=== PATIENT | male | born 1965 | race Caucasian/White ===

== ENCOUNTER 2017-02-11 06:20 | Inpatient (IN) | payer BC ==
[~2017-02-11] VITALS: Ht 188 cm; Wt 98.4 kg
[2017-02-11] VITALS (34 sets, daily range): BP systolic 133–238; BP diastolic 46–125; PULSE 54–101; RESP 11–26; TEMP 97.6–98.3; O2SAT 93–98
[~2017-02-11 06:20] MED LIST: GLYB1TAB93 PO; HYDR-3288 PO; INDO50CA PO; LOSA100T PO; METO100T PO; TEMA15CA PO
[2017-02-11] MEDS ORDERED: ASPIRIN 81 MG CHEW TAB ONE (06:38)
[2017-02-11] MEDS ORDERED: SODIUM CHLORIDE 0.9% FLUSH 10 ML FLUSH IVF PRN (06:45)
[2017-02-11] MEDS ORDERED: ASPIRIN 81 MG CHEW TAB PO ONE (06:45)
[2017-02-11] MEDS ORDERED: SODIUM CHLOR 0.9% 1000 ML INJ 1,000 ML IV SCH (06:45)
[2017-02-11] MEDS ORDERED: ONDANSETRON HCL 4 MG/2 ML VIAL IV PUSH ONE (06:45)
--- NOTE | 2017-02-11 06:47 | PD ---
HPI Chief Complaint: chest pain Time Seen by Provider: 06:40 Travel History International Travel<30 days: No Contact w/Intl Traveler<30days: No Traveled to known affect area: No History of Present Illness HPI 52-year-old male presents to the emergency department for complaint of chest pain. Patient has associated nausea. Patient has history of hypertension and diabetes. Patient is a nonsmoker. Patient has family history of cardiac disease with brother passing away at age 63 from myocardial infarction. Patient states he is very physically active and wrote his bicycle 30 miles on Friday. Patient denies any known history of gallbladder disease but has noted some abdominal discomfort as well. Patient does take antihypertensives and diabetic medications. Patient rates his pain as moderate to severe. No report of referred neck jaw back shoulder arm pain or shortness of breath or diaphoresis. No recent long distance travel protracted bedrest her surgical procedure. Patient is not described as pleuritic. PFSH Past Medical History Narrative Medical Diabetes hypertension: No tobacco use: Nursing notes reviewed Autoimmune Disease: No Blood Disorders: No Heart Rhythm Problems: No Cancer: No Cardiovascular Problems: Yes High Cholesterol: No Chest Pain: No Congestive Heart Failure: No Diabetes: Yes Diminished Hearing: No Endocrine: No Genitourinary: No Hypertension: Yes Immune Disorder: No Implanted Vascular Access Dvce: Yes (PICC RIGHT UPPER ARM) Musculoskeletal: Yes (CELLULITIS RIGHT LOWER LEG) Neurologic: No Psychiatric: No Reproductive: No Respiratory: No Immunizations Current: Yes Thyroid Disease: No Past Surgical History Other Surgery: Yes (LEFT HIP 1991, HAMSTRING REPAIR-HEMOTOMA) Social History Alcohol Use: Yes (OCCASIONAL) Tobacco Use: No Substance Use: No Allergies-Medications (Allergen,Severity, Reaction): Coded Allergies: *MDRO Multi-Drug Resistant Organism (Unverified Adverse Reaction, Unknown , 02/11/17) MRSA Reported Meds & Prescriptions Reported Meds & Active Scripts Active Reported Temazepam 15 Mg Cap 15 Mg PO HS PRN Metoprolol Tartrate 100 Mg Tab 100 Mg PO BID Glyburide-Metformin 2.5-500 Mg Tab 1 Tab PO BID Take with a meal Review of Systems Except as stated in HPI: all other systems reviewed are Neg Eyes: No: Visual changes HENT: No: Headaches Cardiovascular: Positive: Chest Pain or Discomfort Respiratory: No: Shortness of Breath Gastrointestinal: Positive: Nausea, Abdominal Pain Musculoskeletal: No: Myalgias, Arthralgias, Pain Skin: No Rash Neurologic: No: Weakness Psychiatric: No: Anxiety Hematologic/Lymphatic: No: Lymph Node Enlargement Physical Exam Narrative GENERAL: Well-developed well-nourished male appears mildly anxious in no respiratory distress SKIN: Warm and dry. HEAD: Normocephalic. EYES: No scleral icterus. No injection or drainage. NECK: Supple, trachea midline. No JVD or lymphadenopathy. CARDIOVASCULAR: Regular rate and rhythm without murmurs, gallops, or rubs. RESPIRATORY: Breath sounds equal bilaterally. No accessory muscle use. GASTROINTESTINAL: Abdomen soft, bilateral upper quadrant tenderness to palpation without guarding or rebound and no palpable pulsatile mass, nondistended. MUSCULOSKELETAL: No cyanosis, or edema. Radial and dorsalis pedis pulses 2+ to palpation bilaterally BACK: Nontender without obvious deformity. No CVA tenderness. Data Data Last Documented VS Vital Signs Date Time Temp Pulse Resp B/P (MAP) Pulse Ox O2 Delivery O2 Flow Rate FiO2 02/11/17 07:03 92 18 209/108 (141) 97 Room Air 02/11/17 06:35 98.3 Orders Orders Aspirin Chew (Aspirin Chew) (02/11/17 06:38) Electrocardiogram (02/11/17 06:40) Ckmb (Isoenzyme) Profile (02/11/17 06:40) Complete Blood Count With Diff (02/11/17 06:40) Comprehensive Metabolic Panel (02/11/17 06:40) Magnesium (Mg) (02/11/17 06:40) Prothrombin Time / Inr (Pt) (02/11/17 06:40) Act Partial Throm Time (Ptt) (02/11/17 06:40) Troponin I (02/11/17 06:40) Lipase (02/11/17 06:40) Chest, Single Ap (02/11/17 06:40) Ecg Monitoring (02/11/17 06:40) Bilateral Bp Monitoring (02/11/17 06:40) Iv Access Insert/Monitor (02/11/17 06:40) Oximetry (02/11/17 06:40) Oxygen Administration (02/11/17 06:40) Aspirin Chew (Aspirin Chew) (02/11/17 06:45) Sodium Chloride 0.9% Flush (Ns Flush) (02/11/17 06:45) Nitroglycerin Sl (Nitrostat Sl) (02/11/17 06:45) Sodium Chlor 0.9% 1000 Ml Inj (Ns 1000 M (02/11/17 06:45) Ondansetron Inj (Zofran Inj) (02/11/17 06:45) Acetaminophen (Tylenol) (02/11/17 07:00) Ct Abd/Pel W Iv Contrast(Rout) (02/11/17 ) Hydromorphone Pf Inj (Dilaudid Pf Inj) (02/11/17 07:15) Labs Laboratory Tests Test 02/11/17 06:40 White Blood Count 3.7 TH/MM3 Red Blood Count 4.07 MIL/MM3 Hemoglobin 13.9 GM/DL Hematocrit 40.1 % Mean Corpuscular Volume 98.6 FL Mean Corpuscular Hemoglobin 34.1 PG Mean Corpuscular Hemoglobin Concent 34.6 % Red Cell Distribution Width 12.0 % Platelet Count 72 TH/MM3 Mean Platelet Volume 8.4 FL Neutrophils (%) (Auto) 60.7 % Lymphocytes (%) (Auto) 23.1 % Monocytes (%) (Auto) 12.2 % Eosinophils (%) (Auto) 2.5 % Basophils (%) (Auto) 1.5 % Neutrophils # (Auto) 2.3 TH/MM3 Lymphocytes # (Auto) 0.8 TH/MM3 Monocytes # (Auto) 0.4 TH/MM3 Eosinophils # (Auto) 0.1 TH/MM3 Basophils # (Auto) 0.1 TH/MM3 CBC Comment AUTO DIFF Prothrombin Time 12.7 SEC Prothromb Time International Ratio 1.1 RATIO Activated Partial Thromboplast Time 27.5 SEC Blood Urea Nitrogen 15 MG/DL Creatinine 1.30 MG/DL Random Glucose 261 MG/DL Total Protein 8.0 GM/DL Albumin 3.4 GM/DL Calcium Level 8.7 MG/DL Magnesium Level 1.4 MG/DL Alkaline Phosphatase 156 U/L Aspartate Amino Transf (AST/SGOT) 96 U/L Alanine Aminotransferase (ALT/SGPT) 66 U/L Total Bilirubin 1.6 MG/DL Sodium Level 137 MEQ/L Potassium Level 3.3 MEQ/L Chloride Level 97 MEQ/L Carbon Dioxide Level 30.1 MEQ/L Anion Gap 10 MEQ/L Estimat Glomerular Filtration Rate 58 ML/MIN Total Creatine Kinase 158 U/L Lipase 1470 U/L [facility] Medical Decision Making Medical Screen Exam Complete: Yes Emergency Medical Condition: Yes Medical Record Reviewed: Yes Interpretation(s) EKG: Normal sinus rhythm rate [address] elevation or injury pattern change noted Differential Diagnosis Chest pain, ACS, myocardial infarction, esophageal spasm, biliary colic, abdominal aortic aneurysm, dissection Narrative Course patient placed on janitor custodian and pulse oximetry; EKG ordered and is normal sinus rhythm rate of [address] elevation or injury pattern change noted; patient administered aspirin 162 mg by mouth along with sublingual nitroglycerin and Zofran 4 mg IV administered maintenance fluid of normal saline 100 cc an hour ordered Patient administered sublingual nitroglycerin times one with out significant improvement of chest pain; patient notes severe headache and does not want any additional nitroglycerin. Patient given acetaminophen 650 mg by mouth. CBC is automated differential noted to have mild decreased total white cell count and thrombocytopenia. Chemistries remarkable for lipase 1470; total bilirubin mildly elevated at 1.6; CT abdomen and pelvis kidney stone protocol ordered to evaluate for acute pancreatitis versus gallstone pancreatitis Patient with mild hypokalemia and hypomagnesemia; blood sugar elevated at [address] is [address] has been ordered patient administered Dilaudid 1 mg IV for pain management and will be assessed blood pressure after pain addressed. @ [phone] care signed over to oncoming MD Dr Valle Diagnosis Primary Impression: Pancreatitis Admitting Information Admitting Physician Requests: Admit Lizzette Salguero MD Feb 11, 2017 06:47
[2017-02-11] MEDS: NITROGLYCERIN 0.4 MG SL 25 TABS/BTL SL SCH ×3 (06:50→06:58)
[2017-02-11 06:51] LABS: AUTOMATED NEUTROPHIL # 2.3 TH/MM3 (1.8-7.7); BASOPHIL # 0.1 TH/MM3 (0-0.2); BASOPHIL % 1.5 % (0.0-2.0); EOSINOPHIL # 0.1 TH/MM3 (0-0.4); EOSINOPHIL % 2.5 % (0.0-4.0); HEMATOCRIT 40.1 % (39.0-51.0); LYMPH % 23.1 % (9.0-44.0); LYMPHOCYTE # 0.8 TH/MM3 (1.0-4.8); MEAN CELL VOLUME 98.6 FL (80.0-100.0); MEAN CORPUSCULAR HEMOGLOBIN 34.1 PG (27.0-34.0); MEAN CORPUSCULAR HGB CONC 34.6 % (32.0-36.0); MONO % 12.2 % (0.0-8.0); NEUT % 60.7 % (16.0-70.0); PLATELET COUNT 72 TH/MM3 (150-450); RED BLOOD COUNT 4.07 MIL/MM3 (4.50-5.90); WHITE BLOOD COUNT 3.7 TH/MM3 (4.0-11.0)
[2017-02-11 06:57] LABS: HEMO FLAGS AUTO DIFF
[2017-02-11 07:00] LABS: CHLORIDE 97 MEQ/L (98-107); POTASSIUM 3.3 MEQ/L (3.5-5.1); SODIUM (NA) 137 MEQ/L (136-145)
[2017-02-11] MEDS ORDERED: ACETAMINOPHEN 325 MG TAB PO ONE (07:00)
[2017-02-11 07:04] LABS: ANION GAP 10 MEQ/L (5-15); APTT (PATIENT) 27.5 SEC (24.3-30.1); BICARBONATE 30.1 MEQ/L (21.0-32.0); BLOOD UREA NITROGEN 15 MG/DL (7-18); INTERNATIONAL NORMALIZED RATIO 1.1 RATIO; MAGNESIUM 1.4 MG/DL (1.5-2.5); PROTHROMBIN TIME - PATIENT 12.7 SEC (9.8-11.6)
--- NOTE | 2017-02-11 07:04 | RADRPT ---
EXAM DATE/TIME: 02/11/2017 06:52 [facility] COMPARISON: CHEST SINGLE AP, June 30, 2014, 17:00. INDICATIONS : Chest pain & nausea. MEDICAL HISTORY : Hypertension. Diabetic. Cellulitis right lower leg. SURGICAL HISTORY : None. Bilateral arthroscopic knee. Left hip muscular surgery. PICC line. ENCOUNTER: Initial ACUITY: 1 day PAIN SCORE: 7/10 LOCATION: chest FINDINGS: A single view of the chest demonstrates the lungs to be symmetrically aerated without evidence of mas s, infiltrate or effusion. The cardiomediastinal contours are unremarkable. Osseous structures are intact. CONCLUSION: No evidence of acute cardiopulmonary disease. Rom Pittman MD on February 11, 2017 at 7:02 Board Certified Radiologist. This report was verified electronically.
[2017-02-11 07:07] LABS: ALT (GPT) 66 U/L (12-78); AST (GOT) 96 U/L (15-37); GLOMERULAR FILTRATION RATE 58 ML/MIN (>89)
[2017-02-11 07:08] LABS: TOTAL BILIRUBIN ADULT 1.6 MG/DL (0.2-1.0)
[2017-02-11 07:10] LABS: ALKALINE PHOSPHATASE 156 U/L (45-117); CREATINE KINASE 158 U/L (39-308)
[2017-02-11] MEDS ORDERED: HYDROmorphone HCL PF 1 MG/ML VIAL IV PUSH ONE (07:15)
[2017-02-11 07:29] LABS: SCAN/DIFF AUTO DIFF CONFIRMED
[2017-02-11 07:35] LABS: CKMB 2.4 NG/ML (0.5-3.6)
[2017-02-11] MEDS ORDERED: METFORMIN HOLD POST IV CONTRAST SCH ×2 (07:50)
[2017-02-11] MEDS ORDERED: IOHEXOL 350 MG/ML 10 ML VIAL (for RAD DIAG) IVCONTRAST ONE (08:03)
--- NOTE | 2017-02-11 08:13 | PD ---
Physical Exam Date Seen by Provider: Feb 11, 2017 Time Seen by Provider: 08:10 Narrative The patient is a 52-year-old male who was initially evaluated by the previous physician, Dr. Salguero. Please refer to the initial history, physical, diagnostic evaluation, and treatment modality plan. The patient was signed out at [address] of the abdomen and pelvis pending for elevated lipase greater than 1400 consistent with pancreatitis. Data Data Last Documented VS Vital Signs Date Time Temp Pulse Resp B/P (MAP) Pulse Ox O2 Delivery O2 Flow Rate FiO2 02/11/17 09:28 77 02/11/17 09:19 18 215/119 (151) 97 Room Air 02/11/17 06:35 98.3 Orders Orders Aspirin Chew (Aspirin Chew) (02/11/17 06:38) Electrocardiogram (02/11/17 06:40) Ckmb (Isoenzyme) Profile (02/11/17 06:40) Complete Blood Count With Diff (02/11/17 06:40) Comprehensive Metabolic Panel (02/11/17 06:40) Magnesium (Mg) (02/11/17 06:40) Prothrombin Time / Inr (Pt) (02/11/17 06:40) Act Partial Throm Time (Ptt) (02/11/17 06:40) Troponin I (02/11/17 06:40) Lipase (02/11/17 06:40) Chest, Single Ap (02/11/17 06:40) Ecg Monitoring (02/11/17 06:40) Bilateral Bp Monitoring (02/11/17 06:40) Iv Access Insert/Monitor (02/11/17 06:40) Oximetry (02/11/17 06:40) Oxygen Administration (02/11/17 06:40) Aspirin Chew (Aspirin Chew) (02/11/17 06:45) Sodium Chloride 0.9% Flush (Ns Flush) (02/11/17 06:45) Nitroglycerin Sl (Nitrostat Sl) (02/11/17 06:45) Sodium Chlor 0.9% 1000 Ml Inj (Ns 1000 M (02/11/17 06:45) Ondansetron Inj (Zofran Inj) (02/11/17 06:45) Acetaminophen (Tylenol) (02/11/17 07:00) Ct Abd/Pel W Iv Contrast(Rout) (02/11/17 ) Hydromorphone Pf Inj (Dilaudid Pf Inj) (02/11/17 07:15) CKMB (02/11/17 06:40) CKMB% (02/11/17 06:40) Iohexol 350 Inj (Omnipaque 350 Inj) (02/11/17 08:03) Labetalol Inj (Trandate Inj) (02/11/17 08:15) Morphine Inj (Morphine Inj) (02/11/17 08:15) Labetalol Inj (Trandate Inj) (02/11/17 09:30) Admit Order (Ed Use Only) (02/11/17 09:29) Labs Laboratory Tests Test 02/11/17 06:40 White Blood Count 3.7 TH/MM3 Red Blood Count 4.07 MIL/MM3 Hemoglobin 13.9 GM/DL Hematocrit 40.1 % Mean Corpuscular Volume 98.6 FL Mean Corpuscular Hemoglobin 34.1 PG Mean Corpuscular Hemoglobin Concent 34.6 % Red Cell Distribution Width 12.0 % Platelet Count 72 TH/MM3 Mean Platelet Volume 8.4 FL Neutrophils (%) (Auto) 60.7 % Lymphocytes (%) (Auto) 23.1 % Monocytes (%) (Auto) 12.2 % Eosinophils (%) (Auto) 2.5 % Basophils (%) (Auto) 1.5 % Neutrophils # (Auto) 2.3 TH/MM3 Lymphocytes # (Auto) 0.8 TH/MM3 Monocytes # (Auto) 0.4 TH/MM3 Eosinophils # (Auto) 0.1 TH/MM3 Basophils # (Auto) 0.1 TH/MM3 CBC Comment AUTO DIFF Differential Comment AUTO DIFF CONFIRMED Prothrombin Time 12.7 SEC Prothromb Time International Ratio 1.1 RATIO Activated Partial Thromboplast Time 27.5 SEC Blood Urea Nitrogen 15 MG/DL Creatinine 1.30 MG/DL Random Glucose 261 MG/DL Total Protein 8.0 GM/DL Albumin 3.4 GM/DL Calcium Level 8.7 MG/DL Magnesium Level 1.4 MG/DL Alkaline Phosphatase 156 U/L Aspartate Amino Transf (AST/SGOT) 96 U/L Alanine Aminotransferase (ALT/SGPT) 66 U/L Total Bilirubin 1.6 MG/DL Sodium Level 137 MEQ/L Potassium Level 3.3 MEQ/L Chloride Level 97 MEQ/L Carbon Dioxide Level 30.1 MEQ/L Anion Gap 10 MEQ/L Estimat Glomerular Filtration Rate 58 ML/MIN Total Creatine Kinase 158 U/L Creatine Kinase MB 2.4 NG/ML Troponin I LESS THAN 0.02 NG/ML Lipase 1470 U/L [facility] Medical Record Reviewed: Yes Supervised Visit with SARKIS: No Interpretation(s) Laboratory Tests Test 02/11/17 06:40 White Blood Count 3.7 TH/MM3 Red Blood Count 4.07 MIL/MM3 Hemoglobin 13.9 GM/DL Hematocrit 40.1 % Mean Corpuscular Volume 98.6 FL Mean Corpuscular Hemoglobin 34.1 PG Mean Corpuscular Hemoglobin Concent 34.6 % Red Cell Distribution Width 12.0 % Platelet Count 72 TH/MM3 Mean Platelet Volume 8.4 FL Neutrophils (%) (Auto) 60.7 % Lymphocytes (%) (Auto) 23.1 % Monocytes (%) (Auto) 12.2 % Eosinophils (%) (Auto) 2.5 % Basophils (%) (Auto) 1.5 % Neutrophils # (Auto) 2.3 TH/MM3 Lymphocytes # (Auto) 0.8 TH/MM3 Monocytes # (Auto) 0.4 TH/MM3 Eosinophils # (Auto) 0.1 TH/MM3 Basophils # (Auto) 0.1 TH/MM3 CBC Comment AUTO DIFF Differential Comment AUTO DIFF CONFIRMED Prothrombin Time 12.7 SEC Prothromb Time International Ratio 1.1 RATIO Activated Partial Thromboplast Time 27.5 SEC Blood Urea Nitrogen 15 MG/DL Creatinine 1.30 MG/DL Random Glucose 261 MG/DL Total Protein 8.0 GM/DL Albumin 3.4 GM/DL Calcium Level 8.7 MG/DL Magnesium Level 1.4 MG/DL Alkaline Phosphatase 156 U/L Aspartate Amino Transf (AST/SGOT) 96 U/L Alanine Aminotransferase (ALT/SGPT) 66 U/L Total Bilirubin 1.6 MG/DL Sodium Level 137 MEQ/L Potassium Level 3.3 MEQ/L Chloride Level 97 MEQ/L Carbon Dioxide Level 30.1 MEQ/L Anion Gap 10 MEQ/L Estimat Glomerular Filtration Rate 58 ML/MIN Total Creatine Kinase 158 U/L Creatine Kinase MB 2.4 NG/ML Troponin I LESS THAN 0.02 NG/ML Lipase 1470 U/L CT of the abdomen and pelvis reveals hypodense liver compatible with fatty infiltration or hepatocellular disease. Moderate splenomegaly without adenopathy. Differential Diagnosis Differential diagnosis includes pancreatitis, choledocholithiasis, cholecystitis , gastritis, peptic ulcer disease, atypical acute coronary syndrome. Narrative Course The patient was initially evaluated by the previous physician, Dr. Salguero. Please refer to the initial history, physical, diagnostic evaluation, and treatment modality plan. The patient was signed out at [address] of the abdomen and pelvis pending for acute pancreatitis. CT of the abdomen and pelvis reveals hepatocellular disease and splenomegaly, most likely related to alcohol use, lipase is elevated consistent with pancreatitis. I discussed the patient with the on-call medical service who agrees with admission. Physician Communication Physician Communication The on-call medical service was paged for admission. I discussed the patient Dr. Ríos who agrees with admission. Diagnosis Primary Impression: Pancreatitis Qualified Codes: K85.90 - Acute pancreatitis without necrosis or infection, unspecified Admitting Information Admitting Physician Requests: Admit Condition: Stable Cristian Valle MD Feb 11, 2017 08:13
[2017-02-11] MEDS ORDERED: LABETALOL HCL 100 MG/20 ML VIAL IV PUSH ONE ×2 (08:15→09:30)
[2017-02-11] MEDS: MORPHINE SULFATE 4 MG/ML INJ IV PUSH ONE (08:15)
--- NOTE | 2017-02-11 08:50 | RADRPT ---
EXAM DATE/TIME: 02/11/2017 07:51 [facility] COMPARISON: No previous studies available for comparison. INDICATIONS : Left upper abdominal pain. IV CONTRAST: 90 cc Omnipaque 350 (iohexol) IV ORAL CONTRAST: No oral contrast ingested. RADIATION DOSE: 15.98 CTDIvol (mGy) MEDICAL HISTORY : Hypertension. Diabetes. SURGICAL HISTORY : Left hip muscle repair. ENCOUNTER: Initial ACUITY: 2 days PAIN SCALE: 5/10 LOCATION: Left upper quadrant TECHNIQUE: Volumetric scanning of the abdomen and pelvis was performed. Using automated exposure control and ad justment of the mA and/or kV according to patient size, radiation dose was kept as low as reasonably achievable to obtain optimal diagnostic quality images. DICOM format image data is available electro nically for review and comparison. FINDINGS: Old left rib fractures are present. No pulmonary nodules are identified. There is decreased density of the liver with respect to the spleen compatible with fatty infiltration . The spleen is unremarkable. The spleen is enlarged measuring 20 cm. The gallbladder and pancreas ar e unremarkable. No intrahepatic or extrahepatic ductal dilatation is seen. The adrenal glands and kid neys appear normal bilaterally. No hydronephrosis or mass lesions are identified. No abnormally enlar ged lymph nodes are identified. Examination of the pelvis demonstrates no evidence of free fluid or pelvic mass. No abnormally enlarg ed inguinal or retroperitoneal lymph nodes are present. The bladder is unremarkable. Good numerous ca lcifications in the prostate bed as well as calcifications of the vas deferens. CONCLUSION: 1. Hypodense liver compatible with fatty infiltration or hepatocellular disease. 2. Moderate splenomegaly without adenopathy Ernie De Santiago MD on February 11, 2017 at 8:45 Board Certified Radiologist. This report was verified electronically.
[2017-02-11] MEDS ORDERED: NALOXONE HCL 0.4 MG/ML AMP IV PUSH PRN (09:30)
[2017-02-11] MEDS ORDERED: LORazepam 2 MG/ML VIAL IV PUSH PRN (09:30)
[2017-02-11] MEDS ORDERED: DEXTROSE 50% IN WATER 50 ML VIAL(D50) IV PUSH PRN (09:45)
[2017-02-11] MEDS ORDERED: GLUCAGON 1 MG/ML VIAL OTHER PRN (09:45)
[2017-02-11] MEDS: ACETAMINOPHEN/HYDROcodone 325 MG/10 MG TAB PO PRN ×2 (09:47→20:27)
[2017-02-11] MEDS: SODIUM CHLOR 0.9% 1000 ML INJ 1,000 ML IV SCH ×2 (09:47→18:45)
[2017-02-11] MEDS ORDERED: BISACODYL 10 MG SUPP RECTAL PRN (10:00)
[2017-02-11] MEDS ORDERED: POTASSIUM CHLORIDE 10 MEQ CONTROLLED RELEASE TAB PO ONE ×2 (10:00→17:00)
[2017-02-11] MEDS ORDERED: SENNOSIDES 8.6 MG TAB PO PRN (10:00)
[2017-02-11] MEDS ORDERED: LACTULOSE SYRUP 20 GM/30 ML CUP PO PRN (10:00)
[2017-02-11] MEDS ORDERED: ENOXAPARIN SODIUM 40 MG/0.4 ML SYRINGE SQ SCH (10:00)
[2017-02-11] MEDS ORDERED: cloNIDine HCL 0.1 MG TAB PO PRN (10:00)
[2017-02-11] MEDS ORDERED: HYDROmorphone HCL PF 1 MG/ML VIAL IV PUSH PRN (10:00)
[2017-02-11] MEDS ORDERED: METOCLOPRAMIDE HCL 10 MG/2 ML VIAL IV PUSH PRN (11:00)
[2017-02-11] MEDS: niCARdipine INJ 25 MG in SODIUM CHLOR 0.9% 250 ML INJ 240 ML IV PRN ×2 (11:06→17:39)
[2017-02-11 11:47] LABS: HDL CHOLESTEROL 60.8 MG/DL (40.0-60.0)
[2017-02-11] MEDS: INSULIN ASPART SUPPLEMENTAL SCALE SQ SCH ×3 (12:00→20:26)
[2017-02-11] MEDS: LORazepam 1 MG TAB PO PRN ×2 (13:10→17:15)
[2017-02-11] MEDS: SODIUM CHLORIDE 0.9% FLUSH 10 ML FLUSH IV FLUSH PRN (13:11)
--- NOTE | 2017-02-11 16:41 | EKG ---
Date Performed: 02/11/2017 Time Performed: 06:38:05 PTAGE: 52 years EKG: Sinus rhythm Compared to prior tracing no significant change NORMAL ECG PREVIOUS TRACING : 01/12/2016 17.00 DOCTOR: Kanchan Calloway Interpretating Date/Time 02/11/2017 16:38:32
[2017-02-11] MEDS ORDERED: KETOROLAC TROMETHAMINE 30 MG/ML (IVP) VIAL IV PUSH PRN (16:45)
--- NOTE | 2017-02-11 16:52 | HHI.HP ---
[facility] Service [facility] Primary Care Physician Pal Hinojosa M.D. Admission Diagnosis pancreatitis, hypertension Diagnoses: Travel History International Travel<30 Days: No Contact w/Intl Traveler <30 Da: No Traveled to Known Affected Are: No History of Present Illness This is a 52 year-old male with past medical history of hypertension who presents to the ER complaining of a 24-36 hour of upper abdominal pain/ chest pain radiating to his interscapular area. The pain started as a dull ache and gradually got more severe. No radiation. He did have one episode of emesis in the emergency department however has not had any other emesis. No palliative or provocative factors. The patient had negative troponin and EKG in the emergency department and pain did not respond to nitroglycerin. However lipase was elevated. Abdominal CT scan showed a hypodense liver consistent with hepatocellular disease however pancreas appeared normal. The patient endorses that he will drink up to a 12 pack of [place] light. He denies any history of withdrawal symptoms. His blood pressure was also markedly elevated in the emergency department requiring multiple doses of IV labetalol and finally a Cardene drip was started. Blood pressure is now 167/86. He states normally his systolic blood pressure ranges from 140-150. His primary care physician is Dr. Hinojosa. The patient complains of headache after the nitroglycerin. Review of Systems Constitutional: DENIES: Fever, Chills Eyes: DENIES: Blurred vision, Diplopia Ears, nose, mouth, throat: DENIES: Throat pain, Running Nose Respiratory: DENIES: Cough, Shortness of breath Cardiovascular: COMPLAINS OF: Chest pain, DENIES: Palpitations, Dyspnea on Exertion Gastrointestinal: COMPLAINS OF: Nausea, Vomiting, DENIES: Constipation, Diarrhea Genitourinary: DENIES: Urgency, Dysuria Musculoskeletal: COMPLAINS OF: Back pain (now having lower back pain) Integumentary: DENIES: Rash Hematologic/lymphatic: DENIES: Lymphadenopathy Neurologic: COMPLAINS OF: Headache, DENIES: Paresthesias Psychiatric: COMPLAINS OF: Anxiety, DENIES: Confusion Past Family Social History Past Medical History Hypertension Type 2 diabetes Reported Medications Allergies Coded Allergies Type Severity Reaction Last Updated Verified *MDRO Multi-Drug Resistant Organism Adverse Reaction Unknown 02/11/17 No Active Scripts Medications Dose Route/Sig Max Daily Dose Days Date Category Dose Instructions Temazepam 15 Mg Cap 15 Mg PO HS PRN 11/20/16 Reported Metoprolol Tartrate 100 Mg Tab 100 Mg PO BID 11/20/16 Reported Glyburide-Metformin 2.5-500 Mg Tab 1 Tab PO BID 11/20/16 Reported Take with a meal Allergies: Coded Allergies: *MDRO Multi-Drug Resistant Organism (Unverified Adverse Reaction, Unknown , 02/11/17) MRSA Family History His father had small cell carcinoma of the lung Social History No history of tobacco use Alcohol use as per history of present illness Physical Exam Vital Signs Vital Signs Date Time Temp Pulse Resp B/P (MAP) Pulse Ox O2 Delivery O2 Flow Rate FiO2 02/11/17 13:45 74 16 167/86 (113) 93 02/11/17 13:35 76 22 162/92 (115) 94 02/11/17 13:30 78 23 167/85 (112) 95 02/11/17 13:00 80 17 160/82 (108) 95 02/11/17 12:51 78 16 165/81 (109) 97 02/11/17 12:48 70 18 168/83 (111) 98 02/11/17 11:45 76 18 177/86 (116) 98 Room Air 02/11/17 11:40 75 02/11/17 11:39 75 18 185/82 (116) 97 02/11/17 11:06 74 228/117 02/11/17 10:59 18 02/11/17 10:23 220/116 (150) Automatic Cuff 02/11/17 09:28 77 02/11/17 09:19 77 18 215/119 (151) 97 Room Air 02/11/17 08:21 18 02/11/17 08:16 84 18 98 Room Air 02/11/17 08:15 84 18 231/119 (156) 97 Room Air 02/11/17 07:55 18 02/11/17 07:41 18 02/11/17 07:03 92 18 209/108 (141) 97 Room Air 02/11/17 07:03 18 02/11/17 06:53 96 18 96 Room Air 02/11/17 06:51 100 18 203/116 (145) 97 Room Air 02/11/17 06:49 96 Room Air 02/11/17 06:49 96 18 234/125 (161) 96 Room Air 223/122 (155) 02/11/17 06:35 98.3 101 18 238/120 (159) 97 02/11/17 06:28 98.3 101 18 238/120 (159) 97 Physical Exam GENERAL: This is a well-nourished, well-developed patient, appears mildly anxious but in no apparent distress. SKIN: No rashes, ecchymoses or lesions. Cool and dry. HEAD: Atraumatic. Normocephalic. EYES: Pupils equal round and reactive. Extraocular motions intact. No scleral icterus. No injection or drainage. NECK: Trachea midline. No JVD or lymphadenopathy. CARDIOVASCULAR: Regular rate and rhythm without murmurs, gallops, or rubs. RESPIRATORY: Clear to auscultation. Breath sounds equal bilaterally. No wheezes , rales, or rhonchi. GASTROINTESTINAL: Bowel sounds normal. Abdomen soft, tender in epigastrium without guarding, nondistended. MUSCULOSKELETAL: Extremities without clubbing, cyanosis, or edema. No joint tenderness, effusion, or edema noted. NEUROLOGICAL: Awake and alert. Motor and sensory grossly within normal limits. Fine tremors of upper extremity. Appears mildly anxious. Normal speech. Laboratory Laboratory Tests Test 02/11/17 06:40 White Blood Count 3.7 Red Blood Count 4.07 Hemoglobin 13.9 Hematocrit 40.1 Mean Corpuscular Volume 98.6 Mean Corpuscular Hemoglobin 34.1 Mean Corpuscular Hemoglobin Concent 34.6 Red Cell Distribution Width 12.0 Platelet Count 72 Mean Platelet Volume 8.4 Neutrophils (%) (Auto) 60.7 Lymphocytes (%) (Auto) 23.1 Monocytes (%) (Auto) 12.2 Eosinophils (%) (Auto) 2.5 Basophils (%) (Auto) 1.5 Neutrophils # (Auto) 2.3 Lymphocytes # (Auto) 0.8 Monocytes # (Auto) 0.4 Eosinophils # (Auto) 0.1 Basophils # (Auto) 0.1 CBC Comment AUTO DIFF Differential Comment AUTO DIFF CONFIRMED Prothrombin Time 12.7 Prothromb Time International Ratio 1.1 Activated Partial Thromboplast Time 27.5 Blood Urea Nitrogen 15 Creatinine 1.30 Random Glucose 261 Total Protein 8.0 Albumin 3.4 Calcium Level 8.7 Magnesium Level 1.4 Alkaline Phosphatase 156 Aspartate Amino Transf (AST/SGOT) 96 Alanine Aminotransferase (ALT/SGPT) 66 Total Bilirubin 1.6 Sodium Level 137 Potassium Level 3.3 Chloride Level 97 Carbon Dioxide Level 30.1 Anion Gap 10 Estimat Glomerular Filtration Rate 58 Total Creatine Kinase 158 Creatine Kinase MB 2.4 Troponin I LESS THAN 0.02 Triglycerides Level 119 Cholesterol Level 182 LDL Cholesterol 97 HDL Cholesterol 60.8 Cholesterol/HDL Ratio 2.99 Lipase 1470 Result Diagram: 02/11/1763902/11/17639 Imaging Last Impressions Chest X-Ray 02/11/17639 Signed Impressions: Service Date/Time: Saturday, February 11, 2017 06:52 - CONCLUSION: No evidence of acute cardiopulmonary disease. Rom Pittman MD Abdomen/Pelvis CT 02/11/17 0000 Signed Impressions: Service Date/Time: Saturday, February 11, 2017 07:51 - CONCLUSION: 1. Hypodense liver compatible with fatty infiltration or hepatocellular disease. 2. Moderate splenomegaly without adenopathy Ernie De Santiago MD Capvish VTE Risk Assessment Caprini VTE Risk Assessment: No/Low Risk (score <= 1) Caprini Risk Assessment Model Point Value = 1 Point Value = 2 Point Value = 3 Point Value = 5 Age 41-60 Minor surgery BMI > 25 kg/m2 Swollen legs Varicose veins or History of unexplained or recurrent spontaneous Oral contraceptives or hormone replacement Sepsis (< 1 month) Serious lung disease, including pneumonia (< 1 month) Abnormal pulmonary function Acute myocardial infarction Congestive heart failure (< 1 month) History of inflammatory bowel disease Medical patient at bed rest Age 61-74 Arthroscopic surgery Major open surgery (> 45 min) Laparoscopic surgery (> 45 min) Malignancy Confined to bed (> 72 hours) Immobilizing plaster cast Central venous access Age >= 75 History of VTE Family history of VTE Factor V Leiden Prothrombin [id number] Lupus anticoagulant Anticardiolipin antibodies Elevated serum homocysteine Heparin-induced thrombocytopenia Other congenital or acquired thrombophilia Stroke (< 1 month) Elective arthroplasty Hip, pelvis, or leg fracture Acute spinal cord injury (< 1 month) Prophylaxis Regimen Total Risk Factor Score Risk Level Prophylaxis Regimen 0-1 Low Early ambulation 2 Moderate Order ONE of the following: *Sequential Compression Device (SCD) *Heparin 5000 units SQ BID 3-4 Higher Order ONE of the following medications: *Heparin 5000 units SQ TID *Enoxaparin/Lovenox 40 mg SQ daily (WT < 150 kg, CrCl > 30 mL/min) *Enoxaparin/Lovenox 30 mg SQ daily (WT < 150 kg, CrCl > 10-29 mL/min) *Enoxaparin/Lovenox 30 mg SQ BID (WT < 150 kg, CrCl > 30 mL/min) AND/OR *Sequential Compression Device (SCD) 5 or more Highest Order ONE of the following medications: *Heparin 5000 units SQ TID (Preferred with Epidurals) *Enoxaparin/Lovenox 40 mg SQ daily (WT < 150 kg, CrCl > 30 mL/min) *Enoxaparin/Lovenox 30 mg SQ daily (WT < 150 kg, CrCl > 10-29 mL/min) *Enoxaparin/Lovenox 30 mg SQ BID (WT < 150 kg, CrCl > 30 mL/min) AND *Sequential Compression Device (SCD) Assessment and Plan Problem List: (1) Hypertensive urgency ICD Code: I16.0 - Hypertensive urgency (2) Thrombocytopenia ICD Code: D69.6 - Thrombocytopenia, unspecified (3) Pancreatitis ICD Code: K85.90 - Acute pancreatitis without necrosis or infection, unspecified Status: Acute (4) Diabetes mellitus ICD Code: E11.9 - Diabetes mellitus Status: Acute Assessment and Plan -Pancreatitis, likely due to alcohol. Abdominal CT scan showed a hypodense liver consistent with hepatocellular disease however pancreas appeared normal. Lipase 1470. Triglycerides not elevated. Will admit for IV fluids, pain control. Clear liquid diet for now. 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 Will follow CBC. -Alcoholism. Patient states that he has only been drinking for the past 6 years. Patient was counseled on alcohol cessation. We will treat him with Ativan as needed for withdrawal symptoms. -Hypertensive urgency. Continue on Cardene drip. Continue his home metoprolol. I will start him on hydrochlorothiazide as well. -Type [address] him on sliding scale insulin with Accu-Chek. -Hypomagnesemia and hypokalemia. Will replete. -DVT prophylaxis with SCDs. Problem Qualifiers (1) Pancreatitis: Qualified Codes: K85.90 - Acute pancreatitis without necrosis or infection, unspecified Alecia Ríos MD Feb 11, 2017 16:52
[2017-02-11] MEDS: METOPROLOL TARTRATE 100 MG TAB PO SCH (19:58)
[2017-02-11] MEDS: MAGNESIUM OXIDE 400 MG TAB PO SCH (19:59)
[2017-02-11] MEDS: SODIUM CHLORIDE 0.9% FLUSH 10 ML FLUSH IV FLUSH SCH (19:59)
[2017-02-11] MEDS: DOCUSATE SODIUM 50 MG/SENNA 8.6 MG TAB PO SCH (19:59)
[2017-02-11] MEDS: MORPHINE SULFATE 4 MG/ML INJ IV PUSH PRN (20:01)
[2017-02-11] MEDS: TEMAZEPAM 15 MG CAP PO PRN (22:45)
[2017-02-12] VITALS (25 sets, daily range): BP systolic 120–180; BP diastolic 55–96; PULSE 54–72; RESP 8–30; TEMP 96.1–98.4; O2SAT 97–99
[2017-02-12] MEDS: niCARdipine INJ 25 MG in SODIUM CHLOR 0.9% 250 ML INJ 240 ML IV PRN (00:08)
[2017-02-12] MEDS: SODIUM CHLOR 0.9% 1000 ML INJ 1,000 ML IV SCH ×3 (02:50→14:22)
[2017-02-12] MEDS: ACETAMINOPHEN/HYDROcodone 325 MG/10 MG TAB PO PRN ×4 (02:58→20:11)
[2017-02-12 05:43] LABS: AUTOMATED NEUTROPHIL # 2.2 TH/MM3 (1.8-7.7); BASOPHIL # 0.1 TH/MM3 (0-0.2); BASOPHIL % 1.3 % (0.0-2.0); EOSINOPHIL # 0.2 TH/MM3 (0-0.4); EOSINOPHIL % 4.4 % (0.0-4.0); HEMATOCRIT 37.5 % (39.0-51.0); LYMPH % 26.5 % (9.0-44.0); LYMPHOCYTE # 1.1 TH/MM3 (1.0-4.8); MEAN CELL VOLUME 99.4 FL (80.0-100.0); MEAN CORPUSCULAR HEMOGLOBIN 34.8 PG (27.0-34.0); NEUT % 58.8 % (16.0-70.0); PLATELET COUNT 64 TH/MM3 (150-450); RED BLOOD COUNT 3.77 MIL/MM3 (4.50-5.90); RED CELL DISTRIBUTION WIDTH 11.4 % (11.6-17.2); WHITE BLOOD COUNT 4.1 TH/MM3 (4.0-11.0)
[2017-02-12 05:55] LABS: HEMO FLAGS AUTO DIFF
[2017-02-12 07:00] LABS: BICARBONATE 31.1 MEQ/L (21.0-32.0); MAGNESIUM 1.2 MG/DL (1.5-2.5)
[2017-02-12 07:25] LABS: POTASSIUM 2.7 MEQ/L (3.5-5.1)
[2017-02-12 07:43] LABS: PLATELET ESTIMATE SMEAR LOW (NORMAL); PLATELET MORPHOLOGY NORMAL (NORMAL); SCAN/DIFF AUTO DIFF CONFIRMED
[2017-02-12] MEDS: THIAMINE HCL 100 MG TAB PO SCH (08:15)
[2017-02-12] MEDS: MULTIVITAMINS/MINERALS THERAPEUTIC TAB PO SCH (08:15)
[2017-02-12] MEDS ORDERED: POTASSIUM CHLORIDE 20 MEQ CONTROLLED RELEASE TAB PO ONE (08:15)
[2017-02-12] MEDS: MAGNESIUM OXIDE 400 MG TAB PO SCH ×2 (08:16→20:09)
[2017-02-12] MEDS: METOPROLOL TARTRATE 100 MG TAB PO SCH ×2 (08:16→20:09)
[2017-02-12] MEDS: FOLIC ACID 1 MG TAB PO SCH (08:16)
[2017-02-12] MEDS: DOCUSATE SODIUM 50 MG/SENNA 8.6 MG TAB PO SCH ×2 (08:16→20:08)
[2017-02-12] MEDS: SODIUM CHLORIDE 0.9% FLUSH 10 ML FLUSH IV FLUSH SCH ×2 (08:17→20:09)
[2017-02-12] MEDS: MAGNESIUM SULFATE 1 GM PREMIX 100 ML IV SCH ×2 (08:34→10:24)
[2017-02-12] MEDS: INSULIN ASPART SUPPLEMENTAL SCALE SQ SCH ×4 (08:35→20:10)
[2017-02-12] MEDS: POTASSIUM CHLOR 20 MEQ PREMIX 100 ML IV SCH ×2 (10:13→12:42)
[2017-02-12] MEDS: LISINOPRIL 20 MG TAB PO SCH (10:24)
--- NOTE | 2017-02-12 10:58 | HHI.PR ---
Subjective Remarks Headache resolved. Still with epigastric pain radiating b/t scapula with nausea but no vomiting. BP improved, off cardene drip. pt denies tremors/anxiety. Objective Vitals Vital Signs Date Time Temp Pulse Resp B/P (MAP) Pulse Ox O2 Delivery O2 Flow Rate FiO2 02/12/17 10:00 56 02/12/17 09:00 54 02/12/17 09:00 54 13 148/87 (107) 02/12/17 08:00 62 02/12/17 07:00 97.9 64 20 155/89 (111) 02/12/17 06:01 62 23 148/83 (104) 02/12/17 06:01 62 02/12/17 05:00 56 11 140/78 (98) 02/12/17 04:00 56 9 143/78 (99) 02/12/17 04:00 56 02/12/17 03:15 58 02/12/17 03:00 97.4 58 15 141/75 (97) 98 02/12/17 03:00 58 141/75 02/12/17 02:47 56 10 138/72 (94) 02/12/17 02:00 58 02/12/17 02:00 58 126/55 02/12/17 02:00 58 12 126/55 (78) 02/12/17 01:00 56 10 120/71 (87) 02/12/17 01:00 56 120/71 02/12/17 00:12 56 14 142/75 (97) 02/12/17 00:12 57 142/75 02/12/17 00:08 59 136/76 02/12/17 00:00 56 02/12/17 00:00 97.7 56 15 138/76 (96) 97 02/11/17 23:00 54 133/81 02/11/17 23:00 54 13 133/81 (98) 02/11/17 22:00 56 02/11/17 22:00 56 16 145/84 (104) 02/11/17 22:00 56 145/84 02/11/17 21:00 62 23 148/90 (109) 02/11/17 21:00 62 148/90 02/11/17 20:30 72 26 159/83 (108) 02/11/17 20:00 97.6 70 14 136/86 (103) 97 02/11/17 20:00 70 02/11/17 20:00 70 136/86 02/11/17 19:45 72 12 153/90 (111) 02/11/17 19:29 72 18 156/86 (109) 02/11/17 19:15 74 163/88 02/11/17 19:00 74 21 163/88 (113) 02/11/17 18:30 74 24 160/86 (110) 02/11/17 18:00 70 16 159/85 (109) 02/11/17 17:39 71 163/83 02/11/17 17:30 70 16 163/83 (109) 02/11/17 17:00 70 23 156/84 (108) 02/11/17 16:30 72 16 155/46 (82) 02/11/17 16:18 72 18 158/81 (106) 02/11/17 16:00 97.6 68 14 02/11/17 14:30 72 11 150/80 (103) 02/11/17 14:05 72 19 143/72 (95) 95 02/11/17 14:00 74 18 94 02/11/17 13:45 74 16 167/86 (113) 93 02/11/17 13:35 76 22 162/92 (115) 94 02/11/17 13:30 78 23 167/85 (112) 95 02/11/17 13:00 80 17 160/82 (108) 95 02/11/17 12:51 78 16 165/81 (109) 97 02/11/17 12:48 70 18 168/83 (111) 98 02/11/17 11:45 76 18 177/86 (116) 98 Room Air 02/11/17 11:40 75 02/11/17 11:39 75 18 185/82 (116) 97 02/11/17 11:06 74 228/117 02/11/17 10:59 18 I/O 02/11/17 02/11/17 02/11/17 02/12/17 02/12/17 02/12/17 07:00 15:00 23:00 07:00 15:00 23:00 Intake Total 500 ml 2036 ml 2130 ml 100 ml Output Total 1500 ml Balance 500 ml 2036 ml 630 ml 100 ml Intake Oral 240 ml 960 ml IV Total 500 ml 1796 ml 1170 ml 100 ml Output Urine Total 1500 ml # Voids 1 1 # Bowel Movements 1 Result Diagram: 02/12/1742402/12/17424 Objective Remarks GENERAL: Well-nourished, well-developed patient. SKIN: Warm and dry. HEAD: Normocephalic. EYES: No scleral icterus. No injection or drainage. NECK: Supple, trachea midline. No JVD or lymphadenopathy. CARDIOVASCULAR: Regular rate and rhythm without murmurs, gallops, or rubs. RESPIRATORY: Breath sounds equal bilaterally. No accessory muscle use. GASTROINTESTINAL: Abdomen soft, +ttp epigastrium without guarding, nondistended. EXTREMITIES: No cyanosis, or edema. NEUROLOGICAL: Awake, alert, and oriented x 3. Non-focal. no tremors. A/P Problem List: (1) Hypertensive urgency ICD Code: I16.0 - Hypertensive urgency (2) Thrombocytopenia ICD Code: D69.6 - Thrombocytopenia, unspecified (3) Pancreatitis ICD Code: K85.90 - Acute pancreatitis without necrosis or infection, unspecified Status: Acute (4) Diabetes mellitus ICD Code: E11.9 - Diabetes mellitus Status: Chronic Assessment and Plan -Pancreatitis, likely due to alcohol. Abdominal CT scan showed a hypodense liver consistent with hepatocellular disease however pancreas appeared normal. Lipase 1470, now wnl today. Triglycerides not elevated. Cont IV fluids, clears - trial of advancing to low fat diet. cont pain control. pt advised on ETOH cessation. 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 Will follow CBC, platelets stable today. -Alcoholism. Patient states that he has only been drinking for the past 6 years. Patient was counseled on alcohol cessation. We will treat him with Ativan as needed for withdrawal symptoms. no signs of withdrawal this morning. -Hypertensive urgency. s/p Cardene drip. Continue his home metoprolol. pt reports SBP normally 140-150 in outpatient setting, will start lisinopril 20 mg daily this morning. -Hypomagnesemia and hypokalemia - repleting per IV, recheck lytes at 2 p.m[address] -Type [address] him on sliding scale insulin with Accu-Chek. -DVT prophylaxis with SCDs. Transfer to med surg floor. Problem Qualifiers (1) Pancreatitis: Qualified Codes: K85.90 - Acute pancreatitis without necrosis or infection, unspecified (2) Diabetes mellitus: Alecia Ríos MD Feb 12, 2017 10:58
[2017-02-12] MEDS: ONDANSETRON HCL 4 MG/2 ML VIAL IVP PRN (12:02)
[2017-02-12 14:57] LABS: BICARBONATE 29.8 MEQ/L (21.0-32.0); POTASSIUM 3.7 MEQ/L (3.5-5.1)
[2017-02-12] MEDS: hydrALAZINE HCL 20 MG/ML VIAL IV PRN (17:10)
[2017-02-12] MEDS: TEMAZEPAM 15 MG CAP PO PRN (20:18)
[2017-02-13] VITALS: BP 150/86; PULSE 64; RESP 20; TEMP 96.3; O2SAT 99
[2017-02-13] MEDS: ACETAMINOPHEN/HYDROcodone 325 MG/10 MG TAB PO PRN ×6 (01:11→22:09)
[2017-02-13] MEDS: SODIUM CHLOR 0.9% 1000 ML INJ 1,000 ML IV SCH ×3 (02:00→22:14)
[2017-02-13] MEDS: hydrALAZINE HCL 20 MG/ML VIAL IV PRN ×2 (03:53→18:46)
[2017-02-13 04:00] VITALS: BP 185/103; PULSE 65; RESP 20; TEMP 96.3; O2SAT 98
[2017-02-13 05:29] LABS: AUTOMATED NEUTROPHIL # 2.1 TH/MM3 (1.8-7.7); BASOPHIL # 0.1 TH/MM3 (0-0.2); BASOPHIL % 2.5 % (0.0-2.0); EOSINOPHIL # 0.2 TH/MM3 (0-0.4); EOSINOPHIL % 4.7 % (0.0-4.0); HEMATOCRIT 37.6 % (39.0-51.0); LYMPHOCYTE # 1.1 TH/MM3 (1.0-4.8); MEAN CELL VOLUME 99.8 FL (80.0-100.0); MEAN CORPUSCULAR HEMOGLOBIN 35.3 PG (27.0-34.0); MEAN CORPUSCULAR HGB CONC 35.4 % (32.0-36.0); MONO % 10.6 % (0.0-8.0); NEUT % 53.2 % (16.0-70.0); PLATELET COUNT 67 TH/MM3 (150-450); RED BLOOD COUNT 3.77 MIL/MM3 (4.50-5.90); RED CELL DISTRIBUTION WIDTH 11.6 % (11.6-17.2); WHITE BLOOD COUNT 3.9 TH/MM3 (4.0-11.0)
[2017-02-13 05:31] LABS: HEMO FLAGS AUTO DIFF
[2017-02-13 05:35] LABS: POTASSIUM 3.6 MEQ/L (3.5-5.1)
[2017-02-13 05:39] LABS: BICARBONATE 27.9 MEQ/L (21.0-32.0); MAGNESIUM 1.6 MG/DL (1.5-2.5)
[2017-02-13 05:48] LABS: PLATELET ESTIMATE SMEAR LOW (NORMAL); PLATELET MORPHOLOGY NORMAL (NORMAL); SCAN/DIFF AUTO DIFF CONFIRMED
[2017-02-13 08:00] VITALS: BP 172/100; PULSE 68; RESP 20; TEMP 96.6; O2SAT 99
[2017-02-13] MEDS: INSULIN ASPART SUPPLEMENTAL SCALE SQ SCH ×4 (08:00→22:07)
[2017-02-13] MEDS: HYDROCHLOROTHIAZIDE 25 MG TAB PO SCH (08:24)
[2017-02-13] MEDS: METOPROLOL TARTRATE 100 MG TAB PO SCH ×2 (08:24→21:57)
[2017-02-13] MEDS: THIAMINE HCL 100 MG TAB PO SCH (08:25)
[2017-02-13] MEDS: MAGNESIUM OXIDE 400 MG TAB PO SCH ×2 (08:25→22:08)
[2017-02-13] MEDS: LISINOPRIL 20 MG TAB PO SCH ×2 (08:25→21:56)
[2017-02-13] MEDS: DOCUSATE SODIUM 50 MG/SENNA 8.6 MG TAB PO SCH ×2 (08:26→21:56)
[2017-02-13] MEDS: FOLIC ACID 1 MG TAB PO SCH (08:26)
[2017-02-13] MEDS: MULTIVITAMINS/MINERALS THERAPEUTIC TAB PO SCH (08:27)
[2017-02-13] MEDS: SODIUM CHLORIDE 0.9% FLUSH 10 ML FLUSH IV FLUSH SCH ×2 (08:27→21:00)
[2017-02-13] MEDS: ONDANSETRON HCL 4 MG/2 ML VIAL IVP PRN (08:31)
[2017-02-13] MEDS ORDERED: LISI-515 PO (09:46)
[2017-02-13] MEDS ORDERED: HYDR-3516 PO (09:46)
[2017-02-13] MEDS ORDERED: HYDR25TA5 PO (09:46)
--- NOTE | 2017-02-13 10:07 | HHI.PR ---
Subjective Remarks patient anxious about his blood pressure. also states he has been getting intermittent c/p over the past 6 months, had difficulty with BP con trol. c/p in the ED did NOT improve with nitroglycerin. denies tremors. has not required any prn ativan. he is eating well, tolerated yogurt, eggs exacerbated the epigastric pain - patient counseled again on low fat diet. Objective Vitals Vital Signs Date Time Temp Pulse Resp B/P (MAP) Pulse Ox O2 Delivery O2 Flow Rate FiO2 02/13/17 08:00 96.6 68 20 172/100 (124) 99 02/13/17 04:00 96.3 65 20 185/103 (130) 98 02/13/17 00:00 96.3 64 20 150/86 (107) 99 02/12/17 20:00 96.1 71 20 126/79 (95) 99 Automatic Cuff 02/12/17 17:48 72 30 157/81 (106) 02/12/17 17:46 72 23 158/78 (104) 02/12/17 17:45 72 16 161/89 (113) 02/12/17 17:00 64 27 168/96 (120) 02/12/17 16:21 54 8 159/86 (110) 02/12/17 16:00 98.4 56 22 172/87 (115) 02/12/17 14:00 58 21 159/88 (111) 02/12/17 13:00 58 15 137/66 (89) 02/12/17 12:00 98.1 62 30 165/95 (118) 02/12/17 11:01 54 19 170/89 (116) 02/12/17 11:00 54 18 180/94 (122) I/O 02/12/17 02/12/17 02/12/17 02/13/17 02/13/17 02/13/17 07:00 15:00 23:00 07:00 15:00 23:00 Intake Total 2130 ml 300 ml 2433 ml 500 ml Output Total 1500 ml 625 ml Balance 630 ml 300 ml 1808 ml 500 ml Intake Oral 960 ml 960 ml IV Total 1170 ml 300 ml 1473 ml 500 ml Output Urine Total 1500 ml 625 ml # Bowel Movements 0 Result Diagram: 02/13/17 0500 02/13/17 0500 Objective Remarks GENERAL: Well-nourished, well-developed patient. SKIN: Warm and dry. HEAD: Normocephalic. EYES: No scleral icterus. No injection or drainage. NECK: Supple, trachea midline. No JVD or lymphadenopathy. CARDIOVASCULAR: Regular rate and rhythm without murmurs, gallops, or rubs. RESPIRATORY: Breath sounds equal bilaterally. No accessory muscle use. GASTROINTESTINAL: Abdomen soft, +ttp epigastrium without guarding, nondistended. EXTREMITIES: No cyanosis, or edema. NEUROLOGICAL: Awake, alert, and oriented x 3. Non-focal. no tremors. A/P Problem List: (1) Hypertensive urgency ICD Code: I16.0 - Hypertensive urgency (2) Thrombocytopenia ICD Code: D69.6 - Thrombocytopenia, unspecified (3) Pancreatitis ICD Code: K85.90 - Acute pancreatitis without necrosis or infection, unspecified Status: Acute (4) Diabetes mellitus ICD Code: E11.9 - Diabetes mellitus Status: Chronic Assessment and Plan -Pancreatitis, likely due to alcohol. Abdominal CT scan showed a hypodense liver consistent with hepatocellular disease however pancreas appeared normal. Lipase 1470, now wnl today. Triglycerides not elevated. Tolerating heart healthy diet, with PO lortab for pain. pt advised on ETOH cessation. -Chest pain - most likely related to the pancreatitis, however patient does have risk factors and states he has had intermittent c/p over past 6 months, last neg stress test 6 months ago. will proceed with nuclear stress test. 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 platelets stable. -Alcoholism. Patient states that he has only been drinking for the past 6 years. Patient was counseled on alcohol cessation. no signs of withdrawal. cont Ativan as needed for withdrawal symptoms. -Hypertensive urgency. s/p Cardene drip. started on HCTZ 25 mg and lisionpril 20 mg daily, and continued on his home metoprolol. pt reports SBP normally 140- 150 in outpatient setting. -Hypomagnesemia and hypokalemia - resolved after repletion. -Type 2 diabetes. continue sliding scale insulin with Accu-Chek. -DVT prophylaxis with SCDs. Discharge Planning DC home if stress test negative. Problem Qualifiers (1) Pancreatitis: Qualified Codes: K85.90 - Acute pancreatitis without necrosis or infection, unspecified (2) Diabetes mellitus: Alecia Ríos MD Feb 13, 2017 10:07
[2017-02-13 12:00] VITALS: BP 190/110; PULSE 58; RESP 20; TEMP 96.6; O2SAT 100
[2017-02-13] MEDS ORDERED: NYSTATIN 100,000 UNIT/GM CREAM 15 GM TOPICAL ONE (12:00)
[2017-02-13] MEDS ORDERED: REGADENOSON INJ 0.4 MG/5 ML SYR IV ONE (13:21)
--- NOTE | 2017-02-13 15:07 | RADRPT ---
EXAM DATE/TIME: 02/13/2017 13:24 [place] COMPARISON: No previous studies available for comparison. INDICATIONS : Chest pain radiating to the interscapular area with vomiting. Angina. DOSE: 26.6 mCi Tc99m Myoview at stress. 8.7 mCi Tc99m Myoview at rest. 0.4 mg Lexiscan STRESS SYMPTOMS: Lightheadedness and headache. EJECTION FRACTION: 58% MEDICAL HISTORY : Hypertension. Diabetes mellitus type 2. SURGICAL HISTORY : Left hip. ENCOUNTER: Initial ACUITY: 4 - 6 months PAIN SCALE: 5/10 LOCATION: chest TECHNIQUE: The patient underwent pharmacologic stress with infusion of prescribed dose. Continuous ECG tracing was monitored during stress. Gated SPECT imaging was performed after stress and conventional SPECT i maging was performed at rest. The examination was performed on a SPECT/CT scanner, both attenuation and non-corrected datasets were reviewed. FINDINGS: DISTRIBUTION: The maximum perfused segment at stress is in the anterior wall. There is a summed stress score of zer o. PERFUSION STUDY: The pattern of perfusion at stress is within normal limits. GATED STUDY: There is intact wall motion and thickening without hypokinetic or dyskinetic segments. CONCLUSION: 1. Normal wall motion and calculated ejection fraction. 2. No fixed or reversible wall defects to suggest ischemia or infarction. RISK CATEGORY: Low (<1% Annual Mortality Rate) Basil Ross MD on February 13, 2017 at 15:04 Board Certified Radiologist. This report was verified electronically.
[2017-02-13 16:00] VITALS: BP 180/100; PULSE 73; RESP 21; TEMP 98.8; O2SAT 98; O2SAT 99
[2017-02-13 20:00] VITALS: BP 160/86; PULSE 80; RESP 18; TEMP 97; O2SAT 98
[2017-02-13] MEDS: ACETAMINOPHEN 325 MG TAB PO PRN (20:14)
[2017-02-13] MEDS: TEMAZEPAM 15 MG CAP PO PRN ×2 (21:56→22:10)
[2017-02-13] MEDS: NYSTATIN 100,000 UNIT/GM CREAM 15 GM TOPICAL SCH (22:14)
[2017-02-14] VITALS (10 sets, daily range): BP systolic 160–212; BP diastolic 92–113; PULSE 64–85; RESP 18–20; TEMP 96.8–98.9; O2SAT 96–99
[2017-02-14] MEDS: hydrALAZINE HCL 20 MG/ML VIAL IV PRN (00:03)
[2017-02-14] MEDS: ACETAMINOPHEN/HYDROcodone 325 MG/10 MG TAB PO PRN ×4 (05:24→22:56)
[2017-02-14] MEDS: MORPHINE SULFATE 4 MG/ML INJ IV PUSH PRN ×2 (05:28→08:21)
[2017-02-14] MEDS: INSULIN ASPART SUPPLEMENTAL SCALE SQ SCH ×4 (08:00→21:00)
[2017-02-14] MEDS: FOLIC ACID 1 MG TAB PO SCH (08:11)
[2017-02-14] MEDS: MULTIVITAMINS/MINERALS THERAPEUTIC TAB PO SCH (08:11)
[2017-02-14] MEDS: METOPROLOL TARTRATE 100 MG TAB PO SCH ×2 (08:11→19:45)
[2017-02-14] MEDS: THIAMINE HCL 100 MG TAB PO SCH (08:11)
[2017-02-14] MEDS: MAGNESIUM OXIDE 400 MG TAB PO SCH ×2 (08:11→21:36)
[2017-02-14] MEDS: DOCUSATE SODIUM 50 MG/SENNA 8.6 MG TAB PO SCH ×2 (08:11→21:36)
[2017-02-14] MEDS: HYDROCHLOROTHIAZIDE 25 MG TAB PO SCH (08:11)
[2017-02-14] MEDS: SODIUM CHLORIDE 0.9% FLUSH 10 ML FLUSH IV FLUSH SCH ×2 (08:12→21:37)
[2017-02-14] MEDS: NYSTATIN 100,000 UNIT/GM CREAM 15 GM TOPICAL SCH ×2 (08:12→21:00)
[2017-02-14] MEDS: LISINOPRIL 20 MG TAB PO SCH ×2 (08:14→21:36)
[2017-02-14] MEDS: SODIUM CHLOR 0.9% 1000 ML INJ 1,000 ML IV SCH (08:14)
[2017-02-14] MEDS ORDERED: HYDR-3799 PO (08:52)
[2017-02-14] MEDS ORDERED: LISI-515 PO (08:52)
[2017-02-14] MEDS ORDERED: DILTIAZEM HCL 60 MG TAB PO ONE ×3 (09:15→17:00)
[2017-02-14] MEDS ORDERED: DILTIAZEM HCL 60 MG TAB PO PRN (09:15)
--- NOTE | 2017-02-14 09:21 | HHI.PR ---
Subjective Remarks Patient continues to have epigastric and chest pain which is more on the left side of the abdomen. He does not understand why. Patient was educated again that it is due to the pancreatitis and may take several weeks to resolve and that he needs to eat low-fat diet and avoid alcohol. Patient was reassured that his stress test was negative. Patient is also complaining of a severe headache from the hydralazine and states "I can't live like this." Nurses noticed that his fingers appear somewhat puffy. Blood pressure still elevated. Objective Vitals Vital Signs Date Time Temp Pulse Resp B/P (MAP) Pulse Ox O2 Delivery O2 Flow Rate FiO2 02/14/17 09:10 190/100 (130) 02/14/17 05:18 98.9 84 20 166/95 (118) 98 02/14/17 00:00 96.8 72 20 176/92 (120) 98 02/13/17 20:00 97.0 80 18 160/86 (110) 98 02/13/17 16:00 98.8 73 21 180/100 (126) 98 02/13/17 12:00 96.6 58 20 190/110 (136) 100 I/O 02/13/17 02/13/17 02/13/17 02/14/17 02/14/17 02/14/17 07:00 15:00 23:00 07:00 15:00 23:00 Intake Total 500 ml 686 ml 1050 ml Balance 500 ml 686 ml 1050 ml Intake Oral 400 ml IV Total 500 ml 286 ml 1050 ml # Voids 4 # Bowel Movements 0 Result Diagram: 02/13/17 0500 02/13/17 0500 Objective Remarks GENERAL: Well-nourished, well-developed patient. SKIN: Warm and dry. HEAD: Normocephalic. EYES: No scleral icterus. No injection or drainage. NECK: Supple, trachea midline. No JVD or lymphadenopathy. CARDIOVASCULAR: Regular rate and rhythm without murmurs, gallops, or rubs. RESPIRATORY: Breath sounds equal bilaterally. No accessory muscle use. GASTROINTESTINAL: Abdomen soft, nontender, nondistended. EXTREMITIES: Trace edema of the hands and legs. NEUROLOGICAL: Awake, alert, and oriented x 3. Non-focal. no tremors. A/P Problem List: (1) Hypertensive urgency ICD Code: I16.0 - Hypertensive urgency (2) Thrombocytopenia ICD Code: D69.6 - Thrombocytopenia, unspecified (3) Pancreatitis ICD Code: K85.90 - Acute pancreatitis without necrosis or infection, unspecified Status: Acute (4) Diabetes mellitus ICD Code: E11.9 - Diabetes mellitus Status: Chronic Assessment and Plan -Pancreatitis, likely due to alcohol. Abdominal CT scan showed a hypodense liver consistent with hepatocellular disease however pancreas appeared normal. Lipase 1470 on admission but trended down to normal the next day. Triglycerides not elevated. Tolerating heart healthy diet, with PO lortab for pain. pt advised on ETOH cessation and a low-fat diet. -Chest pain -secondary to the pancreatitis, nuclear stress test on 02/13 was negative for ischemia. 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 platelets stable. -Alcoholism. Patient states that he has only been drinking for the past 6 years. Patient was counseled on alcohol cessation. no signs of withdrawal. cont Ativan as needed for withdrawal symptoms. -Hypertensive urgency. s/p Cardene drip. Blood pressure is still elevated despite being on HCTZ 25 mg daily and lisinopril 20 mg by mouth twice a day. Patient has side effects to clonidine and now hydralazine. We'll give him by mouth Cardizem 60 mg now and 4 times a day when necessary systolic blood pressure greater than 160. Systolic blood pressure currently 190 heart rate 80. Lasix 40 mg IV 1 for the blood pressure and mild pedal edema, and DC IV fluids. -Hypomagnesemia and hypokalemia - resolved after repletion. -Type 2 diabetes. continue sliding scale insulin with Accu-Chek. -DVT prophylaxis with SCDs. Discharge Planning Possible discharge home this afternoon if blood pressure improved. Patient instructed to check his blood pressure twice a day at home and to follow -up with his primary care physician early next week. Problem Qualifiers (1) Pancreatitis: Qualified Codes: K85.90 - Acute pancreatitis without necrosis or infection, unspecified (2) Diabetes mellitus: Alecia Ríos MD Feb 14, 2017 09:21
[2017-02-14] MEDS ORDERED: FUROSEMIDE 40 MG/4 ML VIAL IV PUSH ONE (09:30)
[2017-02-14] MEDS ORDERED: ACETAMIN 325 MG/BUTALBITAL 50 MG/CAFFEINE 40 MG TAB PO ONE (09:30)
[2017-02-14] MEDS ORDERED: DILT60TA33 PO (11:21)
--- NOTE | 2017-02-14 11:41 | HHI.DS ---
Discharge Summary Admission Date Feb 11, 2017 at 09:30 Admitting Diagnosis pancreatitis, hypertension (1) Hypertensive urgency ICD Code: I16.0 - Hypertensive urgency (2) Thrombocytopenia ICD Code: D69.6 - Thrombocytopenia, unspecified (3) Pancreatitis ICD Code: K85.90 - Acute pancreatitis without necrosis or infection, unspecified Status: Acute (4) Diabetes mellitus ICD Code: E11.9 - Diabetes mellitus Status: Chronic Brief History - From Admission This is a 52 year-old male with past medical history of hypertension who presents to the ER complaining of a 24-36 hour of upper abdominal pain/ chest pain radiating to his interscapular area. The pain started as a dull ache and gradually got more severe. No radiation. He did have one episode of emesis in the emergency department however has not had any other emesis. No palliative or provocative factors. The patient had negative troponin and EKG in the emergency department and pain did not respond to nitroglycerin. However lipase was elevated. Abdominal CT scan showed a hypodense liver consistent with hepatocellular disease however pancreas appeared normal. The patient endorses that he will drink up to a 12 pack of [place] light. He denies any history of withdrawal symptoms. His blood pressure was also markedly elevated in the emergency department requiring multiple doses of IV labetalol and finally a Cardene drip was started. Blood pressure is now 167/86. He states normally his systolic blood pressure ranges from 140-150. His primary care physician is Dr. Hinojosa. The patient complains of headache after the nitroglycerin. CBC/BMP: 02/13/17 0500 02/13/17 0500 Significant Findings Laboratory Tests Test 02/11/17 14:00 02/12/17 04:25 02/12/17 14:08 02/13/17 05:00 Red Blood Count 3.77 MIL/MM3 (4.50-5.90) 3.77 MIL/MM3 (4.50-5.90) Hematocrit 37.5 % (39.0-51.0) 37.6 % (39.0-51.0) Mean Corpuscular Hemoglobin 34.8 PG (27.0-34.0) 35.3 PG (27.0-34.0) Red Cell Distribution Width 11.4 % (11.6-17.2) Platelet Count 64 TH/MM3 (150-450) 67 TH/MM3 (150-450) Monocytes (%) (Auto) 9.0 % (0.0-8.0) 10.6 % (0.0-8.0) Eosinophils (%) (Auto) 4.4 % (0.0-4.0) 4.7 % (0.0-4.0) Platelet Estimate LOW (NORMAL) LOW (NORMAL) Random Glucose 156 MG/DL (74-106) 234 MG/DL (74-106) 140 MG/DL (74-106) Calcium Level 7.7 MG/DL (8.5-10.1) 8.0 MG/DL (8.5-10.1) 8.2 MG/DL (8.5-10.1) Magnesium Level 1.2 MG/DL (1.5-2.5) Potassium Level 2.7 MEQ/L (3.5-5.1) Sodium Level 135 MEQ/L (136-145) Estimat Glomerular Filtration Rate 78 ML/MIN (>89) White Blood Count 3.9 TH/MM3 (4.0-11.0) Basophils (%) (Auto) 2.5 % (0.0-2.0) PE at Discharge GENERAL: Well-nourished, well-developed patient. SKIN: Warm and dry. HEAD: Normocephalic. EYES: No scleral icterus. No injection or drainage. NECK: Supple, trachea midline. No JVD or lymphadenopathy. CARDIOVASCULAR: Regular rate and rhythm without murmurs, gallops, or rubs. RESPIRATORY: Breath sounds equal bilaterally. No accessory muscle use. GASTROINTESTINAL: Abdomen soft, nontender, nondistended. EXTREMITIES: Trace edema of the hands and legs. NEUROLOGICAL: Awake, alert, and oriented x 3. Non-focal. no tremors. Pt Condition on Discharge: Stable Discharge Disposition: Discharge Home Discharge Instructions DIET: Follow Instructions for: Heart Healthy Diet Additional Diet Instructions: low fat, no alcoholic beverages Activities you can perform: Regular-No Restrictions Alecia Ríos MD Feb 14, 2017 11:41
[2017-02-14] MEDS ORDERED: ENALAPRILAT 1.25 MG/ML VIAL IV PUSH PRN (17:00)
[2017-02-14] MEDS: DILTIAZEM HCL 60 MG TAB PO SCH (19:46)
[2017-02-14] MEDS: ACETAMIN 325 MG/BUTALBITAL 50 MG/CAFFEINE 40 MG TAB PO PRN (19:46)
[2017-02-14] MEDS ORDERED: hydrALAZINE HCL 10 MG TAB PO ONE (22:45)
[2017-02-15] VITALS (8 sets, daily range): BP systolic 172–209; BP diastolic 98–126; PULSE 67–80; RESP 16–20; TEMP 97.4–98.1; O2SAT 97–100
[2017-02-15] MEDS: TEMAZEPAM 15 MG CAP PO PRN ×2 (00:02→21:00)
[2017-02-15] MEDS: DILTIAZEM HCL 60 MG TAB PO SCH ×2 (03:10→08:07)
[2017-02-15] MEDS: ACETAMIN 325 MG/BUTALBITAL 50 MG/CAFFEINE 40 MG TAB PO PRN ×2 (03:15→12:51)
[2017-02-15] MEDS ORDERED: hydrALAZINE HCL 10 MG TAB PO ONE (04:00)
[2017-02-15] MEDS: ACETAMINOPHEN/HYDROcodone 325 MG/10 MG TAB PO PRN ×2 (07:46→16:21)
[2017-02-15] MEDS: DOCUSATE SODIUM 50 MG/SENNA 8.6 MG TAB PO SCH ×2 (08:06→20:51)
[2017-02-15] MEDS: LISINOPRIL 20 MG TAB PO SCH ×2 (08:06→20:51)
[2017-02-15] MEDS: METOPROLOL TARTRATE 100 MG TAB PO SCH (08:06)
[2017-02-15] MEDS: MAGNESIUM OXIDE 400 MG TAB PO SCH ×2 (08:07→20:51)
[2017-02-15] MEDS: FOLIC ACID 1 MG TAB PO SCH (08:08)
[2017-02-15] MEDS: THIAMINE HCL 100 MG TAB PO SCH (08:08)
[2017-02-15] MEDS: HYDROCHLOROTHIAZIDE 25 MG TAB PO SCH (08:08)
[2017-02-15] MEDS: MULTIVITAMINS/MINERALS THERAPEUTIC TAB PO SCH (08:08)
[2017-02-15] MEDS: INSULIN ASPART SUPPLEMENTAL SCALE SQ SCH ×4 (08:09→21:00)
[2017-02-15] MEDS: NYSTATIN 100,000 UNIT/GM CREAM 15 GM TOPICAL SCH ×2 (08:10→21:00)
[2017-02-15] MEDS: SODIUM CHLORIDE 0.9% FLUSH 10 ML FLUSH IV FLUSH SCH ×2 (08:11→20:50)
[2017-02-15] MEDS: NIFEdipine 60 MG SUSTAINED RELEASE TAB PO SCH ×2 (10:37→20:50)
--- NOTE | 2017-02-15 12:04 | HHI.PR ---
Subjective Remarks Blood pressure remained elevated throughout the night. Headache resolved with the Fioricet however return after he received hydralazine by mouth. Blood pressure improved this morning. A review of his medical record shows that he has had systolic blood pressures in the 200s going back as far as 2012. Objective Vitals Vital Signs Date Time Temp Pulse Resp B/P (MAP) Pulse Ox O2 Delivery O2 Flow Rate FiO2 02/15/17 09:25 174/102 (126) 02/15/17 08:57 98.1 67 18 194/115 (141) 99 02/15/17 05:40 73 20 172/102 (125) 97 02/15/17 03:08 97.6 72 18 180/112 (134) 98 02/14/17 22:31 71 20 196/106 (136) 97 02/14/17 21:36 20 02/14/17 21:34 64 20 212/110 (144) 99 02/14/17 19:34 20 02/14/17 19:14 97.6 75 20 192/104 (133) 98 209/111 (143) 02/14/17 16:00 98.4 77 18 206/110 (142) 97 02/14/17 14:27 210/110 (143) I/O 02/14/17 02/14/17 02/14/17 02/15/17 02/15/17 02/15/17 06:59 14:59 22:59 06:59 14:59 22:59 Intake Total 1050 ml 1675 ml 500 ml Balance 1050 ml 1675 ml 500 ml Intake Oral 675 ml 500 ml IV Total 1050 ml 1000 ml # Voids 4 5 Result Diagram: 02/13/17 0500 02/13/17 0500 Objective Remarks GENERAL: Well-nourished, well-developed patient. SKIN: Warm and dry. HEAD: Normocephalic. EYES: No scleral icterus. No injection or drainage. NECK: Supple, trachea midline. No JVD or lymphadenopathy. CARDIOVASCULAR: Regular rate and rhythm without murmurs, gallops, or rubs. RESPIRATORY: Breath sounds equal bilaterally. No accessory muscle use. GASTROINTESTINAL: Abdomen soft, nontender, nondistended. EXTREMITIES: Trace edema of the hands and legs. NEUROLOGICAL: Awake, alert, and oriented x 3. Non-focal. no tremors. A/P Problem List: (1) Hypertensive urgency ICD Code: I16.0 - Hypertensive urgency (2) Thrombocytopenia ICD Code: D69.6 - Thrombocytopenia, unspecified (3) Pancreatitis ICD Code: K85.90 - Acute pancreatitis without necrosis or infection, unspecified Status: Acute (4) Diabetes mellitus ICD Code: E11.9 - Diabetes mellitus Status: Chronic Assessment and Plan -Pancreatitis, likely due to alcohol. Abdominal CT scan showed a hypodense liver consistent with hepatocellular disease however pancreas appeared normal. Lipase 1470 on admission but trended down to normal the next day. Triglycerides not elevated. Tolerating heart healthy diet, with PO lortab for pain. pt advised on ETOH cessation and a low-fat diet. -Chest pain -secondary to the pancreatitis, nuclear stress test on 02/13 was negative for ischemia. 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 platelets stable. -Alcoholism. Patient states that he has only been drinking for the past 6 years. Patient was counseled on alcohol cessation. no signs of withdrawal. cont Ativan as needed for withdrawal symptoms. -Hypertensive urgency with hypertension stage II. s/p Cardene drip. Blood pressure is still elevated despite being on HCTZ 25 mg daily and lisinopril 20 mg by mouth twice a day. Will DC metoprolol. Start Procardia 60 mg by mouth twice a day. Increase lisinopril to 20 mg by mouth twice a day. Patient has side effects to clonidine (sensation of throat closing) and hydralazine ( headache). Use Vasotec IV when necessary for systolic blood pressure greater than 160. -Hypomagnesemia and hypokalemia - resolved after repletion. -Type 2 diabetes. continue sliding scale insulin with Accu-Chek. -DVT prophylaxis with SCDs. Discharge Planning Discharge home tomorrow if blood pressure improved. Problem Qualifiers (1) Pancreatitis: Qualified Codes: K85.90 - Acute pancreatitis without necrosis or infection, unspecified (2) Diabetes mellitus: Alecia Ríos MD Feb 15, 2017 12:04
[2017-02-15 12:22] LABS: BICARBONATE 36.1 MEQ/L (21.0-32.0); POTASSIUM 4.1 MEQ/L (3.5-5.1)
[2017-02-15] MEDS: ENALAPRILAT 1.25 MG/ML VIAL IV PUSH PRN (17:49)
[2017-02-15] MEDS ORDERED: guanFACINE HCL 1 MG TAB PO ONE (18:00)
[2017-02-15] MEDS: SPIRONOLACTONE 25 MG TAB PO SCH (20:51)
[2017-02-15] MEDS: guanFACINE HCL 1 MG TAB PO SCH (20:57)
[2017-02-16] VITALS (7 sets, daily range): BP systolic 146–190; BP diastolic 86–110; PULSE 72–80; RESP 16–18; TEMP 96.7–97.1; O2SAT 96–99
[2017-02-16] MEDS: NIFEdipine 60 MG SUSTAINED RELEASE TAB PO SCH ×2 (08:10→21:47)
[2017-02-16] MEDS: MULTIVITAMINS/MINERALS THERAPEUTIC TAB PO SCH (08:10)
[2017-02-16] MEDS: HYDROCHLOROTHIAZIDE 25 MG TAB PO SCH (08:10)
[2017-02-16] MEDS: ACETAMINOPHEN/HYDROcodone 325 MG/10 MG TAB PO PRN ×3 (08:10→18:29)
[2017-02-16] MEDS: MAGNESIUM OXIDE 400 MG TAB PO SCH ×2 (08:11→21:47)
[2017-02-16] MEDS: THIAMINE HCL 100 MG TAB PO SCH (08:11)
[2017-02-16] MEDS: DOCUSATE SODIUM 50 MG/SENNA 8.6 MG TAB PO SCH ×2 (08:11→21:00)
[2017-02-16] MEDS: LISINOPRIL 20 MG TAB PO SCH ×2 (08:13→21:47)
[2017-02-16] MEDS: INSULIN ASPART SUPPLEMENTAL SCALE SQ SCH ×4 (08:13→21:00)
[2017-02-16] MEDS: FOLIC ACID 1 MG TAB PO SCH (08:13)
[2017-02-16] MEDS: SODIUM CHLORIDE 0.9% FLUSH 10 ML FLUSH IV FLUSH SCH ×2 (08:15→21:00)
[2017-02-16] MEDS: NYSTATIN 100,000 UNIT/GM CREAM 15 GM TOPICAL SCH ×2 (08:16→21:00)
[2017-02-16] MEDS ORDERED: LISI-515 PO (12:08)
[2017-02-16] MEDS ORDERED: GUAN1TAB PO ×2 (12:08→12:14)
[2017-02-16] MEDS ORDERED: NIFE60TA8 PO (12:08)
[2017-02-16] MEDS ORDERED: SPIR25 PO (12:08)
[2017-02-16] MEDS ORDERED: guanFACINE HCL 1 MG TAB PO ONE (12:35)
--- NOTE | 2017-02-16 13:12 | HHI.PR ---
Subjective Remarks Blood pressure improved this morning, however at noon was 180/100. Patient still c/o severe frontal headache. Mild c/p/epigastric pain. Objective Vitals Vital Signs Date Time Temp Pulse Resp B/P (MAP) Pulse Ox O2 Delivery O2 Flow Rate FiO2 02/16/17 12:00 97.0 80 18 180/100 (126) 99 02/16/17 08:00 97.1 75 18 158/98 (118) 96 Manual Cuff/Auscultation 02/16/17 04:00 152/88 (109) 02/16/17 00:00 146/86 (106) 02/15/17 20:00 97.4 72 18 182/98 (126) 99 02/15/17 17:39 97.6 80 20 209/126 (153) 100 02/15/17 13:34 97.4 76 16 204/117 (146) 100 I/O 02/15/17 02/15/17 02/15/17 02/16/17 02/16/17 02/16/17 07:00 15:00 23:00 07:00 15:00 23:00 Intake Total 500 ml Balance 500 ml Intake Oral 500 ml # Voids 5 Result Diagram: 02/13/17 0500 02/15/17 1045 Objective Remarks GENERAL: Well-nourished, well-developed patient. SKIN: Warm and dry. HEAD: Normocephalic. EYES: No scleral icterus. No injection or drainage. NECK: Supple, trachea midline. No JVD or lymphadenopathy. CARDIOVASCULAR: Regular rate and rhythm without murmurs, gallops, or rubs. RESPIRATORY: Breath sounds equal bilaterally. No accessory muscle use. GASTROINTESTINAL: Abdomen soft, nontender, nondistended. EXTREMITIES: Trace edema of the hands and legs. NEUROLOGICAL: Awake, alert, and oriented x 3. Non-focal. no tremors. A/P Problem List: (1) Hypertensive urgency ICD Code: I16.0 - Hypertensive urgency (2) Thrombocytopenia ICD Code: D69.6 - Thrombocytopenia, unspecified (3) Pancreatitis ICD Code: K85.90 - Acute pancreatitis without necrosis or infection, unspecified Status: Acute (4) Diabetes mellitus ICD Code: E11.9 - Diabetes mellitus Status: Chronic (5) Resistant hypertension ICD Code: I10 - Essential (primary) hypertension Assessment and Plan -Pancreatitis, likely due to alcohol. Abdominal CT scan showed a hypodense liver consistent with hepatocellular disease however pancreas appeared normal. Lipase 1470 on admission but trended down to normal the next day. Triglycerides not elevated. Tolerating heart healthy diet, with PO lortab for pain. pt advised on ETOH cessation and a low-fat diet. -Chest pain -secondary to the pancreatitis, nuclear stress test on 02/13 was negative for ischemia. 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 platelets stable. -Alcoholism. Patient states that he has only been drinking for the past 6 years. Patient was counseled on alcohol cessation. no signs of withdrawal. cont Ativan as needed for withdrawal symptoms. -Hypertensive urgency with resistant hypertension. s/p Cardene drip. Patient previously on metoprolol, hctz and lisionpril as outpatient. Blood pressure is still elevated despite being on HCTZ 25 mg daily and lisinopril 40 mg by mouth twice a day, procardia xl 60 mg BID, spironolactone 25 mg HS, and guanfacine 1mg PO HS. Will increase guanfacine to BID dosing. Blood pressure was improved this morning. Patient has side effects to clonidine (sensation of throat closing) and hydralazine (headache). Use Vasotec IV when necessary for systolic blood pressure greater than 160. Will check for secondary causes of HTN , renin aldosterone, TSH, plasma catecholamines and metanephrines ordered. -Headache - has been persistent for [address] -Hypomagnesemia and hypokalemia - resolved after repletion. -Type 2 diabetes. resume metformin and glyburide. continue sliding scale insulin with Accu-Chek. -DVT prophylaxis with SCDs. Discharge Planning Discharge home when blood pressure improved. Problem Qualifiers (1) Pancreatitis: Qualified Codes: K85.90 - Acute pancreatitis without necrosis or infection, unspecified (2) Diabetes mellitus: Alecia Ríos MD Feb 16, 2017 13:12
--- NOTE | 2017-02-16 19:00 | RADRPT ---
EXAM DATE/TIME: 02/16/2017 18:52 [facility] COMPARISON: CT BRAIN W/O CONTRAST, December 16, 2010, 9:42. INDICATIONS : Cephalgia. RADIATION DOSE: 60.51 CTDIvol (mGy) MEDICAL HISTORY : Hypertension. Diabetes. SURGICAL HISTORY : Orthopedic surgery. ENCOUNTER: Initial ACUITY: 1 day PAIN SCALE: 3/10 LOCATION: cranial TECHNIQUE: Multiple contiguous axial images were obtained of the head. Using automated exposure control and adj ustment of the mA and/or kV according to patient size, radiation dose was kept as low as reasonably a chievable to obtain optimal diagnostic quality images. DICOM format image data is available electro nically for review and comparison. FINDINGS: CEREBRUM: The ventricles are normal for age. No evidence of midline shift, mass lesion, hemorrhage or acute in farction. No extra-axial fluid collections are seen. POSTERIOR FOSSA: The cerebellum and brainstem are intact. The 4th ventricle is midline. The cerebellopontine angle i s unremarkable. EXTRACRANIAL: The visualized portion of the orbits is intact. SKULL: The calvaria is intact. No evidence of skull fracture. CONCLUSION: Normal examination. Alonso Sawant MD on February 16, 2017 at 18:58 Board Certified Radiologist. This report was verified electronically.
[2017-02-16] MEDS: guanFACINE HCL 1 MG TAB PO SCH (21:00)
[2017-02-16] MEDS ORDERED: GLYBURIDE METFORMIN PO SCH (21:00)
[2017-02-16] MEDS: SPIRONOLACTONE 25 MG TAB PO SCH (21:47)
[2017-02-16] MEDS: metFORMIN HCL 500 MG TAB PO SCH (21:48)
[2017-02-16] MEDS: glyBURIDE 2.5 MG TAB PO SCH (21:48)
[2017-02-16] MEDS: TEMAZEPAM 15 MG CAP PO PRN (21:54)
[2017-02-17 00:25] VITALS: BP 160/98; PULSE 74; RESP 16; TEMP 97.7; O2SAT 97
[2017-02-17 06:40] VITALS: BP 170/96
[2017-02-17 08:00] VITALS: BP 170/98; PULSE 79; RESP 18; TEMP 97.7; O2SAT 95
[2017-02-17] MEDS: INSULIN ASPART SUPPLEMENTAL SCALE SQ SCH ×4 (08:00→21:00)
[2017-02-17] MEDS: NYSTATIN 100,000 UNIT/GM CREAM 15 GM TOPICAL SCH ×2 (09:00→21:20)
[2017-02-17] MEDS ORDERED: METOPROLOL TARTRATE 25 MG TAB PO ONE (09:45)
[2017-02-17] MEDS ORDERED: ALUMINUM/MAGNESIUM/SIMETH 30 ML CUP PO ONE (09:45)
[2017-02-17] MEDS ORDERED: ONDANSETRON HCL 4 MG/2 ML VIAL IV PUSH ONE (09:45)
[2017-02-17] MEDS ORDERED: PANTOPRAZOLE SOD 40 MG DELAYED RELEASE TAB PO ONE (09:45)
[2017-02-17] MEDS: THIAMINE HCL 100 MG TAB PO SCH (09:57)
[2017-02-17] MEDS: DOCUSATE SODIUM 50 MG/SENNA 8.6 MG TAB PO SCH ×2 (09:57→21:17)
[2017-02-17] MEDS: NIFEdipine 60 MG SUSTAINED RELEASE TAB PO SCH ×2 (09:57→21:14)
[2017-02-17] MEDS: metFORMIN HCL 500 MG TAB PO SCH ×2 (09:57→21:14)
[2017-02-17] MEDS: glyBURIDE 2.5 MG TAB PO SCH ×2 (09:57→21:15)
[2017-02-17] MEDS: SODIUM CHLORIDE 0.9% FLUSH 10 ML FLUSH IV FLUSH SCH ×2 (09:57→21:14)
[2017-02-17] MEDS: MAGNESIUM OXIDE 400 MG TAB PO SCH (09:58)
[2017-02-17] MEDS: ACETAMINOPHEN/HYDROcodone 325 MG/10 MG TAB PO PRN ×3 (09:58→23:10)
[2017-02-17] MEDS: LISINOPRIL 20 MG TAB PO SCH ×2 (09:58→21:16)
[2017-02-17] MEDS: LORazepam 1 MG TAB PO PRN (09:58)
[2017-02-17] MEDS: HYDROCHLOROTHIAZIDE 25 MG TAB PO SCH (09:59)
[2017-02-17] MEDS ORDERED: METOPROLOL TARTRATE 100 MG TAB PO ONE (10:00)
[2017-02-17] MEDS: ONDANSETRON HCL 4 MG/2 ML VIAL IVP PRN (10:04)
[2017-02-17] MEDS: ENALAPRILAT 1.25 MG/ML VIAL IV PUSH PRN ×2 (10:04→17:07)
[2017-02-17] MEDS: MORPHINE SULFATE 4 MG/ML INJ IV PUSH PRN (11:27)
[2017-02-17 12:00] VITALS: BP 168/98; PULSE 81; RESP 17; TEMP 97.5; O2SAT 96
[2017-02-17] MEDS: ACETAMINOPHEN/HYDROcodone 325 MG/5 MG TAB PO PRN (12:55)
--- NOTE | 2017-02-17 14:56 | HHI.PR ---
Subjective Remarks Hypertensive urgency is improving. Nausea and vomiting present this morning. Patient is not feeling well when seen. Objective Vital Signs Date Time Temp Pulse Resp B/P (MAP) Pulse Ox O2 Delivery O2 Flow Rate FiO2 02/17/17 14:24 18 02/17/17 12:00 97.5 81 17 168/98 (121) 96 02/17/17 11:36 18 02/17/17 08:00 97.7 79 18 170/98 (122) 95 02/17/17 06:40 170/96 (120) 02/17/17 04:27 02/17/17 00:25 97.7 74 16 160/98 (118) 97 02/16/17 21:36 78 16 190/110 (136) 98 02/16/17 16:00 96.7 72 18 190/110 (136) 99 I/O 02/16/17 02/16/17 02/16/17 02/17/17 02/17/17 02/17/17 07:00 15:00 23:00 07:00 15:00 23:00 Intake Total 1100 ml Balance 1100 ml Intake Oral 1100 ml # Voids 5 # Bowel Movements 0 Result Diagram: 02/13/17 0500 02/15/17 1045 Objective Remarks GENERAL: NAD, A&Ox3 HEAD: Normocephalic. NECK: Supple, trachea midline. No lymphadenopathy. EYES: No scleral icterus. No injection or drainage. CARDIOVASCULAR: Regular rate and rhythm without murmurs, gallops, or rubs. RESPIRATORY: Breath sounds equal bilaterally. No accessory muscle use. GASTROINTESTINAL: Abdomen soft, non-tender, nondistended. MUSCULOSKELETAL: No cyanosis, or edema. SKIN: Warm and dry. NEURO: No focal neurological deficitis. A/P Problem List: (1) Resistant hypertension ICD Code: I10 - Essential (primary) hypertension (2) Diabetes mellitus ICD Code: E11.9 - Diabetes mellitus Status: Chronic (3) Hypertensive urgency ICD Code: I16.0 - Hypertensive urgency (4) Pancreatitis ICD Code: K85.90 - Acute pancreatitis without necrosis or infection, unspecified Status: Acute (5) Hypertension ICD Code: I10 - Hypertension Status: Acute Assessment and Plan Assessment and Plan 52-year-old male admitted secondary to pancreatitis and hypertensive urgency Hypertensive urgency Improvement through time Suspected GI related viral etiology may exacerbate blood pressures Continue Procardia Continue lisinopril Continue metoprolol Continue as needed IV enalapril Continue as needed clonidine Thyroid studies are within normal limits Catecholamine and Metanephrine studies are pending Acute pancreatitis Etiology may be viral Patient denies heavy alcohol use Lipase has normalized Clinically some of his symptoms (nausea, vomiting, atypical chest pain) may still be related to healing pancreatitis Negative stress test from 02/13/17 Leukopenia Pancytopenia Follow CBC Headache Persistent CT of brain within normal limits Etiology may be related to meningeal irritation from hypertensive urgency Etiology may also be related to virus Continue as needed pain treatments Hypomagnesemia Hypokalemia Follow and replace as needed Diabetes mellitus type 2 Follow blood sugars Insulin sliding scale Diabetic diet Continue metformin Continue glyburide DVT prophylaxis SCDs Problem Qualifiers (1) Diabetes mellitus: (2) Pancreatitis: Qualified Codes: K85.90 - Acute pancreatitis without necrosis or infection, unspecified Christofer Chandler MD Feb 17, 2017 14:55
[2017-02-17 16:00] VITALS: BP 163/85; PULSE 78; RESP 18; TEMP 97.8; O2SAT 96
[2017-02-17 20:00] VITALS: BP 150/90; PULSE 71; RESP 16; TEMP 98.8; O2SAT 97
[2017-02-17] MEDS: guanFACINE HCL 1 MG TAB PO SCH (21:00)
[2017-02-17] MEDS ORDERED: METOPROLOL TARTRATE 25 MG TAB PO SCH (21:00)
[2017-02-17] MEDS: SPIRONOLACTONE 25 MG TAB PO SCH (21:16)
[2017-02-17] MEDS: METOPROLOL TARTRATE 100 MG TAB PO SCH (21:16)
[2017-02-18] VITALS: BP 140/90; PULSE 70; RESP 16; TEMP 98.6; O2SAT 97
[2017-02-18 04:00] VITALS: BP 140/90; PULSE 70; RESP 16; TEMP 98.6; O2SAT 97
[2017-02-18] MEDS: ACETAMINOPHEN 325 MG TAB PO PRN (05:13)
[2017-02-18 06:30] LABS: AUTOMATED NEUTROPHIL # 1.9 TH/MM3 (1.8-7.7); BASOPHIL % 0.8 % (0.0-2.0); EOSINOPHIL # 0.1 TH/MM3 (0-0.4); EOSINOPHIL % 2.9 % (0.0-4.0); LYMPH % 33.3 % (9.0-44.0); LYMPHOCYTE # 1.4 TH/MM3 (1.0-4.8); MEAN CELL VOLUME 101.1 FL (80.0-100.0); MEAN CORPUSCULAR HEMOGLOBIN 33.8 PG (27.0-34.0); MEAN CORPUSCULAR HGB CONC 33.5 % (32.0-36.0); MONO % 16.1 % (0.0-8.0); NEUT % 46.9 % (16.0-70.0); PLATELET COUNT 70 TH/MM3 (150-450); RED BLOOD COUNT 3.86 MIL/MM3 (4.50-5.90); WHITE BLOOD COUNT 4.1 TH/MM3 (4.0-11.0)
[2017-02-18 06:41] LABS: CHLORIDE 95 MEQ/L (98-107); POTASSIUM 3.9 MEQ/L (3.5-5.1); SODIUM (NA) 135 MEQ/L (136-145)
[2017-02-18 06:47] LABS: ANION GAP 5 MEQ/L (5-15); BICARBONATE 34.9 MEQ/L (21.0-32.0); MAGNESIUM 1.9 MG/DL (1.5-2.5)
[2017-02-18 06:48] LABS: BLOOD UREA NITROGEN 20 MG/DL (7-18)
[2017-02-18 06:50] LABS: ALT (GPT) 55 U/L (12-78); AST (GOT) 56 U/L (15-37); GLOMERULAR FILTRATION RATE 70 ML/MIN (>89)
[2017-02-18 06:51] LABS: TOTAL BILIRUBIN ADULT 1.5 MG/DL (0.2-1.0)
[2017-02-18 06:52] LABS: HEMO FLAGS AUTO DIFF
[2017-02-18 06:53] LABS: ALKALINE PHOSPHATASE 118 U/L (45-117)
[2017-02-18 07:27] LABS: PLATELET ESTIMATE SMEAR LOW (NORMAL); PLATELET MORPHOLOGY NORMAL (NORMAL); SCAN/DIFF AUTO DIFF CONFIRMED
[2017-02-18] MEDS: metFORMIN HCL 500 MG TAB PO SCH ×2 (08:51→20:16)
[2017-02-18] MEDS: glyBURIDE 2.5 MG TAB PO SCH ×2 (08:52→20:13)
[2017-02-18] MEDS: DOCUSATE SODIUM 50 MG/SENNA 8.6 MG TAB PO SCH ×2 (08:52→20:14)
[2017-02-18] MEDS: THIAMINE HCL 100 MG TAB PO SCH (08:52)
[2017-02-18] MEDS: SODIUM CHLORIDE 0.9% FLUSH 10 ML FLUSH IV FLUSH SCH ×2 (08:53→20:13)
[2017-02-18] MEDS: HYDROCHLOROTHIAZIDE 25 MG TAB PO SCH (09:05)
[2017-02-18] MEDS: METOPROLOL TARTRATE 100 MG TAB PO SCH ×2 (09:05→20:13)
[2017-02-18] MEDS: NYSTATIN 100,000 UNIT/GM CREAM 15 GM TOPICAL SCH ×2 (09:07→20:24)
[2017-02-18] MEDS: LISINOPRIL 20 MG TAB PO SCH ×2 (09:07→20:14)
[2017-02-18] MEDS: NIFEdipine 60 MG SUSTAINED RELEASE TAB PO SCH ×2 (09:07→20:15)
[2017-02-18] MEDS: INSULIN ASPART SUPPLEMENTAL SCALE SQ SCH ×3 (09:08→20:12)
[2017-02-18 09:13] VITALS: BP 155/93; PULSE 82; RESP 18
[2017-02-18] MEDS: ACETAMINOPHEN/HYDROcodone 325 MG/5 MG TAB PO PRN ×2 (10:23→20:30)
[2017-02-18 12:38] VITALS: BP 165/110; PULSE 75; RESP 18; TEMP 98.3; O2SAT 97
[2017-02-18] MEDS: ENALAPRILAT 1.25 MG/ML VIAL IV PUSH PRN (12:43)
[2017-02-18] MEDS ORDERED: cloNIDine HCL 0.1 MG TAB PO PRN (15:15)
[2017-02-18] MEDS: ACETAMINOPHEN/HYDROcodone 325 MG/10 MG TAB PO PRN (15:47)
--- NOTE | 2017-02-18 17:23 | HHI.PR ---
Subjective Remarks This morning blood pressures were improved but blood pressures remain labile. Lowest blood pressures were 140 systolic. Highest blood pressures been over 200 systolic. Patient gets symptoms with high blood pressures, including headache, visual changes, and tingling. Objective Vital Signs Date Time Temp Pulse Resp B/P (MAP) Pulse Ox O2 Delivery O2 Flow Rate FiO2 02/18/17 16:47 18 02/18/17 12:38 98.3 75 18 165/110 (128) 97 02/18/17 11:23 18 02/18/17 09:13 82 18 155/93 (113) 02/18/17 04:00 98.6 70 16 140/90 (107) 97 Automatic Cuff 02/18/17 00:00 98.6 70 16 140/90 (107) 97 02/17/17 20:00 98.8 71 16 150/90 (110) 97 I/O 02/17/17 02/17/17 02/17/17 02/18/17 02/18/17 02/18/17 07:00 15:00 23:00 07:00 15:00 23:00 Intake Total 520 ml 200 ml Balance 520 ml 200 ml Intake Oral 520 ml 200 ml # Voids 1 Result Diagram: 02/18/17 0437 02/18/17 0437 Objective Remarks GENERAL: NAD, A&Ox3 HEAD: Normocephalic. NECK: Supple, trachea midline. No lymphadenopathy. EYES: No scleral icterus. No injection or drainage. CARDIOVASCULAR: Regular rate and rhythm without murmurs, gallops, or rubs. RESPIRATORY: Breath sounds equal bilaterally. No accessory muscle use. GASTROINTESTINAL: Abdomen soft, non-tender, nondistended. MUSCULOSKELETAL: No cyanosis, or edema. SKIN: Warm and dry. NEURO: No focal neurological deficitis. A/P Problem List: (1) Resistant hypertension ICD Code: I10 - Essential (primary) hypertension (2) Diabetes mellitus ICD Code: E11.9 - Diabetes mellitus Status: Chronic (3) Hypertensive urgency ICD Code: I16.0 - Hypertensive urgency (4) Pancreatitis ICD Code: K85.90 - Acute pancreatitis without necrosis or infection, unspecified Status: Acute (5) Hypertension ICD Code: I10 - Hypertension Status: Acute Assessment and Plan Assessment and Plan 52-year-old male admitted secondary to pancreatitis and hypertensive urgency. Additional hypotensive treatments started (hydralazine) due to resistance to current treatments. Blood pressures will have to be better optimize prior to discharge. Hypertensive urgency Improvement through time Suspected GI related viral etiology may exacerbate blood pressures Continue Procardia Continue lisinopril Continue metoprolol Continue as needed IV enalapril Continue as needed clonidine Hydralazine Thyroid studies are within normal limits Catecholamine and Metanephrine studies are pending Acute pancreatitis Etiology may be viral Patient denies heavy alcohol use Lipase has normalized Clinically some of his symptoms (nausea, vomiting, atypical chest pain) may still be related to healing pancreatitis Negative stress test from 02/13/17 Leukopenia Pancytopenia Follow CBC Headache Persistent CT of brain within normal limits Etiology may be related to meningeal irritation from hypertensive urgency Etiology may also be related to virus Continue as needed pain treatments Hypomagnesemia Hypokalemia Follow and replace as needed Diabetes mellitus type 2 Follow blood sugars Insulin sliding scale Diabetic diet Continue metformin Continue glyburide DVT prophylaxis SCDs Problem Qualifiers (1) Diabetes mellitus: (2) Pancreatitis: Qualified Codes: K85.90 - Acute pancreatitis without necrosis or infection, unspecified Christofer Chandler MD Feb 18, 2017 17:23
[2017-02-18 17:29] VITALS: BP 188/106; RESP 18; O2SAT 99
[2017-02-18] MEDS ORDERED: hydrALAZINE HCL 50 MG TAB PO ONE (17:30)
[2017-02-18] MEDS ORDERED: INSULIN ASPART 1,000 UNITS/10 ML VIAL SQ ONE (18:30)
[2017-02-18 20:00] VITALS: BP 150/104; PULSE 68; RESP 18; TEMP 98.4
[2017-02-18] MEDS: ENALAPRILAT 2.5 MG/2 ML VIAL IV PUSH PRN (20:13)
[2017-02-18] MEDS: SPIRONOLACTONE 25 MG TAB PO SCH (20:14)
[2017-02-18] MEDS: MAGNESIUM HYDROXIDE SUSP 30 ML CUP PO PRN (20:26)
[2017-02-18] MEDS: hydrALAZINE HCL 50 MG TAB PO SCH (23:04)
[2017-02-18] MEDS: TEMAZEPAM 15 MG CAP PO PRN (23:04)
[2017-02-19] VITALS (9 sets, daily range): BP systolic 115–192; BP diastolic 76–120; PULSE 63–112; RESP 18–21; TEMP 96.5–99.2; O2SAT 90–100
[2017-02-19] MEDS: ACETAMINOPHEN/HYDROcodone 325 MG/10 MG TAB PO PRN ×5 (00:58→20:58)
[2017-02-19] MEDS: SODIUM CHLORIDE 0.9% FLUSH 10 ML FLUSH IV FLUSH PRN ×2 (03:35→06:57)
[2017-02-19] MEDS: ENALAPRILAT 2.5 MG/2 ML VIAL IV PUSH PRN ×2 (03:35→16:15)
[2017-02-19] MEDS: ONDANSETRON HCL 4 MG/2 ML VIAL IVP PRN (06:55)
[2017-02-19] MEDS: hydrALAZINE HCL 50 MG TAB PO SCH ×3 (06:55→22:07)
[2017-02-19] MEDS: THIAMINE HCL 100 MG TAB PO SCH (08:20)
[2017-02-19] MEDS: DOCUSATE SODIUM 50 MG/SENNA 8.6 MG TAB PO SCH ×2 (08:20→20:56)
[2017-02-19] MEDS: metFORMIN HCL 500 MG TAB PO SCH ×2 (08:21→20:56)
[2017-02-19] MEDS: NIFEdipine 60 MG SUSTAINED RELEASE TAB PO SCH ×2 (08:21→20:57)
[2017-02-19] MEDS: LISINOPRIL 20 MG TAB PO SCH ×2 (08:21→20:57)
[2017-02-19] MEDS: METOPROLOL TARTRATE 100 MG TAB PO SCH ×2 (08:22→20:57)
[2017-02-19] MEDS: glyBURIDE 2.5 MG TAB PO SCH ×2 (08:22→20:56)
[2017-02-19] MEDS: INSULIN ASPART SUPPLEMENTAL SCALE SQ SCH ×4 (08:32→20:56)
[2017-02-19] MEDS: HYDROCHLOROTHIAZIDE 25 MG TAB PO SCH (08:32)
[2017-02-19] MEDS: SODIUM CHLORIDE 0.9% FLUSH 10 ML FLUSH IV FLUSH SCH ×2 (08:33→20:56)
[2017-02-19] MEDS: NYSTATIN 100,000 UNIT/GM CREAM 15 GM TOPICAL SCH ×2 (08:33→20:57)
[2017-02-19] MEDS ORDERED: HYDR-3800 PO (11:16)
[2017-02-19] MEDS ORDERED: CARD360C PO (11:21)
[2017-02-19] MEDS: SPIRONOLACTONE 25 MG TAB PO SCH (20:58)
[2017-02-19] MEDS: MAGNESIUM HYDROXIDE SUSP 30 ML CUP PO PRN (20:59)
[2017-02-19] MEDS: TEMAZEPAM 15 MG CAP PO PRN (22:07)
[2017-02-20] VITALS (10 sets, daily range): BP systolic 142–210; BP diastolic 82–110; PULSE 59–84; RESP 18–20; TEMP 96.8–98.6; O2SAT 89–100
[2017-02-20] MEDS: hydrALAZINE HCL 50 MG TAB PO SCH ×3 (06:21→20:16)
[2017-02-20] MEDS: ACETAMINOPHEN/HYDROcodone 325 MG/10 MG TAB PO PRN ×2 (07:27→12:18)
[2017-02-20] MEDS: INSULIN ASPART SUPPLEMENTAL SCALE SQ SCH ×4 (07:32→20:25)
--- NOTE | 2017-02-20 08:37 | HHI.PR ---
Subjective Remarks This note is documentation for the visit on 02/20/17: Blood pressures are trending over 190 systolic today. Further adjustments in blood pressure medications are needed. Better control be needed prior to discharge. Objective Vital Signs Date Time Temp Pulse Resp B/P (MAP) Pulse Ox O2 Delivery O2 Flow Rate FiO2 02/20/17 08:27 18 02/20/17 08:20 70 18 178/110 (132) 99 02/20/17 07:49 96.9 59 20 190/102 (131) 100 02/20/17 04:00 98.6 64 170/82 (111) 02/20/17 00:00 97.7 68 20 162/86 (111) 96 02/19/17 20:00 97.9 67 20 184/102 (129) 98 02/19/17 20:00 () 02/19/17 16:03 182/120 (140) 02/19/17 16:00 75 18 182/120 (140) 100 02/19/17 14:33 170/92 (118) 02/19/17 12:00 97.0 64 20 186/110 (135) 97 02/19/17 12:00 192/110 (137) I/O 02/19/17 02/19/17 02/19/17 02/20/17 02/20/17 02/20/17 07:00 15:00 23:00 07:00 15:00 23:00 Intake Total 960 ml 1040 ml Balance 960 ml 1040 ml Intake Oral 960 ml 1040 ml # Voids 6 6 # Bowel Movements 0 0 Result Diagram: 02/18/17 0437 02/18/17 1745 Objective Remarks GENERAL: NAD, A&Ox3 HEAD: Normocephalic. NECK: Supple, trachea midline. No lymphadenopathy. EYES: No scleral icterus. No injection or drainage. CARDIOVASCULAR: Regular rate and rhythm without murmurs, gallops, or rubs. RESPIRATORY: Breath sounds equal bilaterally. No accessory muscle use. GASTROINTESTINAL: Abdomen soft, non-tender, nondistended. MUSCULOSKELETAL: No cyanosis, or edema. SKIN: Warm and dry. NEURO: No focal neurological deficitis. A/P Problem List: (1) Resistant hypertension ICD Code: I10 - Essential (primary) hypertension (2) Diabetes mellitus ICD Code: E11.9 - Diabetes mellitus Status: Chronic (3) Hypertensive urgency ICD Code: I16.0 - Hypertensive urgency (4) Pancreatitis ICD Code: K85.90 - Acute pancreatitis without necrosis or infection, unspecified Status: Acute (5) Hypertension ICD Code: I10 - Hypertension Status: Acute Assessment and Plan This note is documentation for the visit on 02/20/17: Assessment and Plan 52-year-old male admitted secondary to pancreatitis and hypertensive urgency. Blood pressures not yet controlled, maximum blood pressure today is greater than 1 90 mmHg systolic. Nifedipine changed to higher dosing of diltiazem. Blood pressures will have to be better optimize prior to discharge. Hypertensive urgency Improvement through time Suspected GI related viral etiology may exacerbate blood pressures Continue Procardia Continue lisinopril Continue metoprolol Continue as needed IV enalapril Continue as needed clonidine Hydralazine Thyroid studies are within normal limits Catecholamine and Metanephrine studies are pending Acute pancreatitis Etiology may be viral Patient denies heavy alcohol use Lipase has normalized Clinically some of his symptoms (nausea, vomiting, atypical chest pain) may still be related to healing pancreatitis Negative stress test from 02/13/17 Leukopenia Pancytopenia Follow CBC Headache Persistent CT of brain within normal limits Etiology may be related to meningeal irritation from hypertensive urgency Etiology may also be related to virus Continue as needed pain treatments Hypomagnesemia Hypokalemia Follow and replace as needed Diabetes mellitus type 2 Follow blood sugars Insulin sliding scale Diabetic diet Continue metformin Continue glyburide DVT prophylaxis SCDs Problem Qualifiers (1) Diabetes mellitus: (2) Pancreatitis: Qualified Codes: K85.90 - Acute pancreatitis without necrosis or infection, unspecified Christofer Chandler MD Feb 20, 2017 08:37
[2017-02-20] MEDS: LISINOPRIL 20 MG TAB PO SCH ×2 (08:41→20:16)
[2017-02-20] MEDS: SODIUM CHLORIDE 0.9% FLUSH 10 ML FLUSH IV FLUSH SCH ×2 (08:41→20:15)
[2017-02-20] MEDS: DILTIAZEM-CD 180 MG CAP ER PO SCH (08:41)
[2017-02-20] MEDS: glyBURIDE 2.5 MG TAB PO SCH ×2 (08:42→20:15)
[2017-02-20] MEDS: HYDROCHLOROTHIAZIDE 25 MG TAB PO SCH (08:42)
[2017-02-20] MEDS: METOPROLOL TARTRATE 100 MG TAB PO SCH ×2 (08:42→20:16)
[2017-02-20] MEDS: THIAMINE HCL 100 MG TAB PO SCH (08:42)
[2017-02-20] MEDS: metFORMIN HCL 500 MG TAB PO SCH ×2 (08:42→20:15)
[2017-02-20] MEDS: DOCUSATE SODIUM 50 MG/SENNA 8.6 MG TAB PO SCH ×2 (08:43→20:16)
[2017-02-20] MEDS: NYSTATIN 100,000 UNIT/GM CREAM 15 GM TOPICAL SCH ×2 (08:49→20:18)
[2017-02-20] MEDS ORDERED: IOHEXOL 350 MG/ML 10 ML VIAL (for RAD DIAG) IVCONTRAST ONE (10:46)
--- NOTE | 2017-02-20 11:42 | RADRPT ---
EXAM DATE/TIME: 02/20/2017 10:31 [facility] COMPARISON: No previous studies available for comparison. INDICATIONS : Renal disease, evaluate for renal artery stenosis. IV CONTRAST: 75 cc Omnipaque 350 (iohexol) IV RADIATION DOSE: 18.36 CTDIvol (mGy) MEDICAL HISTORY : Pancreatitis. Diabetes mellitus type 2. Hypertension. SURGICAL HISTORY : None. ENCOUNTER: Initial ACUITY: 4 - 6 days PAIN SCALE: 0/10 LOCATION: Abdomen. TECHNIQUE: Volumetric scanning was performed using a multi-row detector CT scanner. The data was post processed with a variety of visualization algorithms including full volume maximum intensity projection, multi -planar sliding thin slab reformation, curved planar reformation, and surface rendering techniques. Using automated exposure control and adjustment of the mA and/or kV according to patient size, radiat ion dose was kept as low as reasonably achievable to obtain optimal diagnostic quality images. DICOM format image data is available electronically for review and comparison. FINDINGS: AORTA/INFLOW: The abdominal aorta is normal in caliber and course. No significant atherosclerotic plaque observed. The aorta and visualized portions of the inflow vessels are patent. 2 renal arteries are seen supplyi ng each kidney. Each has a main renal artery and small lower pole accessory renal artery. These are p atent. The celiac, SMA, and SKYLAR are patent. OTHER STRUCTURES: Old left posterior 10th and 11th through fractures with lack of union. CONCLUSION: 1. Patent main renal arteries and lower pole accessory renal arteries bilaterally. 2. Old left posterior 10th and 11th rib fractures with lack of union. Rod Jones Jr., MD on February 20, 2017 at 11:37 Board Certified Radiologist. This report was verified electronically.
--- NOTE | 2017-02-20 14:13 | HHI.PR ---
Subjective Remarks Blood pressures in the 190s systolic this morning. Changes and calcium amos have been made. CTA obtained to study for renal artery stenosis. No evidence of renal artery stenosis. Objective Vital Signs Date Time Temp Pulse Resp B/P (MAP) Pulse Ox O2 Delivery O2 Flow Rate FiO2 02/20/17 12:00 97.8 68 18 142/98 (113) 99 02/20/17 08:27 18 02/20/17 08:20 70 18 178/110 (132) 99 02/20/17 07:49 96.9 59 20 190/102 (131) 100 02/20/17 04:00 98.6 64 170/82 (111) 02/20/17 00:00 97.7 68 20 162/86 (111) 96 02/19/17 20:00 97.9 67 20 184/102 (129) 98 02/19/17 20:00 () 02/19/17 16:03 182/120 (140) 02/19/17 16:00 75 18 182/120 (140) 100 02/19/17 14:33 170/92 (118) I/O 02/19/17 02/19/17 02/19/17 02/20/17 02/20/17 02/20/17 06:59 14:59 22:59 06:59 14:59 22:59 Intake Total 960 ml 1040 ml 1080 ml Balance 960 ml 1040 ml 1080 ml Intake Oral 960 ml 1040 ml 1080 ml # Voids 6 6 5 # Bowel Movements 0 0 Result Diagram: 02/18/17 0437 02/18/17 7834 Objective Remarks GENERAL: NAD, A&Ox3 HEAD: Normocephalic. NECK: Supple, trachea midline. No lymphadenopathy. EYES: No scleral icterus. No injection or drainage. CARDIOVASCULAR: Regular rate and rhythm without murmurs, gallops, or rubs. RESPIRATORY: Breath sounds equal bilaterally. No accessory muscle use. GASTROINTESTINAL: Abdomen soft, non-tender, nondistended. MUSCULOSKELETAL: No cyanosis, or edema. SKIN: Warm and dry. NEURO: No focal neurological deficitis. A/P Problem List: (1) Resistant hypertension ICD Code: I10 - Essential (primary) hypertension (2) Diabetes mellitus ICD Code: E11.9 - Diabetes mellitus Status: Chronic (3) Hypertensive urgency ICD Code: I16.0 - Hypertensive urgency (4) Pancreatitis ICD Code: K85.90 - Acute pancreatitis without necrosis or infection, unspecified Status: Acute (5) Hypertension ICD Code: I10 - Hypertension Status: Acute Assessment and Plan Assessment and Plan 52-year-old male admitted secondary to pancreatitis and hypertensive urgency. Continue to work on blood pressure control. Blood pressure adjustments made. Once blood pressures remain consistently 1 70 mmHg systolic or less, we'll consider discharge. Hypertensive urgency Improvement through time Suspected GI related viral etiology may exacerbate blood pressures Continue Procardia Continue lisinopril Continue metoprolol Continue as needed IV enalapril Continue as needed clonidine Hydralazine Thyroid studies are within normal limits Catecholamine and Metanephrine studies are pending Acute pancreatitis Etiology may be viral Patient denies heavy alcohol use Lipase has normalized Clinically some of his symptoms (nausea, vomiting, atypical chest pain) may still be related to healing pancreatitis Negative stress test from 02/13/17 Leukopenia Pancytopenia Follow CBC Headache Persistent CT of brain within normal limits Etiology may be related to meningeal irritation from hypertensive urgency Etiology may also be related to virus Continue as needed pain treatments Hypomagnesemia Hypokalemia Follow and replace as needed Diabetes mellitus type 2 Follow blood sugars Insulin sliding scale Diabetic diet Continue metformin Continue glyburide DVT prophylaxis SCDs Problem Qualifiers (1) Diabetes mellitus: (2) Pancreatitis: Qualified Codes: K85.90 - Acute pancreatitis without necrosis or infection, unspecified Christofer Chandler MD Feb 20, 2017 14:13
[2017-02-20] MEDS ORDERED: DOXAZOSIN MESYLATE 4 MG TAB PO ONE (15:00)
[2017-02-20] MEDS ORDERED: oxyCODONE/ACETAMINOPHEN 5 MG/325 MG TAB PO PRN (15:00)
[2017-02-20] MEDS: oxyCODONE/ACETAMINOPHEN 10 MG/325 MG TAB PO PRN ×2 (15:26→20:15)
[2017-02-20] MEDS: MUPIROCIN 2% OINT 22 GM TUBE TOPICAL SCH ×2 (15:28→20:17)
[2017-02-20] MEDS ORDERED: MAGNESIUM CITRATE SOLN 300 ML BTL PO ONE ×2 (16:00→19:00)
[2017-02-20] MEDS: ALPRAZolam 0.5 MG TAB PO PRN (16:17)
[2017-02-20] MEDS: SPIRONOLACTONE 25 MG TAB PO SCH (20:16)
[2017-02-20] MEDS: ENALAPRILAT 2.5 MG/2 ML VIAL IV PUSH PRN (22:01)
[2017-02-20] MEDS ORDERED: INSULIN HUMAN REGULAR 1,000 UNITS/10 ML VIAL IV PUSH ONE (22:45)
[2017-02-20] MEDS: TEMAZEPAM 15 MG CAP PO PRN (22:58)
[2017-02-21] MEDS: oxyCODONE/ACETAMINOPHEN 10 MG/325 MG TAB PO PRN ×5 (00:53→22:15)
[2017-02-21 04:00] VITALS: BP 178/84; PULSE 62; RESP 18; TEMP 96.3; O2SAT 96
[2017-02-21] MEDS: SODIUM CHLORIDE 0.9% FLUSH 10 ML FLUSH IV FLUSH PRN (05:14)
[2017-02-21] MEDS: ENALAPRILAT 2.5 MG/2 ML VIAL IV PUSH PRN (05:14)
[2017-02-21] MEDS: hydrALAZINE HCL 50 MG TAB PO SCH ×3 (05:14→23:55)
[2017-02-21 08:00] VITALS: BP 140/76; PULSE 56; RESP 16; TEMP 98; O2SAT 99
[2017-02-21] MEDS: INSULIN ASPART SUPPLEMENTAL SCALE SQ SCH ×4 (08:40→21:03)
[2017-02-21] MEDS: glyBURIDE 2.5 MG TAB PO SCH (08:41)
[2017-02-21] MEDS: HYDROCHLOROTHIAZIDE 25 MG TAB PO SCH (08:41)
[2017-02-21] MEDS: metFORMIN HCL 500 MG TAB PO SCH (08:41)
[2017-02-21] MEDS: THIAMINE HCL 100 MG TAB PO SCH (08:42)
[2017-02-21] MEDS: LISINOPRIL 20 MG TAB PO SCH (08:42)
[2017-02-21] MEDS: METOPROLOL TARTRATE 100 MG TAB PO SCH ×2 (08:42→21:03)
[2017-02-21] MEDS: DILTIAZEM-CD 180 MG CAP ER PO SCH (08:42)
[2017-02-21] MEDS: SODIUM CHLORIDE 0.9% FLUSH 10 ML FLUSH IV FLUSH SCH ×2 (08:43→21:02)
[2017-02-21] MEDS: MUPIROCIN 2% OINT 22 GM TUBE TOPICAL SCH ×2 (08:49→21:00)
[2017-02-21] MEDS: DOCUSATE SODIUM 50 MG/SENNA 8.6 MG TAB PO SCH ×2 (08:55→21:02)
[2017-02-21] MEDS ORDERED: DOXAZOSIN MESYLATE 4 MG TAB PO SCH (09:00)
[2017-02-21] MEDS: NYSTATIN 100,000 UNIT/GM CREAM 15 GM TOPICAL SCH ×2 (09:00→21:00)
[2017-02-21 12:00] VITALS: BP 200/110; PULSE 72; RESP 18; TEMP 98.2; O2SAT 98
--- NOTE | 2017-02-21 12:26 | HHI.PR ---
Subjective Remarks Reported some headache, no blurry vision Complaint of skin itching in his inguinal area, and skin break in his right foot Objective Vitals Vital Signs Date Time Temp Pulse Resp B/P (MAP) Pulse Ox O2 Delivery O2 Flow Rate FiO2 02/21/17 08:00 98.0 56 16 140/76 (97) 99 02/21/17 04:00 96.3 62 18 178/84 (115) 96 02/20/17 23:55 96.8 61 20 180/100 (126) 100 02/20/17 21:15 18 02/20/17 20:00 97.3 84 18 182/98 (126) 97 02/20/17 17:04 78 20 170/104 (126) 99 02/20/17 16:00 98.6 64 20 210/110 (143) 89 02/20/17 14:50 64 20 192/110 (137) 99 02/20/17 13:18 16 I/O 02/20/17 02/20/17 02/20/17 02/21/17 02/21/17 02/21/17 07:00 15:00 23:00 07:00 15:00 23:00 Intake Total 1080 ml 250 ml 120 ml 400 ml Balance 1080 ml 250 ml 120 ml 400 ml Intake Oral 1080 ml 250 ml 120 ml 400 ml # Voids 5 4 2 3 # Bowel Movements 0 4 Result Diagram: 02/18/17 0437 02/18/17 1745 Objective Remarks GENERAL: This is a well-nourished, well-developed patient, in no apparent distress. SKIN: No rashes, warm and dry , erythematous itchy skin in the inguinal fold, and skin break with an estimated skin in the right foot between the big toe on the first digit HEAD: Atraumatic. Normocephalic. EYES: Pupils equal round and reactive. Extraocular motions intact. No scleral icterus. ENT: Nose without bleeding, or drainage, Airway patent. NECK: Trachea midline. Supple CARDIOVASCULAR: Regular rate and rhythm without murmurs, gallops, or rubs. RESPIRATORY: Fair air entry bilaterally. No wheezes, rales, or rhonchi. GASTROINTESTINAL: Abdomen soft, non-tender, nondistended. Positive bowel sounds MUSCULOSKELETAL: Extremities without clubbing, cyanosis, or edema. Pedal pulses appreciated NEUROLOGICAL: Awake and alert. Moves all extremity. Normal speech.no focal neurological deficit A/P Problem List: (1) Hypertensive urgency ICD Code: I16.0 - Hypertensive urgency (2) Thrombocytopenia ICD Code: D69.6 - Thrombocytopenia, unspecified (3) Pancreatitis ICD Code: K85.90 - Acute pancreatitis without necrosis or infection, unspecified Status: Acute (4) Diabetes mellitus ICD Code: E11.9 - Diabetes mellitus Status: Chronic (5) Resistant hypertension ICD Code: I10 - Essential (primary) hypertension Assessment and Plan Hypertensive urgency with uncontrolled pressure refractory to multiple agents Uncontrolled diabetes mellitus Acute pancreatitis Thrombocytopenia Alcohol abuse possibly due to alcoholism Tinea crura was an pedis DVT prophylaxis Plan: Blood pressure still not controlled on multiple agents, consulted nephrology, on Cardizem, hydralazine, clonidine, Lopressor, spironolactone, hydrochlorothiazide. Stop metformin, check hemoglobin A1c, start on Levemir and upgrade insulin sliding scale Clotrimazole for tinea cruris and pedis Prophylaxis with SCD and mobilization Problem Qualifiers (1) Pancreatitis: Qualified Codes: K85.90 - Acute pancreatitis without necrosis or infection, unspecified (2) Diabetes mellitus: Angelika Denson MD Feb 21, 2017 12:26
[2017-02-21] MEDS: INSULIN DETEMIR 100 UNITS/ML VIAL SQ SCH ×2 (13:29→21:04)
[2017-02-21 13:30] VITALS: BP 182/110; PULSE 84; RESP 20; O2SAT 96
[2017-02-21] MEDS: CLOTRIMAZOLE 1% CREAM 15 GM TOPICAL SCH ×2 (13:30→21:00)
--- NOTE | 2017-02-21 13:50 | PD.CONS ---
HPI Service Nephrology Consult Requested By Dr. Denson Reason for Consult Refractory hypertension Primary Care Physician Pal Hinojosa M.D. History of Present Illness This is a 52 y/o male. He was admitted on 02/11 for chest pain and abdominal pain. Nuclear stress test was negative for ischemia. It was thought to be due to pancreatitis as he drinks occasionally but had elevated lipase levels. PMH of HTN and DM II, he is on metoprolol 100 mg BID, Norvasc, and HCTZ at home, with resulting BP running around 140/90 at home. The medical team has had difficulty controlling his blood pressure. He was on cardene gtt in ICU initially, later converted to oral meds with PRN IV vasotec used to treat breakthrough hypertension. CTA was negative for JANN. He was given Xanax to treat for possible anxiety but it did not help and the patient asks for it not to be given to him again. Today his blood pressure is 182/110, and he is reporting occasional headaches. His regimen has been changed to include hydralazine, doxazosin, Cardizem, metoprolol, lisinopril, HCTZ, and Aldactone. He was given a lot of IVF while in the ICU, reports edema to hands/legs, and had to be diuresed after. Labs to look for abnormal catecholamine levels have been drawn. He is a full code this admission. (Keerthi Pacheco) Review of Systems Constitutional: DENIES: Fatigue Eyes: DENIES: Blurred vision, Photosensitivity, Double Vision Cardiovascular: COMPLAINS OF: Chest pain Neurologic: DENIES: Abnormal gait, Localized weakness Psychiatric: DENIES: Confusion (Keerthi Pacheco) Past Family Social History Allergies: Coded Allergies: clonidine (Verified Allergy, Severe, Swelling, 02/18/17) PT STATES HE HAD SHORTNESS OF BREATH AND FLUSHED FACE WHEN, and feeling of swelling in the throat. Past Medical History HTN DM II Past Surgical History L hip Hamstring repair Reported Medications Temazepam 15 Mg Cap 15 Mg PO HS PRN Metoprolol Tartrate 100 Mg Tab 100 Mg PO BID Glyburide-Metformin 2.5-500 Mg Tab 1 Tab PO BID Take with a meal Active Ordered Medications Current Medications Medications (Trade) Dose Ordered Sig/Zhao Route Start Time Stop Time Status Last Admin (NS Flush) 2 ml UNSCH PRN IV FLUSH 02/11/17 09:30 02/21/17 05:14 (NS Flush) 2 ml BID IV FLUSH 02/11/17 21:00 02/21/17 08:43 (Zofran Inj) 4 mg Q6H PRN IVP 02/11/17 11:00 02/19/17 06:55 (Reglan Inj) 5 mg Q6H PRN IV PUSH 02/11/17 11:00 (Tylenol) 650 mg Q6H PRN PO 02/11/17 10:00 02/18/17 05:13 (Narcan Inj) 0.4 mg UNSCH PRN IV PUSH 02/11/17 09:30 (Sherrill-Colace) 1 tab BID PO 02/11/17 21:00 02/20/17 20:16 (Milk Of Magnesia Liq) 30 ml Q12H PRN PO 02/11/17 10:00 02/19/17 20:59 (Senokot) 17.2 mg Q12H PRN PO 02/11/17 10:00 02/13/17 08:26 (Dulcolax Supp) 10 mg DAILY PRN RECTAL 02/11/17 10:00 (Lactulose Liq) 30 ml DAILY PRN PO 02/11/17 10:00 (Vitamin B1) 100 mg DAILY PO 02/12/17 09:00 02/21/17 08:42 (Restoril) 15 mg HS PRN PO 02/11/17 10:00 02/20/17 22:58 (D50w (Vial) Inj) 50 ml UNSCH PRN IV PUSH 02/11/17 09:45 (Glucagon Inj) 1 mg UNSCH PRN OTHER 02/11/17 09:45 (Hydrodiuril) 25 mg DAILY PO 02/13/17 09:00 02/21/17 08:41 (Mycostatin Cream) 1 applic Q12HR TOPICAL 02/13/17 21:00 02/20/17 20:18 (Prinivil) 40 mg BID PO 02/15/17 21:00 02/21/17 08:42 (Aldactone) 25 mg HS PO 02/15/17 21:00 02/20/17 20:16 (Lopressor) 100 mg Q12HR PO 02/17/17 21:00 02/21/17 08:42 (Vasotec Inj) 2.5 mg Q6H PRN IV PUSH 02/18/17 17:30 02/21/17 05:14 (NovoLOG SUPPLEMENTAL SCALE) 1 ACHS SLIDING SCALE SQ 02/18/17 21:00 02/21/17 08:40 (Cardizem Cd) 360 mg DAILY PO 02/20/17 09:00 02/21/17 08:42 (Bactroban 2% Oint) 1 applic Q12HR TOPICAL 02/20/17 12:30 02/21/17 08:49 (Xanax) 0.5 mg Q6HR PRN PO 02/20/17 15:00 02/20/17 16:17 (Percocet 5-325 Mg) 1 tab Q4H PRN PO 02/20/17 15:00 (Percocet 10-325 Mg) 1 tab Q4H PRN PO 02/20/17 15:00 02/21/17 11:54 (Cardura) 4 mg DAILY PO 02/21/17 09:00 02/21/17 08:43 (Levemir Inj) 5 units HS SQ 02/21/17 11:15 02/21/17 13:29 (Lotrimin 1% Cream) 1 applic Q12HR TOPICAL 02/21/17 12:30 02/21/17 13:30 (Apresoline) 50 mg Q6HR PO 02/21/17 18:00 Family History No hx of renal disorders Dad had SCLC Mother was obese,still living Social History Drinks occasionally No hx of smoking 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, 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 , 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 Full code (Keerthi Pacheco) Physical Exam Vital Signs Vital Signs Date Time Temp Pulse Resp B/P (MAP) Pulse Ox O2 Delivery O2 Flow Rate FiO2 02/21/17 13:30 84 20 182/110 (134) 96 02/21/17 12:54 18 02/21/17 12:00 98.2 72 18 200/110 (140) 98 02/21/17 08:00 98.0 56 16 140/76 (97) 99 02/21/17 04:00 96.3 62 18 178/84 (115) 96 02/20/17 23:55 96.8 61 20 180/100 (126) 100 02/20/17 20:00 97.3 84 18 182/98 (126) 97 02/20/17 17:04 78 20 170/104 (126) 99 02/20/17 16:00 98.6 64 20 210/110 (143) 89 02/20/17 14:50 64 20 192/110 (137) 99 Physical Exam Middle aged male, average build Awake, oriented, follows commands S1/S2, RRR, left chest tender around axillary region Lungs clear in all tristan Abdomen soft, non tender Ext: no edema He is ambulatory Laboratory Laboratory Tests Test 02/21/17 12:15 (Keerthi Pacheco) Result Diagram: 02/18/17 0437 02/18/17 1745 Imaging Last Impressions Abdomen CTA 02/20/17 0000 Signed Impressions: Service Date/Time: February 10:31 - CONCLUSION: 1. Patent main renal arteries and lower pole accessory renal arteries bilaterally. 2. Old left posterior 10th and 11th rib fractures with lack of union. Rod Jones Jr., MD Head CT 02/16/17 0000 Signed Impressions: Service Date/Time: Thursday, February 16, 2017 18:52 - CONCLUSION: Normal examination. Alonso Sawant MD Myocardial Perfusion Scan Nuc Med 02/13/17 0000 Signed Impressions: Service Date/Time: February 13:24 - CONCLUSION: 1. Normal wall motion and calculated ejection fraction. 2. No fixed or reversible wall defects to suggest ischemia or infarction. RISK CATEGORY: Low (<1%% Annual Mortality Rate) Basil Ross MD Chest X-Ray 02/11/17 0640 Signed Impressions: Service Date/Time: Saturday, February 11, 2017 06:52 - CONCLUSION: No evidence of acute cardiopulmonary disease. Rom Pittman MD Abdomen/Pelvis CT 02/11/17 0000 Signed Impressions: Service Date/Time: Saturday, February 11, 2017 07:51 - CONCLUSION: 1. Hypodense liver compatible with fatty infiltration or hepatocellular disease. 2. Moderate splenomegaly without adenopathy Ernie De Santiago MD (Keerthi Pacheco) Assessment and Plan Problem List: (1) Resistant hypertension ICD Codes: I10 - Essential (primary) hypertension Plan: He is currently on: Hydralazine 50mg Q6 Doxazosin 4 mg daily Metoprolol 100 mg BID Cardizem CD 360 mg daily Lisinopril 40mg BID Aldactone 25mg daily HCTZ 25mg daily Occasional bradycardia noted, avoid increasing BB dosage Avoid IVF; excessive IVF given earlier in his stay may be contributing Low Na diet advised Avoid rapid overcorrection as not to induce renal injury (2) Diabetes mellitus ICD Codes: E11.9 - Diabetes mellitus Status: Chronic Plan: Labile glucose He is on insulin, oral medications have been held Medical team to manage (Keerthi Pacheco) Assessment and Plan Patient was seen and examined. Above note reviewed, agree with assessment. Workup for pheochromocytoma and hyperaldosteronism is negative so far. He is on Aldactone, and so cannot order 24 hour urine studies for catecholamines. I will change Diltiazem to Procardia XL. Change Lisinopril to Valsartan. Carefully start Minoxidil. Stop Doxazosin. Salt restriction was suggested. Can be discharged if SBP is in 170s with outpatient management. (Bishnu Torres MD) Problem Qualifiers (1) Diabetes mellitus: Keerthi Pacheco Feb 21, 2017 13:50 Bishnu Torres MD Feb 21, 2017 18:00
[2017-02-21 16:00] VITALS: BP 192/106; PULSE 70; RESP 20; TEMP 98; O2SAT 98
[2017-02-21 16:05] LABS: HEMOGLOBIN A1b 1.8 %; HEMOGLOBIN Ao 82.4 %; HEMOGLOBIN LA1C 2.3 %; HEMOGLOBIN P3 4.6 %
[2017-02-21] MEDS: ALPRAZolam 0.5 MG TAB PO PRN (18:08)
[2017-02-21 20:00] VITALS: BP 180/98
[2017-02-21] MEDS ORDERED: MINOXIDIL 2.5 MG TAB PO SCH (21:00)
[2017-02-21] MEDS ORDERED: cloNIDine HCL 0.1 MG TAB PO SCH (21:00)
[2017-02-21] MEDS: SPIRONOLACTONE 25 MG TAB PO SCH (21:02)
[2017-02-21] MEDS: TEMAZEPAM 15 MG CAP PO PRN (22:15)
[2017-02-21 23:53] LABS: DOPAMINE 11 pg/mL; NOREPINEPHRINE 371 pg/mL
[2017-02-22] VITALS (7 sets, daily range): BP systolic 150–202; BP diastolic 84–110; PULSE 74–80; RESP 14–16; TEMP 96.3–97.8; O2SAT 97–100
[2017-02-22] MEDS: hydrALAZINE HCL 50 MG TAB PO SCH ×4 (04:23→23:00)
[2017-02-22] MEDS: oxyCODONE/ACETAMINOPHEN 10 MG/325 MG TAB PO PRN ×4 (04:24→20:29)
[2017-02-22] MEDS: VALSARTAN 160 MG TAB PO SCH (08:30)
[2017-02-22] MEDS: THIAMINE HCL 100 MG TAB PO SCH (08:30)
[2017-02-22] MEDS: INSULIN ASPART SUPPLEMENTAL SCALE SQ SCH ×4 (08:30→20:33)
[2017-02-22] MEDS: METOPROLOL TARTRATE 100 MG TAB PO SCH ×2 (08:31→20:29)
[2017-02-22] MEDS: HYDROCHLOROTHIAZIDE 25 MG TAB PO SCH (08:31)
[2017-02-22] MEDS: DOCUSATE SODIUM 50 MG/SENNA 8.6 MG TAB PO SCH ×3 (08:31→20:32)
[2017-02-22] MEDS: MUPIROCIN 2% OINT 22 GM TUBE TOPICAL SCH ×2 (08:32→11:33)
[2017-02-22] MEDS: CLOTRIMAZOLE 1% CREAM 15 GM TOPICAL SCH ×2 (08:32→20:40)
[2017-02-22] MEDS: SODIUM CHLORIDE 0.9% FLUSH 10 ML FLUSH IV FLUSH SCH ×2 (08:32→20:26)
[2017-02-22] MEDS: NYSTATIN 100,000 UNIT/GM CREAM 15 GM TOPICAL SCH (09:00)
[2017-02-22] MEDS ORDERED: NIFEdipine 60 MG SUSTAINED RELEASE TAB PO SCH (09:00)
[2017-02-22] MEDS ORDERED: PILL SPLITTER OTHER PRN (09:15)
[2017-02-22] MEDS: MINOXIDIL 10 MG TAB PO SCH ×2 (09:36→20:44)
[2017-02-22] MEDS ORDERED: INSULIN DETEMIR 100 UNITS/ML VIAL SQ SCH ×2 (09:45→21:00)
--- NOTE | 2017-02-22 09:55 | HHI.PR ---
Subjective Remarks no cp , sob BG and HTN still not controlled BG reach 600 , [id number] despite maxing on multiple agents d/w , w/up for secondary reason still negative Objective Vitals Vital Signs Date Time Temp Pulse Resp B/P (MAP) Pulse Ox O2 Delivery O2 Flow Rate FiO2 02/22/17 08:19 97.3 74 15 192/98 (129) 97 02/22/17 04:00 170/86 (114) 02/22/17 00:00 168/84 (112) 02/21/17 20:00 180/98 (125) 02/21/17 18:26 18 02/21/17 16:00 98.0 70 20 192/106 (134) 98 02/21/17 13:30 84 20 182/110 (134) 96 02/21/17 12:00 98.2 72 18 200/110 (140) 98 I/O 02/21/17 02/21/17 02/21/17 02/22/17 02/22/17 02/22/17 07:00 15:00 23:00 07:00 15:00 23:00 Intake Total 120 ml 880 ml 590 ml 720 ml Balance 120 ml 880 ml 590 ml 720 ml Intake Oral 120 ml 880 ml 590 ml 720 ml # Voids 2 3 4 4 1 # Bowel Movements 4 5 Result Diagram: 02/18/17 0437 02/22/17 0815 Objective Remarks GENERAL: This is a well-nourished, well-developed patient, in no apparent distress. SKIN: No rashes, warm and dry , erythematous itchy skin in the inguinal fold, and skin break with an estimated skin in the right foot between the big toe on the first digit HEAD: Atraumatic. Normocephalic. EYES: Pupils equal round and reactive. Extraocular motions intact. No scleral icterus. ENT: Nose without bleeding, or drainage, Airway patent. NECK: Trachea midline. Supple CARDIOVASCULAR: Regular rate and rhythm without murmurs, gallops, or rubs. RESPIRATORY: Fair air entry bilaterally. No wheezes, rales, or rhonchi. GASTROINTESTINAL: Abdomen soft, non-tender, nondistended. Positive bowel sounds MUSCULOSKELETAL: Extremities without clubbing, cyanosis, or edema. Pedal pulses appreciated NEUROLOGICAL: Awake and alert. Moves all extremity. Normal speech.no focal neurological deficit A/P Problem List: (1) Hypertensive urgency ICD Code: I16.0 - Hypertensive urgency (2) Thrombocytopenia ICD Code: D69.6 - Thrombocytopenia, unspecified (3) Pancreatitis ICD Code: K85.90 - Acute pancreatitis without necrosis or infection, unspecified Status: Acute (4) Diabetes mellitus ICD Code: E11.9 - Diabetes mellitus Status: Chronic (5) Resistant hypertension ICD Code: I10 - Essential (primary) hypertension Assessment and Plan Hypertensive urgency with uncontrolled pressure refractory to multiple agents Uncontrolled diabetes mellitus Acute pancreatitis Thrombocytopenia Alcohol abuse possibly due to alcoholism Tinea crura was an pedis DVT prophylaxis Plan: appreciate nephrology auscultation on multiple agents, , patient now on Procardia and Diovan, minoxidil, hydralazine, clonidine, Lopressor, spironolactone, hydrochlorothiazide. hemoglobin A1c 7.9, increase Levemir and upgrade insulin sliding scale Clotrimazole for tinea cruris and pedis Prophylaxis with SCD and mobilization 02/22: BG and HTN still not controlled BG reach 600 , [id number] despite maxing on multiple agents d/w , w/up for secondary reason still negative . further adjustement will be by i inc levemir to 15 units gave a dose this morning , cobver with ISS high level , i closely followed with the nurse with q1 -q4 accucheck untill bg<200 will continue and i instyructed the nurse to continue checking also for any hypoglycemia Problem Qualifiers (1) Pancreatitis: Qualified Codes: K85.90 - Acute pancreatitis without necrosis or infection, unspecified (2) Diabetes mellitus: Angelika Denson MD Feb 22, 2017 09:55
[2017-02-22] MEDS ORDERED: INSULIN ASPART 1,000 UNITS/10 ML VIAL SQ ONE (10:00)
[2017-02-22] MEDS: ENALAPRILAT 2.5 MG/2 ML VIAL IV PUSH PRN (13:06)
--- NOTE | 2017-02-22 16:36 | HHI.NPPN ---
Subjective Additional Remarks Ongoing headaches, anxious about HTN Objective Data Data 02/22/17 02/23/17 18:59 06:59 # Voids 1 Vital Signs Date Time Temp Pulse Resp B/P (MAP) Pulse Ox O2 Delivery O2 Flow Rate FiO2 02/22/17 15:20 75 161/87 (111) 02/22/17 13:10 96.3 77 15 202/110 (140) 100 02/22/17 08:19 97.3 74 15 192/98 (129) 97 02/22/17 04:00 170/86 (114) 02/22/17 00:00 168/84 (112) 02/21/17 20:00 180/98 (125) 02/21/17 18:26 18 -: 02/18/17 0437 02/22/17 0815 Physical Exam General Appearance: Well Developed, Well Nourished, No Acute Distress Eyes Eye Exam: Pupils Equal Throat Throat Exam: Oral Mucosa [place] & Moist Neck Neck Exam: Neck Supple Pulmonary Resp Exam: Clear Bilaterally Cardiology CV Exam: Regular, Normal Sinus Rhythm Gastrointestinal/Abdomen GI Exam: Soft, Non-Tender, Bowel Sounds Present Integumentary Skin Exam: Warm, Dry, Intact Extremeties Extremities Exam: No Edema Psychiatric Psych Exam: Appropriate Responses Assessment/Plan Problem List: (1) Resistant hypertension ICD Codes: I10 - Essential (primary) hypertension Plan: Ongoing hypertension. Metanephrines,renin/aldosterone within normal limits. He is currently on: Hydralazine 50mg Q6 Doxazosin 4 mg daily Metoprolol 100 mg BID Procardia XL 60 daily Valsartan 320mg qday Aldactone 25mg daily HCTZ 25mg daily Minoxodil 2.5mg BID Will increase procardia XL to 90mg BID (BID dosing ok). Continue to titrate up medications as tolerated. Occasional bradycardia noted, avoid increasing BB dosage Avoid IVF; excessive IVF given earlier in his stay may be contributing Low Na diet advised Avoid rapid overcorrection as not to induce renal injury (2) Diabetes mellitus ICD Codes: E11.9 - Diabetes mellitus Status: Chronic Plan: Labile glucose He is on insulin, oral medications have been held Medical team to manage - hyperglycemia today Problem Qualifiers (1) Diabetes mellitus: Christofer Gamble MD Feb 22, 2017 16:36
[2017-02-22] MEDS: ALPRAZolam 0.5 MG TAB PO PRN ×2 (17:39→23:36)
[2017-02-22] MEDS: NIFEdipine 60 MG SUSTAINED RELEASE TAB PO SCH (20:30)
[2017-02-22] MEDS: SPIRONOLACTONE 25 MG TAB PO SCH (20:39)
[2017-02-22] MEDS: TEMAZEPAM 15 MG CAP PO PRN (22:55)
[2017-02-23] VITALS (8 sets, daily range): BP systolic 140–220; BP diastolic 90–110; PULSE 68–82; RESP 15–17; TEMP 96.7–99.4; O2SAT 96–100
[2017-02-23] MEDS: hydrALAZINE HCL 50 MG TAB PO SCH ×3 (05:48→17:26)
[2017-02-23] MEDS: oxyCODONE/ACETAMINOPHEN 10 MG/325 MG TAB PO PRN ×3 (05:52→21:08)
[2017-02-23 07:23] LABS: POTASSIUM 3.7 MEQ/L (3.5-5.1)
[2017-02-23 07:26] LABS: BICARBONATE 29.9 MEQ/L (21.0-32.0)
[2017-02-23] MEDS ORDERED: INSULIN DETEMIR 100 UNITS/ML VIAL SQ SCH (08:00)
[2017-02-23] MEDS: NIFEdipine 60 MG SUSTAINED RELEASE TAB PO SCH (08:16)
[2017-02-23] MEDS: MINOXIDIL 2.5 MG TAB PO SCH ×2 (08:16→20:54)
[2017-02-23] MEDS: VALSARTAN 160 MG TAB PO SCH (08:16)
[2017-02-23] MEDS: CLOTRIMAZOLE 1% CREAM 15 GM TOPICAL SCH ×2 (08:17→21:55)
[2017-02-23] MEDS: HYDROCHLOROTHIAZIDE 25 MG TAB PO SCH (08:17)
[2017-02-23] MEDS: METOPROLOL TARTRATE 100 MG TAB PO SCH ×2 (08:17→20:54)
[2017-02-23] MEDS: THIAMINE HCL 100 MG TAB PO SCH (08:17)
[2017-02-23] MEDS: DOCUSATE SODIUM 50 MG/SENNA 8.6 MG TAB PO SCH ×2 (08:18→20:55)
[2017-02-23] MEDS: INSULIN ASPART SUPPLEMENTAL SCALE SQ SCH ×4 (08:18→20:56)
[2017-02-23] MEDS: SODIUM CHLORIDE 0.9% FLUSH 10 ML FLUSH IV FLUSH SCH ×2 (08:19→20:51)
--- NOTE | 2017-02-23 09:01 | HHI.NPPN ---
Subjective Additional Remarks Lying in bed, no acute distress Objective Data Data Vital Signs Date Time Temp Pulse Resp B/P (MAP) Pulse Ox O2 Delivery O2 Flow Rate FiO2 02/23/17 04:00 97.9 82 16 140/90 (107) 99 02/23/17 00:00 97.9 80 16 170/110 (130) 98 02/22/17 21:29 17 02/22/17 20:00 97.8 80 16 150/100 (117) 98 02/22/17 16:42 97.2 79 14 182/94 (123) 97 02/22/17 15:20 75 161/87 (111) 02/22/17 13:10 96.3 77 15 202/110 (140) 100 -: 02/23/17 0654 Physical Exam General Appearance: Well Developed, Well Nourished, No Acute Distress Eyes Eye Exam: Pupils Equal Throat Throat Exam: Oral Mucosa [place] & Moist Neck Neck Exam: Neck Supple Pulmonary Resp Exam: Clear Bilaterally Cardiology CV Exam: Regular, Normal Sinus Rhythm Gastrointestinal/Abdomen GI Exam: Soft, Non-Tender, Bowel Sounds Present Integumentary Skin Exam: Warm, Dry, Intact Extremeties Extremities Exam: No Edema Psychiatric Psych Exam: Appropriate Responses Assessment/Plan Problem List: (1) Resistant hypertension ICD Codes: I10 - Essential (primary) hypertension Plan: Secondary workup negative to this point. Metanephrines,renin/aldosterone within normal limits. He is currently on: Hydralazine 50mg Q6 Doxazosin 4 mg daily Metoprolol 100 mg BID Procardia XL 60 BID Valsartan 320mg qday Aldactone 25mg daily HCTZ 25mg daily Minoxodil 2.5mg BID BP actually improved today (140-90 at 4AM). Last PRN Vasotec was at 1PM Friday. If stable on repeat, can be d/c today and follow up outpatient with Dr. Torres. If ongoing hypertension, can increase procardia XL to 90mg BID (BID dosing ok). Continue to titrate up medications as tolerated. Occasional bradycardia noted, avoid increasing BB dosage Avoid IVF; excessive IVF given earlier in his stay may be contributing Low Na diet advised Avoid rapid overcorrection as not to induce renal injury (2) Diabetes mellitus ICD Codes: E11.9 - Diabetes mellitus Status: Chronic Plan: Labile glucose He is on insulin, oral medications have been held Glucose improved today Problem Qualifiers (1) Diabetes mellitus: Christofer Gamble MD Feb 23, 2017 09:01
[2017-02-23] MEDS: ENALAPRILAT 2.5 MG/2 ML VIAL IV PUSH PRN (12:22)
--- NOTE | 2017-02-23 14:41 | HHI.PR ---
Objective Vitals Vital Signs Date Time Temp Pulse Resp B/P (MAP) Pulse Ox O2 Delivery O2 Flow Rate FiO2 02/23/17 13:20 17 189/99 (129) 02/23/17 13:02 18 02/23/17 12:35 97.1 77 16 220/110 (146) 100 02/23/17 08:58 96.7 68 15 164/92 (116) 97 02/23/17 04:00 97.9 82 16 140/90 (107) 99 02/23/17 00:00 97.9 80 16 170/110 (130) 98 02/22/17 20:00 97.8 80 16 150/100 (117) 98 02/22/17 16:42 97.2 79 14 182/94 (123) 97 02/22/17 15:20 75 161/87 (111) I/O 02/22/17 02/22/17 02/22/17 02/23/17 02/23/17 02/23/17 07:00 15:00 23:00 07:00 15:00 23:00 Intake Total 720 ml 1240 ml 720 ml Balance 720 ml 1240 ml 720 ml Intake Oral 720 ml 1240 ml 720 ml # Voids 4 1 6 Result Diagram: 02/23/17 0654 Objective Remarks GENERAL: This is a well-nourished, well-developed patient, in no apparent distress. SKIN: No rashes, warm and dry , erythematous itchy skin in the inguinal fold, and skin break with an estimated skin in the right foot between the big toe on the first digit HEAD: Atraumatic. Normocephalic. EYES: Pupils equal round and reactive. Extraocular motions intact. No scleral icterus. ENT: Nose without bleeding, or drainage, Airway patent. NECK: Trachea midline. Supple CARDIOVASCULAR: Regular rate and rhythm without murmurs, gallops, or rubs. RESPIRATORY: Fair air entry bilaterally. No wheezes, rales, or rhonchi. GASTROINTESTINAL: Abdomen soft, non-tender, nondistended. Positive bowel sounds MUSCULOSKELETAL: Extremities without clubbing, cyanosis, or edema. Pedal pulses appreciated NEUROLOGICAL: Awake and alert. Moves all extremity. Normal speech.no focal neurological deficit A/P Problem List: (1) Hypertensive urgency ICD Code: I16.0 - Hypertensive urgency (2) Thrombocytopenia ICD Code: D69.6 - Thrombocytopenia, unspecified (3) Pancreatitis ICD Code: K85.90 - Acute pancreatitis without necrosis or infection, unspecified Status: Acute (4) Diabetes mellitus ICD Code: E11.9 - Diabetes mellitus Status: Chronic (5) Resistant hypertension ICD Code: I10 - Essential (primary) hypertension Assessment and Plan Hypertensive urgency with uncontrolled pressure refractory to multiple agents Uncontrolled diabetes mellitus Acute pancreatitis Thrombocytopenia Alcohol abuse possibly due to alcoholism Tinea crura was an pedis DVT prophylaxis Plan: appreciate nephrology auscultation on multiple agents, , patient now on Procardia and Diovan, minoxidil, hydralazine, clonidine, Lopressor, spironolactone, hydrochlorothiazide. hemoglobin A1c 7.9, increase Levemir and upgrade insulin sliding scale Clotrimazole for tinea cruris and pedis Prophylaxis with SCD and mobilization 02/22: BG and HTN still not controlled BG reach 600 , [id number] despite maxing on multiple agents d/w , w/up for secondary reason still negative . further adjustement will be by i inc levemir to 15 units gave a dose this morning , cobver with ISS high level , i closely followed with the nurse with q1 -q4 accucheck untill bg<200 will continue and i instyructed the nurse to continue checking also for any hypoglycemia 02/23: Blood pressure relatively improved however still reached 190 systolic I discussed with the fur puller, he doesn't recommend aggressive correction will continue monitoring if blood pressure go below 170 he probably will be stable to be discharged and follow up as an outpatient, also blood pressure has been under much better control now, I will make the Levemir 15 units twice a day with insulin sliding scale Problem Qualifiers (1) Pancreatitis: Qualified Codes: K85.90 - Acute pancreatitis without necrosis or infection, unspecified (2) Diabetes mellitus: Angelika Denson MD Feb 23, 2017 14:41
[2017-02-23] MEDS ORDERED: DIOV160T6 PO (14:47)
[2017-02-23] MEDS ORDERED: HYDR-3800 PO (14:47)
[2017-02-23] MEDS ORDERED: MINO2.5T PO (14:47)
[2017-02-23] MEDS ORDERED: NOVOLOGSS SQ (14:47)
[2017-02-23] MEDS ORDERED: ALPR.5 PO (14:47)
[2017-02-23] MEDS ORDERED: NIFE60TA8 PO (14:47)
[2017-02-23] MEDS ORDERED: CLOT1CRE8 TOPICAL (14:47)
[2017-02-23] MEDS ORDERED: LEVEMIR SQ (14:47)
--- NOTE | 2017-02-23 17:22 | HHI.DS ---
Discharge Summary Admission Date Feb 11, 2017 at 09:30 Admitting Diagnosis pancreatitis, hypertension (1) Hypertensive urgency ICD Code: I16.0 - Hypertensive urgency (2) Thrombocytopenia ICD Code: D69.6 - Thrombocytopenia, unspecified (3) Pancreatitis ICD Code: K85.90 - Acute pancreatitis without necrosis or infection, unspecified Status: Acute (4) Diabetes mellitus ICD Code: E11.9 - Diabetes mellitus Status: Chronic (5) Resistant hypertension ICD Code: I10 - Essential (primary) hypertension Procedures None Brief History - From Admission This is a 52 year-old male with past medical history of hypertension who presents to the ER complaining of a 24-36 hour of upper abdominal pain/ chest pain radiating to his interscapular area. The pain started as a dull ache and gradually got more severe. No radiation. He did have one episode of emesis in the emergency department however has not had any other emesis. No palliative or provocative factors. The patient had negative troponin and EKG in the emergency department and pain did not respond to nitroglycerin. However lipase was elevated. Abdominal CT scan showed a hypodense liver consistent with hepatocellular disease however pancreas appeared normal. The patient endorses that he will drink up to a 12 pack of [place] light. He denies any history of withdrawal symptoms. His blood pressure was also markedly elevated in the emergency department requiring multiple doses of IV labetalol and finally a Cardene drip was started. Blood pressure is now 167/86. He states normally his systolic blood pressure ranges from 140-150. His primary care physician is Dr. Hinojosa. The patient complains of headache after the nitroglycerin. CBC/BMP: 02/23/17 0654 Significant Findings Laboratory Tests Test 02/21/17 12:15 02/22/17 08:15 02/23/17 06:54 Hemoglobin A1c 7.9 % (4.3-6.0) Random Glucose 616 MG/DL (74-106) 283 MG/DL (74-106) Albumin 2.7 GM/DL (3.4-5.0) Calcium Level 8.3 MG/DL (8.5-10.1) Sodium Level 133 MEQ/L (136-145) Chloride Level 96 MEQ/L (98-107) Estimat Glomerular Filtration Rate 78 ML/MIN (>89) PE at Discharge GENERAL: This is a well-nourished, well-developed patient, in no apparent distress. SKIN: No rashes, warm and dry , erythematous itchy skin in the inguinal fold, and skin break with an estimated skin in the right foot between the big toe on the first digit HEAD: Atraumatic. Normocephalic. EYES: Pupils equal round and reactive. Extraocular motions intact. No scleral icterus. ENT: Nose without bleeding, or drainage, Airway patent. NECK: Trachea midline. Supple CARDIOVASCULAR: Regular rate and rhythm without murmurs, gallops, or rubs. RESPIRATORY: Fair air entry bilaterally. No wheezes, rales, or rhonchi. GASTROINTESTINAL: Abdomen soft, non-tender, nondistended. Positive bowel sounds MUSCULOSKELETAL: Extremities without clubbing, cyanosis, or edema. Pedal pulses appreciated NEUROLOGICAL: Awake and alert. Moves all extremity. Normal speech.no focal neurological deficit Hospital Course Patient admitted with hypertensive urgency severely and the refractory uncontrolled blood pressure acute pancreatitis thrombocytopenia history of alcohol abuse, tinea cruris and pedis. Nothing by mouth iv fluid, and Aggressive adjustment of his antihypertensive regimen made by nephrology, also patient had severely uncontrolled diabetes mellitus with blood glucoses reach 600, however A1c was only 7.9, also aggressive insulin regimen has been made patient was discharged on multiple hypertensive medication and on Levemir 15 units twice a day with insulin sliding scale, extensive counseling about alcohol abstinence, no salt diet, and diabetic education has been delivered to the patient Pt Condition on Discharge: Stable Discharge Disposition: Discharge Home Discharge Time: > 30 minutes Discharge Instructions DIET: Follow Instructions for: Heart Healthy Diet Additional Diet Instructions: low fat, no alcoholic beverages, no salt diet Activities you can perform: Regular-No Restrictions Follow up Referrals: PCP Follow-up - 3-5 Days New Medications: Alprazolam (Xanax) 0.5 Mg Tab 0.5 MG PO Q6HR PRN for Anxiety, #15 TAB Clotrimazole Topical (Clotrimazole AF Topical) 1% Cream 1 APPLIC TOPICAL Q12HR for skin infx for 15 Days, TUBE Hydralazine HCl (Hydralazine HCl) 50 Mg Tablet 50 MG PO Q6HR for Blood Pressure Management, #90 TAB Hydrochlorothiazide (Hydrochlorothiazide) 25 Mg Tab 25 MG PO DAILY for Blood Pressure Management, #30 TAB Hydrocodone-Acetaminophen (Hydrocodone-Acetaminophen) 5-325 mg Tab 1-2 TAB PO Q6HR PRN for pain, #30 TAB Insulin Aspart Inj (Novolog Inj) 100 Unit/Ml Inj 1 UNITS SQ ACHS SLIDING SCALE for dm for 30 Days, INJECTION Insulin Detemir Inj (Levemir Inj) 1,000 unit/ 10 ML Vial 15 UNITS SQ BID for dm for 30 Days, INJECTION Do not mix with any other Insulin. Minoxidil (Minoxidil) 2.5 Mg Tab 2.5 MG PO BID for htn, #60 TAB Nifedipine ER 24 HR (Nifedipine ER 24 HR) 60 Mg Tab 60 MG PO BID for htn, #60 TAB Spironolactone (Aldactone) 25 Mg Tab 25 MG PO HS for Blood Pressure Management, #30 TAB Valsartan (Diovan) 160 Mg Tab 320 MG PO DAILY for htn, #60 TAB Continued Medications: Glyburide-Metformin (Glyburide-Metformin) 2.5-500 Mg Tab 1 TAB PO BID for Blood Sugar Management, #60 TAB 0 Refills Take with a meal Metoprolol Tartrate (Metoprolol Tartrate) 100 Mg Tab 100 MG PO BID, #60 TAB 0 Refills Temazepam (Temazepam) 15 Mg Cap 15 MG PO HS PRN for INSOMNIA, #30 CAP 0 Refills Angelika Denson MD Feb 23, 2017 17:22
[2017-02-23] MEDS: SPIRONOLACTONE 50 MG TAB PO SCH (20:55)
[2017-02-23] MEDS: INSULIN DETEMIR 100 UNITS/ML VIAL SQ SCH (20:56)
[2017-02-23] MEDS: NIFEdipine 90 MG SUSTAINED RELEASE TAB PO SCH (21:08)
[2017-02-23] MEDS: TEMAZEPAM 15 MG CAP PO PRN (21:55)
[2017-02-24] VITALS (8 sets, daily range): BP systolic 160–227; BP diastolic 98–114; PULSE 73–88; RESP 16–20; TEMP 96.5–99.1; O2SAT 97–99
[2017-02-24] MEDS: hydrALAZINE HCL 50 MG TAB PO SCH ×4 (00:59→18:29)
[2017-02-24] MEDS: oxyCODONE/ACETAMINOPHEN 10 MG/325 MG TAB PO PRN ×5 (01:00→20:03)
[2017-02-24] MEDS ORDERED: INSULIN ASPART 1,000 UNITS/10 ML VIAL SQ ONE (01:00)
[2017-02-24 05:58] LABS: POTASSIUM 3.8 MEQ/L (3.5-5.1)
[2017-02-24 06:02] LABS: BICARBONATE 31.6 MEQ/L (21.0-32.0)
[2017-02-24] MEDS: INSULIN DETEMIR 100 UNITS/ML VIAL SQ SCH ×2 (08:24→20:58)
[2017-02-24] MEDS: MINOXIDIL 2.5 MG TAB PO SCH ×2 (08:28→20:58)
[2017-02-24] MEDS: HYDROCHLOROTHIAZIDE 25 MG TAB PO SCH (08:29)
[2017-02-24] MEDS: METOPROLOL TARTRATE 100 MG TAB PO SCH ×2 (08:29→20:58)
[2017-02-24] MEDS: NIFEdipine 90 MG SUSTAINED RELEASE TAB PO SCH ×2 (08:30→20:58)
[2017-02-24] MEDS: VALSARTAN 160 MG TAB PO SCH (08:30)
[2017-02-24] MEDS: DOCUSATE SODIUM 50 MG/SENNA 8.6 MG TAB PO SCH ×2 (08:30→20:57)
[2017-02-24] MEDS: THIAMINE HCL 100 MG TAB PO SCH (08:30)
[2017-02-24] MEDS ORDERED: cloNIDine HCL 0.1 MG TAB PO PRN (09:45)
[2017-02-24] MEDS: ENALAPRILAT 2.5 MG/2 ML VIAL IV PUSH PRN ×2 (11:32→18:30)
[2017-02-24] MEDS: CLOTRIMAZOLE 1% CREAM 15 GM TOPICAL SCH ×2 (11:32→20:59)
[2017-02-24] MEDS: INSULIN ASPART SUPPLEMENTAL SCALE SQ SCH ×4 (11:42→20:59)
[2017-02-24] MEDS: SODIUM CHLORIDE 0.9% FLUSH 10 ML FLUSH IV FLUSH SCH ×2 (11:44→20:58)
--- NOTE | 2017-02-24 13:39 | HHI.PR ---
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 Blood sugar also worsen again after got good control yesterday, I asked the patient if he is vomiting after taking the pills stated no I instructed the nurse to make sure patient swallowing the pills and not regurgitate them, also wipe his fingers well before getting Accu-Chek and administering insulin Objective Vitals Vital Signs Date Time Temp Pulse Resp B/P (MAP) Pulse Ox O2 Delivery O2 Flow Rate FiO2 02/24/17 12:00 98.3 80 20 218/102 (140) 97 227/109 (148) 02/24/17 08:00 97.2 73 18 98 200/100 (133) 02/24/17 07:23 18 02/24/17 04:00 99.1 80 16 190/110 (136) 99 204/114 (144) 02/24/17 00:00 99.1 80 16 160/100 (120) 99 02/23/17 20:00 99.4 80 16 210/110 (143) 99 02/23/17 16:21 97.9 76 15 96 02/23/17 16:08 182/90 (120) I/O 02/23/17 02/23/17 02/23/17 02/24/17 02/24/17 02/24/17 07:00 15:00 23:00 07:00 15:00 23:00 Intake Total 720 ml 800 ml 240 ml Balance 720 ml 800 ml 240 ml Intake Oral 720 ml 800 ml 240 ml # Voids 3 2 Result Diagram: 02/24/17 0533 Objective Remarks GENERAL: This is a well-nourished, well-developed patient, in no apparent distress. SKIN: No rashes, warm and dry , erythematous itchy skin in the inguinal fold, and skin break with an estimated skin in the right foot between the big toe on the first digit HEAD: Atraumatic. Normocephalic. EYES: Pupils equal round and reactive. Extraocular motions intact. No scleral icterus. ENT: Nose without bleeding, or drainage, Airway patent. NECK: Trachea midline. Supple CARDIOVASCULAR: Regular rate and rhythm without murmurs, gallops, or rubs. RESPIRATORY: Fair air entry bilaterally. No wheezes, rales, or rhonchi. GASTROINTESTINAL: Abdomen soft, non-tender, nondistended. Positive bowel sounds MUSCULOSKELETAL: Extremities without clubbing, cyanosis, or edema. Pedal pulses appreciated NEUROLOGICAL: Awake and alert. Moves all extremity. Normal speech.no focal neurological deficit Procedures None A/P Problem List: (1) Hypertensive urgency ICD Code: I16.0 - Hypertensive urgency (2) Thrombocytopenia ICD Code: D69.6 - Thrombocytopenia, unspecified (3) Pancreatitis ICD Code: K85.90 - Acute pancreatitis without necrosis or infection, unspecified Status: Acute (4) Diabetes mellitus ICD Code: E11.9 - Diabetes mellitus Status: Chronic (5) Resistant hypertension ICD Code: I10 - Essential (primary) hypertension Assessment and Plan Hypertensive urgency with uncontrolled pressure refractory to multiple agents Uncontrolled diabetes mellitus Acute pancreatitis Thrombocytopenia Alcohol abuse possibly due to alcoholism Tinea crura was an pedis DVT prophylaxis Plan: Nephrology following placed patient on multiple agents, , Procardia and Diovan, minoxidil, hydralazine, Lopressor, spironolactone, hydrochlorothiazide. hemoglobin A1c 7.9, 15 units Levemir twice a day and upgrade insulin sliding scale Clotrimazole for tinea cruris and pedis Prophylaxis with SCD and mobilization Lengthy discussion with the patient, very refractory blood pressure to treatment , as well as diabetes mellitus, I instructed the nurse to keep close eye on monitoring especially when giving blood pressure medication and checking Accu- Chek, patient denied any surreptitious sugar bar prior to Accu-Chek, also denied regurgitating blood pressure medication Discharge Planning Patient should be able to be discharged once blood pressure and sugar under acceptable control Problem Qualifiers (1) Pancreatitis: Qualified Codes: K85.90 - Acute pancreatitis without necrosis or infection, unspecified (2) Diabetes mellitus: Angelika Denson MD Feb 24, 2017 13:39
[2017-02-24] MEDS: ALPRAZolam 0.5 MG TAB PO PRN (15:51)
[2017-02-24] MEDS: SPIRONOLACTONE 50 MG TAB PO SCH (20:57)
[2017-02-25] VITALS (7 sets, daily range): BP systolic 169–198; BP diastolic 90–107; PULSE 72–81; RESP 18–20; TEMP 96.9–98.2; O2SAT 96–98
[2017-02-25] MEDS: oxyCODONE/ACETAMINOPHEN 10 MG/325 MG TAB PO PRN ×6 (00:08→22:40)
[2017-02-25] MEDS: hydrALAZINE HCL 50 MG TAB PO SCH ×4 (00:09→18:18)
[2017-02-25] MEDS: TEMAZEPAM 15 MG CAP PO PRN ×2 (00:11→20:49)
[2017-02-25] MEDS: ENALAPRILAT 2.5 MG/2 ML VIAL IV PUSH PRN (00:15)
[2017-02-25] MEDS: INSULIN ASPART SUPPLEMENTAL SCALE SQ SCH ×4 (08:00→22:39)
[2017-02-25] MEDS: HYDROCHLOROTHIAZIDE 25 MG TAB PO SCH (09:00)
[2017-02-25] MEDS: NIFEdipine 90 MG SUSTAINED RELEASE TAB PO SCH ×2 (09:12→20:49)
[2017-02-25] MEDS: ONDANSETRON HCL 4 MG/2 ML VIAL IVP PRN (09:12)
[2017-02-25] MEDS: INSULIN DETEMIR 100 UNITS/ML VIAL SQ SCH ×2 (09:12→20:49)
[2017-02-25] MEDS: THIAMINE HCL 100 MG TAB PO SCH (09:12)
[2017-02-25] MEDS: DOCUSATE SODIUM 50 MG/SENNA 8.6 MG TAB PO SCH ×2 (09:13→20:50)
[2017-02-25] MEDS: MINOXIDIL 2.5 MG TAB PO SCH ×2 (09:13→20:48)
[2017-02-25] MEDS: VALSARTAN 160 MG TAB PO SCH (09:13)
[2017-02-25] MEDS: METOPROLOL TARTRATE 100 MG TAB PO SCH (09:14)
[2017-02-25] MEDS: SODIUM CHLORIDE 0.9% FLUSH 10 ML FLUSH IV FLUSH SCH ×2 (09:34→20:50)
[2017-02-25] MEDS: CLOTRIMAZOLE 1% CREAM 15 GM TOPICAL SCH ×2 (09:41→20:50)
--- NOTE | 2017-02-25 11:48 | HHI.PR ---
Subjective Remarks Patient seen and evaluated today in follow-up for uncontrolled hypertension despite multiple medications. Patient on nifedipine 90 mg twice a day, hydrochlorothiazide 25mg daily, Diovan 320 mg daily He has also been on hydralazine 50 mg, also minoxidil and metoprolol. Patient' s blood pressure is still 198/100. Nephrology assistance appreciated Objective Vitals Vital Signs Date Time Temp Pulse Resp B/P (MAP) Pulse Ox O2 Delivery O2 Flow Rate FiO2 02/25/17 08:00 98.1 72 18 198/100 (132) 97 185/96 (125) 02/25/17 04:00 96.9 75 20 169/98 (121) 98 02/25/17 02:47 170/98 (122) 02/25/17 00:00 97.3 81 20 183/107 (132) 98 02/24/17 20:00 96.5 80 18 179/102 (127) 98 02/24/17 18:10 88 18 180/98 (125) 99 02/24/17 18:00 96.5 80 18 179/102 (127) 98 02/24/17 16:51 18 02/24/17 15:53 198/98 (131) 02/24/17 12:00 98.3 80 20 218/102 (140) 97 227/109 (148) I/O 02/24/17 02/24/17 02/24/17 02/25/17 02/25/17 02/25/17 06:59 14:59 22:59 06:59 14:59 22:59 Intake Total 240 ml 600 ml 240 ml Balance 240 ml 600 ml 240 ml Intake Oral 240 ml 600 ml 240 ml # Voids 2 3 3 # Bowel Movements 0 Result Diagram: 02/24/17 0533 Imaging Last Impressions Abdomen CTA 02/20/17 0000 Signed Impressions: Service Date/Time: February 10:31 - CONCLUSION: 1. Patent main renal arteries and lower pole accessory renal arteries bilaterally. 2. Old left posterior 10th and 11th rib fractures with lack of union. Rod Jones Jr., MD Head CT 02/16/17 0000 Signed Impressions: Service Date/Time: Thursday, February 16, 2017 18:52 - CONCLUSION: Normal examination. Alonso Sawant MD Myocardial Perfusion Scan Nuc Med 02/13/17 0000 Signed Impressions: Service Date/Time: February 13:24 - CONCLUSION: 1. Normal wall motion and calculated ejection fraction. 2. No fixed or reversible wall defects to suggest ischemia or infarction. RISK CATEGORY: Low (<1%% Annual Mortality Rate) Basil Ross MD Chest X-Ray 02/11/17 0640 Signed Impressions: Service Date/Time: Saturday, February 11, 2017 06:52 - CONCLUSION: No evidence of acute cardiopulmonary disease. Rom Pittman MD Abdomen/Pelvis CT 02/11/17 0000 Signed Impressions: Service Date/Time: Saturday, February 11, 2017 07:51 - CONCLUSION: 1. Hypodense liver compatible with fatty infiltration or hepatocellular disease. 2. Moderate splenomegaly without adenopathy Ernie De Santiago MD Objective Remarks GENERAL: This is a well-nourished, well-developed patient, in no apparent distress. CARDIOVASCULAR: Regular rate and rhythm without murmurs, gallops, or rubs. RESPIRATORY: Clear to auscultation. Breath sounds equal bilaterally. No wheezes , rales, or rhonchi. GASTROINTESTINAL: Abdomen soft, non-tender, nondistended. Normal active bowel sounds MUSCULOSKELETAL: Extremities without clubbing, cyanosis, or edema. NEURO: Alert & Oriented x4 to person, place, time, situation. Moves all ext x4 Procedures None A/P Problem List: (1) Hypertensive urgency ICD Code: I16.0 - Hypertensive urgency Plan: Renal arteries patent Stress test unremarkable Continue with nifedipine twice a day, Aldactone, hydrochlorothiazide daily, Diovan daily, will DC minoxidil and metoprolol and use Coreg 25 twice daily until patient's beta amos (heart rate in the 50s), will adjust hydralazine (2) Thrombocytopenia ICD Code: D69.6 - Thrombocytopenia, unspecified Plan: Likely due to chronic alcoholism and splenic sequestration, no evidence of bleeding Continue clinical surveillance (3) Pancreatitis ICD Code: K85.90 - Acute pancreatitis without necrosis or infection, unspecified Status: Acute Plan: Resolved, likely due to alcoholism versus uncontrolled diabetes Hemoglobin A1c 7.9, random blood sugars have been in the 600s here (4) Diabetes mellitus ICD Code: E11.9 - Diabetes mellitus Status: Chronic Plan: Uncontrolled, continue patient education and dietary adherence Sliding scale with insulin Discharge Planning Pending blood pressure improvement, goal of about 160/80 likely in am Problem Qualifiers (1) Pancreatitis: Qualified Codes: K85.90 - Acute pancreatitis without necrosis or infection, unspecified (2) Diabetes mellitus: Mirlande Diehl MD Feb 25, 2017 11:48
--- NOTE | 2017-02-25 12:32 | HHI.NPPN ---
Subjective Interval History Blood pressure is still elevated. He has occasional headaches. (Keerthi Pacheco) Objective Data Data Vital Signs Date Time Temp Pulse Resp B/P (MAP) Pulse Ox O2 Delivery O2 Flow Rate FiO2 02/25/17 08:00 98.1 72 18 198/100 (132) 97 185/96 (125) 02/25/17 04:00 96.9 75 20 169/98 (121) 98 02/25/17 02:47 170/98 (122) 02/25/17 00:00 97.3 81 20 183/107 (132) 98 02/24/17 20:00 96.5 80 18 179/102 (127) 98 02/24/17 18:10 88 18 180/98 (125) 99 02/24/17 18:00 96.5 80 18 179/102 (127) 98 02/24/17 16:51 18 02/24/17 15:53 198/98 (131) (Keerthi Pacheco) -: 02/24/17 0533 Physical Exam General Appearance: Well Developed, Well Nourished, No Acute Distress (Keerthi Pacheco) Eyes Eye Exam: Pupils Equal (Keerthi Pacheco) Throat Throat Exam: Oral Mucosa [place] & Moist (Keerthi Pacheco) Neck Neck Exam: Neck Supple (Keerthi Pacheco) Pulmonary Resp Exam: Clear Bilaterally (Keerthi Pacheco) Cardiology CV Exam: Regular, Normal Sinus Rhythm (Keerthi Pacheco) Gastrointestinal/Abdomen GI Exam: Soft, Non-Tender, Bowel Sounds Present (Keerthi Pacheco) Integumentary Skin Exam: Warm, Dry, Intact (Keerthi Pacheco) Extremeties Extremities Exam: No Edema (Keerthi Pacheco) Psychiatric Psych Exam: Appropriate Responses (Keerthi Pacheco) Assessment/Plan Assessment Summary: Hypertension Problem List: (1) Resistant hypertension ICD Codes: I10 - Essential (primary) hypertension Plan: Secondary workup negative so far. Metanephrines,renin/aldosterone within normal limits. 7 antihypertensives include: Minoxidil increased to 5 po BID Metoprolol changed to Coreg Maxed out on dosage for hydralazine, HCTZ, valsartan, and nifedipine Also on Aldactone Clonidine patch is an alternative if above changes not effective. Continue to titrate up medications as tolerated. Avoid IVF; excessive IVF given earlier in his stay may be contributing Low Na diet advised Avoid rapid overcorrection as not to induce renal injury (2) Diabetes mellitus ICD Codes: E11.9 - Diabetes mellitus Status: Chronic Plan: Medical team to manage, he has had labile glucose He is on insulin, oral medications resumed Monitor (Keerthi Pacheco) Plan Agree with above assessment and plan. If the patient agrees (he claims allergy to Clonidine, but most likely it is a side effect), recommend Clonidine patch. (Bishnu Torres MD) Problem Qualifiers (1) Diabetes mellitus: Keerthi Pacheco Feb 25, 2017 12:32 Bishnu Torres MD Feb 26, 2017 10:16
[2017-02-25] MEDS: ALPRAZolam 0.5 MG TAB PO PRN (12:47)
[2017-02-25] MEDS: CARVEDILOL 12.5 MG TAB PO SCH ×2 (12:47→20:49)
[2017-02-25] MEDS: metFORMIN HCL 500 MG TAB PO SCH (18:17)
[2017-02-25] MEDS: glyBURIDE 2.5 MG TAB PO SCH (18:18)
[2017-02-25] MEDS ORDERED: INSULIN HUMAN REGULAR 1,000 UNITS/10 ML VIAL IV PUSH ONE (20:00)
[2017-02-25] MEDS: SPIRONOLACTONE 50 MG TAB PO SCH (20:49)
[2017-02-26] VITALS (27 sets, daily range): BP systolic 82–195; BP diastolic 53–107; PULSE 66–108; RESP 14–50; TEMP 97.4–98.6; O2SAT 96–98
[2017-02-26] MEDS: hydrALAZINE HCL 50 MG TAB PO SCH ×4 (00:17→17:01)
[2017-02-26] MEDS: oxyCODONE/ACETAMINOPHEN 10 MG/325 MG TAB PO PRN (06:31)
[2017-02-26] MEDS: INSULIN ASPART SUPPLEMENTAL SCALE SQ SCH ×4 (07:14→21:11)
[2017-02-26] MEDS: ENALAPRILAT 2.5 MG/2 ML VIAL IV PUSH PRN (07:44)
[2017-02-26] MEDS: DOCUSATE SODIUM 50 MG/SENNA 8.6 MG TAB PO SCH (08:43)
[2017-02-26] MEDS: CARVEDILOL 12.5 MG TAB PO SCH ×2 (08:43→21:09)
[2017-02-26] MEDS: glyBURIDE 2.5 MG TAB PO SCH ×2 (08:43→17:01)
[2017-02-26] MEDS: metFORMIN HCL 500 MG TAB PO SCH ×2 (08:43→17:01)
[2017-02-26] MEDS: THIAMINE HCL 100 MG TAB PO SCH (08:43)
[2017-02-26] MEDS: NIFEdipine 90 MG SUSTAINED RELEASE TAB PO SCH (08:43)
[2017-02-26] MEDS: VALSARTAN 160 MG TAB PO SCH (08:43)
[2017-02-26] MEDS: INSULIN DETEMIR 100 UNITS/ML VIAL SQ SCH ×2 (08:44→21:13)
[2017-02-26] MEDS: HYDROCHLOROTHIAZIDE 25 MG TAB PO SCH (08:44)
[2017-02-26] MEDS: MINOXIDIL 2.5 MG TAB PO SCH ×2 (08:44→21:10)
[2017-02-26] MEDS: SODIUM CHLORIDE 0.9% FLUSH 10 ML FLUSH IV FLUSH SCH ×2 (09:00→21:00)
[2017-02-26] MEDS: CLOTRIMAZOLE 1% CREAM 15 GM TOPICAL SCH ×2 (09:00→21:10)
[2017-02-26] MEDS ORDERED: MINO2.5T PO (09:07)
[2017-02-26] MEDS ORDERED: CARV12.5 PO (09:07)
--- NOTE | 2017-02-26 09:57 | HHI.FF ---
Face to Face Verification Diagnosis: (1) Hypertension (2) Diabetes mellitus Home Health Nursing Order: Medical education Signs/symptoms of disease process Diabetic education Nursing assessment with vital signs I have seen patient Servando Ballesteros on 02/26/17. My clinical findings support the need for the requested home health care services because: Med compliance is questionable I certify that my clinical findings support that this patient is homebound because: Unable to use public transportation Mirlande Diehl MD Feb 26, 2017 09:57
[2017-02-26] MEDS ORDERED: DOCUSATE SODIUM 50 MG/SENNA 8.6 MG TAB PO PRN (12:15)
[2017-02-26] MEDS ORDERED: ZOLPIDEM TARTRATE 10 MG TAB PO PRN (13:00)
--- NOTE | 2017-02-26 13:04 | HHI.PR ---
Subjective Remarks Patient seen today in follow-up for uncontrolled hypertension and uncontrolled diabetes Likely slowly improving. Discussed with patient Headache is improved Objective Vitals Vital Signs Date Time Temp Pulse Resp B/P (MAP) Pulse Ox O2 Delivery O2 Flow Rate FiO2 02/26/17 12:00 98.1 76 18 97 02/26/17 11:52 185/107 (133) 02/26/17 08:50 165/85 (111) 02/26/17 08:00 97.4 80 18 Manual Cuff/Auscultation 98 02/26/17 04:00 97.7 79 20 159/75 (103) 97 02/26/17 00:00 98.0 86 20 134/73 (93) 97 02/25/17 20:00 97.0 77 18 170/90 (116) 97 176/90 (118) 02/25/17 19:38 18 02/25/17 16:00 98.2 80 18 198/98 (131) 97 178/104 (128) I/O 02/25/17 02/25/17 02/25/17 02/26/17 02/26/17 02/26/17 07:00 15:00 23:00 07:00 15:00 23:00 Intake Total 240 ml 1200 ml 500 ml Balance 240 ml 1200 ml 500 ml Intake Oral 240 ml 1200 ml 500 ml # Voids 3 6 3 # Bowel Movements 0 Result Diagram: 02/25/171904 Objective Remarks GENERAL: This is a well-nourished, well-developed patient, in no apparent distress. CARDIOVASCULAR: Regular rate and rhythm without murmurs, gallops, or rubs. RESPIRATORY: Clear to auscultation. Breath sounds equal bilaterally. No wheezes , rales, or rhonchi. GASTROINTESTINAL: Abdomen soft, non-tender, nondistended. Normal active bowel sounds MUSCULOSKELETAL: Extremities without clubbing, cyanosis, or edema. NEURO: Alert & Oriented x4 to person, place, time, situation. Moves all ext x4 Procedures None A/P Problem List: (1) Hypertensive urgency ICD Code: I16.0 - Hypertensive urgency Plan: Renal arteries patent Stress test unremarkable Continue with nifedipine twice a day, Aldactone, hydrochlorothiazide daily, Diovan daily, bid minoxidil and Coreg 25 twice daily until patient's beta amos (heart rate in the 50s), cont hydralazine d/w nephrology (2) Thrombocytopenia ICD Code: D69.6 - Thrombocytopenia, unspecified Plan: Likely due to chronic alcoholism and splenic sequestration, no evidence of bleeding Continue clinical surveillance (3) Pancreatitis ICD Code: K85.90 - Acute pancreatitis without necrosis or infection, unspecified Status: Acute Plan: Resolved, likely due to alcoholism versus uncontrolled diabetes (4) Diabetes mellitus ICD Code: E11.9 - Diabetes mellitus Status: Chronic Plan: Uncontrolled, continue patient education and dietary adherence Sliding scale with insulin Hemoglobin A1c 7.9, random blood sugars have been in the 600s here resume home meds, with insulin Discharge Planning Pending blood pressure improvement, goal of about 160/80 Problem Qualifiers (1) Pancreatitis: Qualified Codes: K85.90 - Acute pancreatitis without necrosis or infection, unspecified (2) Diabetes mellitus: Mirlande Diehl MD Feb 26, 2017 13:04
[2017-02-26] MEDS: ACETAMINOPHEN 325 MG TAB PO PRN (14:10)
--- NOTE | 2017-02-26 15:36 | HHI.NPPN ---
Subjective Interval History His blood pressure had responded to medication changes. To be discharged. (Keerthi Pacheco) Objective Data Data Vital Signs Date Time Temp Pulse Resp B/P (MAP) Pulse Ox O2 Delivery O2 Flow Rate FiO2 02/26/17 12:00 98.1 76 18 97 02/26/17 11:52 185/107 (133) 02/26/17 08:50 165/85 (111) 02/26/17 08:00 97.4 80 18 Manual Cuff/Auscultation 98 02/26/17 04:00 97.7 79 20 159/75 (103) 97 02/26/17 00:00 98.0 86 20 134/73 (93) 97 02/25/17 20:00 97.0 77 18 170/90 (116) 97 176/90 (118) 02/25/17 19:38 18 02/25/17 16:00 98.2 80 18 198/98 (131) 97 178/104 (128) (Keerthi Pacheco) -: 02/25/17 1905 Physical Exam General Appearance: Well Developed, Well Nourished, No Acute Distress (Keerthi Pacheco) Eyes Eye Exam: Pupils Equal (Keerthi Pacheco) Throat Throat Exam: Oral Mucosa [place] & Moist (Keerthi Pacheco) Neck Neck Exam: Neck Supple (Kerethi Pacheco) Pulmonary Resp Exam: Clear Bilaterally (Keerthi Pacheco) Cardiology CV Exam: Regular, Normal Sinus Rhythm (Keerthi Pacheco) Gastrointestinal/Abdomen GI Exam: Soft, Non-Tender, Bowel Sounds Present (Keerthi Pacheco) Integumentary Skin Exam: Warm, Dry, Intact (Keerthi Pacheco) Extremeties Extremities Exam: No Edema (Keerthi Pacheco) Psychiatric Psych Exam: Appropriate Responses (Keerthi Pacheco) Assessment/Plan Assessment Summary: Hypertension Problem List: (1) Resistant hypertension ICD Codes: I10 - Essential (primary) hypertension Plan: Secondary workup negative so far. Metanephrines,renin/aldosterone within normal limits. 7 antihypertensives include: Minoxidil increased to 5 po BID Metoprolol changed to Coreg Maxed out on dosage for hydralazine, HCTZ, valsartan, and nifedipine Also on Aldactone He is stable for discharge. Can follow with PCP for medication changes. Low Na diet advised (2) Diabetes mellitus ICD Codes: E11.9 - Diabetes mellitus Status: Chronic Plan: Medical team to manage, he has had labile glucose He is on insulin, oral medications resumed Monitor (Keerthi Pacheco) Plan patient was seen and examined. Agree with above assessment and plan. (Bishnu Torres MD) Problem Qualifiers (1) Diabetes mellitus: Keerthi Pacheco Feb 26, 2017 15:36 Bishnu Torres MD Feb 26, 2017 22:12
[2017-02-26] MEDS: niCARdipine INJ 25 MG in SODIUM CHLOR 0.9% 250 ML INJ 240 ML IV PRN ×2 (19:00→23:07)
[2017-02-26] MEDS ORDERED: diphenhydrAMINE HCL 50 MG/ML VIAL IV PUSH ONE (21:00)
[2017-02-26] MEDS: SPIRONOLACTONE 50 MG TAB PO SCH (21:17)
[2017-02-26] MEDS ORDERED: niCARdipine INJ 25 MG in SODIUM CHLOR 0.9% 250 ML INJ 250 ML IV PRN ×4 (23:45)
[2017-02-27] VITALS (14 sets, daily range): BP systolic 92–189; BP diastolic 46–97; PULSE 64–74; RESP 1–19; TEMP 97.3–98.7; O2SAT 95–97
[2017-02-27] MEDS: ALPRAZolam 0.5 MG TAB PO PRN ×2 (01:40→16:37)
[2017-02-27] MEDS: hydrALAZINE HCL 50 MG TAB PO SCH ×4 (06:00→17:21)
[2017-02-27] MEDS: glyBURIDE 2.5 MG TAB PO SCH ×2 (08:46→17:21)
[2017-02-27] MEDS: INSULIN ASPART SUPPLEMENTAL SCALE SQ SCH ×3 (08:46→17:21)
[2017-02-27] MEDS: MINOXIDIL 2.5 MG TAB PO SCH (09:00)
[2017-02-27] MEDS: HYDROCHLOROTHIAZIDE 25 MG TAB PO SCH (09:00)
[2017-02-27] MEDS: ONDANSETRON HCL 4 MG/2 ML VIAL IVP PRN (09:34)
[2017-02-27] MEDS: VALSARTAN 160 MG TAB PO SCH (09:36)
[2017-02-27] MEDS: CARVEDILOL 12.5 MG TAB PO SCH (09:36)
[2017-02-27] MEDS: metFORMIN HCL 500 MG TAB PO SCH ×2 (09:36→17:21)
[2017-02-27] MEDS: SODIUM CHLORIDE 0.9% FLUSH 10 ML FLUSH IV FLUSH SCH (09:37)
[2017-02-27] MEDS: INSULIN DETEMIR 100 UNITS/ML VIAL SQ SCH (09:37)
[2017-02-27] MEDS: CLOTRIMAZOLE 1% CREAM 15 GM TOPICAL SCH (09:55)
[2017-02-27] MEDS ORDERED: NIFE1TAB86 PO (13:37)
--- NOTE | 2017-02-27 13:38 | HHI.DS ---
Discharge Summary Admission Date Feb 11, 2017 at 09:30 Discharge Date: Feb 27, 2017 Admitting Diagnosis pancreatitis, hypertension (1) Hypertensive urgency ICD Code: I16.0 - Hypertensive urgency (2) Thrombocytopenia ICD Code: D69.6 - Thrombocytopenia, unspecified (3) Pancreatitis ICD Code: K85.90 - Acute pancreatitis without necrosis or infection, unspecified Status: Acute (4) Diabetes mellitus ICD Code: E11.9 - Diabetes mellitus Status: Chronic Procedures None Brief History - From Admission This is a 52 year-old male with past medical history of hypertension who presents to the ER complaining of a 24-36 hour of upper abdominal pain/ chest pain radiating to his interscapular area. The pain started as a dull ache and gradually got more severe. No radiation. He did have one episode of emesis in the emergency department however has not had any other emesis. No palliative or provocative factors. The patient had negative troponin and EKG in the emergency department and pain did not respond to nitroglycerin. However lipase was elevated. Abdominal CT scan showed a hypodense liver consistent with hepatocellular disease however pancreas appeared normal. The patient endorses that he will drink up to a 12 pack of [place] light. He denies any history of withdrawal symptoms. His blood pressure was also markedly elevated in the emergency department requiring multiple doses of IV labetalol and finally a Cardene drip was started. Blood pressure is now 167/86. He states normally his systolic blood pressure ranges from 140-150. His primary care physician is Dr. Hinojosa. The patient complains of headache after the nitroglycerin. CBC/BMP: 02/25/17 1905 Significant Findings Laboratory Tests Test 02/25/17 19:05 Random Glucose 609 MG/DL (74-106) PE at Discharge GENERAL: This is a well-nourished, well-developed patient, in no apparent distress. CARDIOVASCULAR: Regular rate and rhythm without murmurs, gallops, or rubs. RESPIRATORY: Clear to auscultation. Breath sounds equal bilaterally. No wheezes , rales, or rhonchi. GASTROINTESTINAL: Abdomen soft, non-tender, nondistended. Normal active bowel sounds MUSCULOSKELETAL: Extremities without clubbing, cyanosis, or edema. NEURO: Alert & Oriented x4 to person, place, time, situation. Moves all ext x4 Pt update on day of discharge Patient seen today in follow-up for hypertension difficult to control. Blood sugars improved and blood pressures improved also. He did require Cardene drip and then had some possible reaction to hydralazine and this was stopped. Patient was discharged home Hospital Course She was seen and treated for acute pancreatitis with diabetes hypertension. He is expected I's improved however the patient had extremely difficult to control diabetes and hypertension requiring IV medications. Patient did remain in the hospital for several days while attempts to control his blood pressure were made. He was seen in consultation by nephrology. He did not have any clinical evidence of renal artery stenosis. Other evaluations proved unfruitful. Patient did finally have improvement in his blood pressure control. Pt Condition on Discharge: Stable Discharge Disposition: Discharge Home Discharge Time: <= 30 minutes Discharge Instructions DIET: Follow Instructions for: Heart Healthy Diet, Diabetic Diet Additional Diet Instructions: low fat, no alcoholic beverages, no salt diet Activities you can perform: Regular-No Restrictions Follow up Referrals: PCP Follow-up - 3-5 Days New Medications: Alprazolam (Xanax) 0.5 Mg Tab 0.5 MG PO Q6HR PRN for Anxiety, #15 TAB Carvedilol (Coreg) 12.5 Mg Tab 25 MG PO Q12HR for Blood Pressure Management, #62 TAB Clotrimazole Topical (Clotrimazole AF Topical) 1% Cream 1 APPLIC TOPICAL Q12HR for skin infx for 15 Days, TUBE Hydrochlorothiazide (Hydrochlorothiazide) 25 Mg Tab 25 MG PO DAILY for Blood Pressure Management, #30 TAB Hydrocodone-Acetaminophen (Hydrocodone-Acetaminophen) 5-325 mg Tab 1-2 TAB PO Q6HR PRN for pain, #30 TAB Insulin Aspart Inj (Novolog Inj) 100 Unit/Ml Inj 1 UNITS SQ ACHS SLIDING SCALE for dm for 30 Days, INJECTION Insulin Detemir Inj (Levemir Inj) 1,000 unit/ 10 ML Vial 15 UNITS SQ BID for dm for 30 Days, INJECTION Do not mix with any other Insulin. Valsartan (Diovan) 160 Mg Tab 320 MG PO DAILY for htn, #60 TAB Continued Medications: Glyburide-Metformin (Glyburide-Metformin) 2.5-500 Mg Tab 1 TAB PO BID for Blood Sugar Management, #60 TAB 0 Refills Take with a meal Temazepam (Temazepam) 15 Mg Cap 15 MG PO HS PRN for INSOMNIA, #30 CAP 0 Refills Mirlande Diehl MD Feb 27, 2017 13:38
[2017-02-27] MEDS ORDERED: NIFEdipine 60 MG SUSTAINED RELEASE TAB PO SCH (14:00)
[2017-02-27] MEDS ORDERED: CAPTOPRIL 25 MG TAB PO ONE (16:00)
[2017-02-27] MEDS ORDERED: ALPR.25 PO (16:45)
== END 2017-02-27 18:10 | disposition home health service (06) | DRG 304 ==
LOC: PHED 06:20 → PHEDA 09:30 → PHICU 12:45 → PH3A 02-12 18:40 → PHICU 02-26 18:00
PROVIDERS: ADMIT Hospitalist; ATTEND Hospitalist
DX: I16.0 Hypertensive urgency (principal); K85.90 Acute pancreatitis without necrosis or infection, unspecified; D61.818 Other pancytopenia; D69.6 Thrombocytopenia, unspecified; E11.65 Type 2 diabetes mellitus with hyperglycemia; E83.42 Hypomagnesemia; R16.1 Splenomegaly, not elsewhere classified; K76.0 Fatty (change of) liver, not elsewhere classified; E87.6 Hypokalemia; N20.0 Calculus of kidney; I10 Essential (primary) hypertension; F10.20 Alcohol dependence, uncomplicated; Z79.84 Long term (current) use of oral hypoglycemic drugs; R00.1 Bradycardia, unspecified; B35.6 Tinea cruris; G44.40 Drug-induced headache, not elsewhere classified, not intractable; T46.5X5A Adverse effect of other antihypertensive drugs, initial encounter; Y92.239 Unspecified place in hospital as the place of occurrence of the external cause; B35.3 Tinea pedis; Z82.49 Family history of ischemic heart disease and other diseases of the circulatory system; Z80.1 Family history of malignant neoplasm of trachea, bronchus and lung
CPT/HCPCS: 70450; 71010; 74175; 74177; 78452; 80048; 80053; 80061; 80069; 82088; 82384; 82533; 82550; 82552; 82947; 82948; 83036; 83690; 83735; 83835; 84100; 84244; 84443; 84484; 85025; 85610; 85730; 87641; 93005; 93017; 96361; 96374; 96375; A9502; J0360; J1170; J1200; J1650; J1815; J1885; J1940; J2270; J2405; J2785; J3475; J3480; J7030; J7050; Q9967

== ENCOUNTER 2018-04-02 13:39 | Observation (INO) ==
[2018-04-02] MEDS ORDERED: Morphine Inj 4 MG/ML Vial IV.PUSH ONE (14:27)
[2018-04-02] MEDS ORDERED: Diatrizoate Meglum/Diatrizoate Sod Liq 9 ML UDC PO ONE (14:27)
[2018-04-02] MEDS ORDERED: Sod Chloride 0.9% Inj 1,000 ML IV.CONT SCH (14:30)
--- NOTE | 2018-04-02 14:34 | ED ---
HPI General Chief Complaint: Chest Pain Stated Complaint: chest pain Source: patient Mode of arrival: ambulatory Limitations: no limitations History of Present Illness HPI narrative: The patient is a 53-year-old male who presents to the emergency department via private vehicle for nausea, vomiting, constipation, and abdominal pain with distention. The patient states his symptoms started approximately 10 days ago, he has not had a bowel movement for the last 7 days, and now notes increasing abdominal pain and distention. The patient developed nausea and vomiting this morning, was unable to take his antihypertensive medications secondary to the nausea and vomiting. He also complains of abdominal distention with difficulty taking a deep breath which causes pain in the left side of the chest. The patient denies any upper chest pain or shortness of breath. The patient denies any previous abdominal surgeries and has never undergone a colonoscopy. He denies any fever, chills, or sweats. The patient tried eating an apple last night, however, also had nausea and vomiting. Patient does note decreased appetite and p.o. intake over the course of the last week secondary to his current symptoms. MD complaint: Reports abdominal pain Onset (ago): week(s) Pain Consistency: constant Location: Reports diffuse Severity: moderate Severity scale (1-10): 6 Quality: Reports fullness Radiation: Reports none Migration to: Reports no migration Relieving factors: nothing Exacerbating factors: nothing Associated symptoms: Reports nausea, vomiting and constipation Treatments prior to arrival: Reports other Related Data Patient : No Home Medications Medication Instructions Recorded Confirmed metformin 500 mg PO BID 04/02/18 04/02/18 metoprolol ta-hydrochlorothiaz 1 tab PO BID 04/02/18 04/02/18 Allergies Allergy/AdvReac Type Severity Reaction Status Date / Time clonidine Allergy Severe Swelling Verified 04/02/18 13:42 Review of Systems ROS: all other systems reviewed are negative [facility] Medical History Medical History Diabetes (Acute) Surgical History Surgical History History of hip surgery (Acute) Social History Social History Substance History: No History of Abuse Smoking Status: Never smoker How Often Do You Have a Drink Containing Alcohol: Never Recent Travel in [facility] within the Last 8 Weeks: No Recent Out of Country Travel within the Last 8 Weeks: No Immunization History Tetanus Immunization: Unsure Exam Narrative Exam Narrative: GENERAL: Awake, alert, pleasant 53-year-old male who appears his stated age and is in no acute respiratory distress. SKIN: Focused skin assessment warm/dry. HEAD: Atraumatic. Normocephalic. EYES: Pupils equal and round. No scleral icterus. No injection or drainage. ENT: No nasal bleeding or discharge. Mucous membranes pink and moist. NECK: Trachea midline. No JVD. CARDIOVASCULAR: Regular rate and rhythm. No murmur appreciated. Heart rate in the 80s. RESPIRATORY: No accessory muscle use. Clear to auscultation. Breath sounds equal bilaterally. GASTROINTESTINAL: Abdomen distended, tympanic, mild diffuse tenderness. Rectal: No gross blood. No fecal impaction noted. MUSCULOSKELETAL: No obvious deformities. No clubbing. No cyanosis. No edema. Chronic venous stasis changes to lower extremities noted. NEUROLOGICAL: Awake and alert. No obvious cranial nerve deficits. Motor grossly within normal limits. Normal speech. PSYCHIATRIC: Appropriate mood and affect; insight and judgment normal. Course Initial Documented Vital Signs Temperature 98.8 F 04/02/18 13:42 Pulse Rate 106 H 04/02/18 13:42 Respiratory Rate 18 04/02/18 13:42 Blood Pressure 190/122 H 04/02/18 13:42 Pulse Oximetry 97 04/02/18 13:42 Last Documented Vital Signs Temperature 98.8 F 04/02/18 13:42 Pulse Rate 86 04/02/18 15:19 Respiratory Rate 18 04/02/18 15:19 Blood Pressure 169/93 H 04/02/18 15:19 Pulse Oximetry 95 04/02/18 15:19 Medical Decision Making MDM Narrative Medical decision making narrative: IV was established, labs are drawn and sent, and the patient was placed on cardiac telemetry monitoring and continuous pulse oximetry monitoring. EKG was ordered and interpreted. The patient was administered morphine, Zofran, and IV fluids. Upright chest x-ray was obtained. CT of the abdomen and pelvis with IV and oral contrast was ordered to evaluate for obstruction versus ileus. The patient's lipase is mildly elevated, the AST and ALT were noted, bilirubin is elevated. CT of the abdomen and pelvis reveals cirrhosis with significant ascites. I had a discussion with the patient, he denies any history of alcohol abuse. He denies any known history of liver problems and denies any history of ascites or previous paracentesis. The patient states he had an infection approximately 5 years ago after he cut himself with an oyster and was on vancomycin for several months but denies any known history of hepatitis A, hepatitis B, or hepatitis C. The patient does have new onset significant ascites and will require therapeutic/ diagnostic paracentesis as well as workup for possible underlying cirrhotic causes. The patient's primary physician is Dr. Hinojosa, therefore, the on- call medical service was paged for admission. Medical Screen Exam Complete: Yes Emergency Medical Condition: Yes Differential Diagnosis Differential Diagnosis: Differential diagnosis includes volvulus, obstruction, partial small bowel obstruction, large bowel obstruction, ileus, constipation, fecal impaction, IV fluids. Lab Data Lab results reviewed: Yes I reviewed the patient's lab results. Result diagrams: 04/02/18 14:40 04/02/18 14:40 Lab Results 04/02/18 04/02/18 04/02/18 Range/Units 14:40 14:40 14:40 CBC w Diff Auto diff final WBC 4.8 (4.0-11.0) th/mm3 RBC 3.83 L (4.50-5.90) mil/mm3 Hgb 13.3 (13.0-17.0) gm/dL Hct 40.2 (39.0-51.0) % MCV 105.0 H (80.0-100.0) fL MCH 34.8 H (27.0-34.0) pg MCHC 33.1 (32.0-36.0) % RDW 12.4 (11.6-17.2) % Plt Count 116 L (150-450) th/mm3 MPV 7.8 (7.0-11.0) fL Neut % (Auto) 62.0 (16.0-70.0) % Lymph % (Auto) 21.3 (9.0-44.0) % Blair % (Auto) 13.9 H (0.0-8.0) % Eos % (Auto) 2.1 (0.0-4.0) % Baso % (Auto) 0.7 (0.0-2.0) % Neut # (Auto) 3.0 (1.8-7.7) th/mm3 Lymph # (Auto) 1.0 (1.0-4.8) th/mm3 Blair # (Auto) 0.7 (0.0-0.9) th/mm3 Eos # (Auto) 0.1 (0.0-0.4) th/mm3 Baso # (Auto) 0.0 (0.0-0.2) th/mm3 WBC Differential . Differential Comment . Sodium 134 L (136-145) meq/L Potassium 3.3 L (3.5-5.1) meq/L Chloride 93 L (98-107) meq/L Carbon Dioxide 34.3 H (21.0-32.0) meq/L Anion Gap 7 (5-15) meq/L BUN 17 (7-18) mg/dL Creatinine 1.40 H (0.60-1.30) mg/dL Estimated GFR 53 L (>89) mL/min Random Glucose 134 H (74-106) mg/dL Lactic Acid 1.4 (0.4-2.0) mmol/L Calcium 8.2 L (8.5-10.1) mg/dL Magnesium 1.7 (1.5-2.5) mg/dL Total Bilirubin 2.8 H (0.2-1.0) mg/dL AST 69 H (15-37) U/L ALT 31 (12-78) U/L Alkaline Phosphatase 157 H (45-117) U/L Total Creatine Kinase 123 (39-308) U/L CK-MB (CK-2) Less than 1.0 (0.5-3.6) ng/mL Troponin I Less than 0.02 L (0.02-0.05) ng/mL Total Protein 8.5 H (6.4-8.2) g/dL Albumin 2.4 L (3.4-5.0) g/dL Lipase 626 H (73-393) U/L Imaging Data Radiologist's impression: Abdomen/Pelvis CT 04/02/18 14:27 CONCLUSION: 1. Chronic liver disease with CT findings now consistent with cirrhosis. 2. Large ascites has developed. 3. Distended gallbladder, nonspecific but not uncommonly seen in the setting of chronic liver disease. No wall thickening/inflammatory changes are demonstrated. 4. Splenomegaly, not new. Portal vein appears patent. Main portal vein measures approximately 1.6 cm maximum. 5. No obstruction or focal inflammatory changes are demonstrated of the gastrointestinal tract. 6. Mild right lung base atelectasis. 7. Old rib and pelvic fractures. Chest X-Ray 11/22/18 14:27 CONCLUSION: Small lung volumes with mild bibasilar atelectasis. ECG Data EKG Prior to Arrival: No Attestation: I personally reviewed and interpreted this ECG as follows: Interpretation: EKG reveals normal sinus rhythm with a rate of 9 Q waves noted in lead V1 and V2. Inverted T wave in lead III. Discharge Plan Discharge Disposition Patient Disposition: 30 Still Patient Discharge Condition Condition: Stable Discharge Details Diagnosis: Ascites, Cirrhosis Physicians Team ED Provider: Cristian Valle Primary Care Provider: Pal Hinojosa Rxs /Orders / Referrals /Forms Prescriptions: No Action metformin 500 mg Tablet 500 mg PO BID RF: 0 metoprolol ta-hydrochlorothiaz 100-25 mg Tablet 1 tab PO BID RF: 0 Discharge Instructions Patient Printed Instructions: Chest Pain (ED) Status ED Status: Admitted Observation Patient
[2018-04-02 14:49] LABS: Baso % (Auto) 0.7 % (0.0-2.0); Eos # (Auto) 0.1 th/mm3 (0.0-0.4); Eos % (Auto) 2.1 % (0.0-4.0); Hematocrit 40.2 % (39.0-51.0); Hemoglobin 13.3 gm/dL (13.0-17.0); Lymph % (Auto) 21.3 % (9.0-44.0); Mean Corpuscular HGB Conc 33.1 % (32.0-36.0); Mean Corpuscular Hemoglobin 34.8 pg (27.0-34.0); Mean Platelet Volume 7.8 fL (7.0-11.0); Mono # (Auto) 0.7 th/mm3 (0.0-0.9); Mono % (Auto) 13.9 % (0.0-8.0); Platelet Count 116 th/mm3 (150-450); Red Blood Count 3.83 mil/mm3 (4.50-5.90); Red Cell Distribution Width 12.4 % (11.6-17.2); White Blood Count 4.8 th/mm3 (4.0-11.0)
[2018-04-02 15:06] LABS: Chloride 93 meq/L (98-107); Potassium 3.3 meq/L (3.5-5.1); Sodium 134 meq/L (136-145)
[2018-04-02 15:09] LABS: Calcium 8.2 mg/dL (8.5-10.1)
[2018-04-02 15:10] LABS: Albumin 2.4 g/dL (3.4-5.0); Anion Gap 7 meq/L (5-15); Blood Urea Nitrogen 17 mg/dL (7-18); Carbon Dioxide 34.3 meq/L (21.0-32.0); Glucose,Random 134 mg/dL (74-106); Lipase 626 U/L (73-393); Magnesium 1.7 mg/dL (1.5-2.5)
--- NOTE | 2018-04-02 15:10 | XR ---
EXAM DATE: 04/02/2018 3:04 PM EST AGE/SEX: 53 years / Male INDICATIONS: Chest pain, abdominal distention, nausea, vomiting. CLINICAL DATA: This is the patient's initial encounter. Patient reports that signs and symptoms have been present for 1 day and indicates a pain score of 6/10. MEDICAL/SURGICAL HISTORY: Diabetes. . Hip surgery. COMPARISON: [facility], CHEST SINGLE AP, 02/11/2017. . FINDINGS: Small lung volumes with trace bibasilar atelectasis. No pneumonia seen. No pleural effusion or pneumo thorax. Normal, stable heart size. CONCLUSION: Small lung volumes with mild bibasilar atelectasis. Electronically signed by: Rom Pittman MD 04/02/2018 3:09 PM EST
[2018-04-02 15:12] LABS: Alanine Aminotransferase 31 U/L (12-78)
[2018-04-02 15:13] LABS: Aspartate Aminotransferase 69 U/L (15-37); Glomerular Filtration Rate 53 mL/min (>89)
[2018-04-02 15:14] LABS: Total Protein 8.5 g/dL (6.4-8.2)
[2018-04-02 15:15] LABS: Alkaline Phosphatase 157 U/L (45-117); Creatine Kinase 123 U/L (39-308)
--- NOTE | 2018-04-02 16:46 | CT ---
EXAM DATE: 04/02/2018 4:33 PM EST AGE/SEX: 53 years / Male INDICATIONS: Diffuse abdominal pain and bloating for ten days. Constipation for one week. CLINICAL DATA: This is the patient's initial encounter. Patient reports that signs and symptoms have been present for 1 week and indicates a pain score of 4/10. MEDICAL/SURGICAL HISTORY: Diabetes. None. ORAL CONTRAST: Partial prescribed oral contrast ingested. RADIATION DOSE: 18.94 CTDI (mGy) COMPARISON: [facility], CT ABDOMEN & PELVIS W CONTRAST, 02/11/2017. . TECHNIQUE: Multiple contiguous axial images were obtained through the abdomen and pelvis following b olus infusion of 96 ml Omnipaque 350 (iohexol) nonionic water-soluble contrast as a single exam dos e. Partial prescribed oral contrast ingested. Using automated exposure control and adjustment of the mA and/or kV according to patient size, radiation dose was kept as low as reasonably achievable to o btain optimal diagnostic quality images. DICOM format image data is available electronically for rev iew and comparison. FINDINGS: Liver is much smaller than before and now has a nodular surface typical of cirrhosis. A large amount of diffuse ascites is now present as well. Spleen measures 20.6 cm craniocaudal, actually slightly im proved. No focal hepatic or splenic lesions are demonstrated. Nonspecific distention of the gallbladder. No wall thickening. No perceptible stones. No obstruction or focal inflammatory changes are seen of the gastrointestinal tract. Pancreas, adrenal glands and kidneys are within normal limits. Trace atelectasis of the visualized right lung base. No acute bony abnormalities are demonstrated. There are old, healed bilateral rib fractures. Also old , healed fractures of the right superior and inferior pubic rami. CONCLUSION: 1. Chronic liver disease with CT findings now consistent with cirrhosis. 2. Large ascites has developed. 3. Distended gallbladder, nonspecific but not uncommonly seen in the setting of chronic liver diseas e. No wall thickening/inflammatory changes are demonstrated. 4. Splenomegaly, not new. Portal vein appears patent. Main portal vein measures approximately 1.6 cm maximum. 5. No obstruction or focal inflammatory changes are demonstrated of the gastrointestinal tract. 6. Mild right lung base atelectasis. 7. Old rib and pelvic fractures. Electronically signed by: Rom Pittman MD 04/02/2018 4:44 PM EST
[2018-04-02 17:59] LABS: INR 1.3 Ratio; Prothrombin Time 13.6 sec (9.8-11.6)
[2018-04-02] MEDS: Albumin Human 25% Inj 50 ML IV.SIG SCH (18:39)
[2018-04-02] MEDS: Morphine Sulfate 15 MG IR Tablet PO PRN (19:33)
[2018-04-02 21:37] LABS: Hepatitits B Surface Antigen Nonreactive (Nonreactive)
[2018-04-02 23:33] LABS: Hepatitis A IgM Antibody Nonreactive (Nonreactive)
[2018-04-03] MEDS ORDERED: LORazepam 1 MG Tablet PO PRN (00:41)
[2018-04-03] MEDS ORDERED: Haloperidol Inj 5 MG/ML Ampul IV.PUSH PRN (00:41)
[2018-04-03] MEDS ORDERED: HYDROCHLOROTHIAZIDE PO SCH (00:45)
[2018-04-03] MEDS ORDERED: [UNRECOGNIZED DRUG - OTHER] PO SCH (00:45)
[2018-04-03] MEDS ORDERED: METOPROLOL TARTRATE PO SCH (00:45)
[2018-04-03] MEDS: hydroCHLOROthiazide 25 MG Tablet PO SCH ×2 (01:36→08:13)
[2018-04-03] MEDS: Metoprolol Tartrate 100 MG Tablet PO SCH ×3 (01:36→21:24)
[2018-04-03] MEDS: Morphine Sulfate 15 MG IR Tablet PO PRN ×2 (01:43→08:16)
[2018-04-03] MEDS: Albumin Human 25% Inj 50 ML IV.SIG SCH ×2 (05:46→17:09)
[2018-04-03 06:47] LABS: Chloride 95 meq/L (98-107); Potassium 3.5 meq/L (3.5-5.1); Sodium 134 meq/L (136-145)
[2018-04-03 06:50] LABS: Calcium 7.8 mg/dL (8.5-10.1)
[2018-04-03 06:51] LABS: Albumin 2.4 g/dL (3.4-5.0); Anion Gap 5 meq/L (5-15); Blood Urea Nitrogen 16 mg/dL (7-18); Carbon Dioxide 34.5 meq/L (21.0-32.0); Glucose,Random 96 mg/dL (74-106)
[2018-04-03 06:54] LABS: Alanine Aminotransferase 26 U/L (12-78); Aspartate Aminotransferase 56 U/L (15-37); Glomerular Filtration Rate 53 mL/min (>89)
[2018-04-03 06:55] LABS: Total Protein 7.7 g/dL (6.4-8.2)
[2018-04-03 06:57] LABS: Alkaline Phosphatase 126 U/L (45-117)
[2018-04-03] MEDS: Folic Acid 1 MG Tablet PO SCH (08:12)
[2018-04-03] MEDS: Multivitamin/Minerals Therapeutic Tablet PO SCH (08:13)
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
--- NOTE | 2018-04-03 10:19 | US ---
EXAM DATE: 04/03/2018 10:11 AM EST AGE/SEX: 53 years / Male INDICATIONS: Ascites. CLINICAL DATA: This is the patient's subsequent encounter. Patient reports that signs and symptoms h ave been present for 4 - 6 days and indicates a pain score of 5/10. MEDICAL/SURGICAL HISTORY: . Diabetic. . Hip surgery. COMPARISON: [facility], CT ABDOMEN & PELVIS W CONTRAST, 04/02/2018. . FLUID: Total volume of 4600 cc of clear, yellow fluid was removed. Fluid was sent to lab for ordered studies . . . TECHNIQUE: Ultrasound guidance for abdominal paracentesis. Paracentesis. The risks, benefits, and alternatives to ultrasound guided paracentesis were explained to the patient in detail including the risk of bleeding and infection. Written and verbal informed consent was obt ained. With the patient on the ultrasound table, ultrasound imaging was used to select the most appropriate approach for paracentesis. Overlying skin was prepped and draped in the usual sterile fashion and wi th a local anesthetic, a dermatotomy was made with an 11 blade scalpel. A 6 [place] [employer]-cwbsjnte ca theter was introduced into the peritoneal cavity and fluid was collected. Post procedure scanning reveals no hematoma or other complication. The patient tolerated the procedu re well and left the ultrasound suite in stable condition. FINDINGS: Adequate fluid for paracentesis. CONCLUSION: 1. Uncomplicated paracentesis. Electronically signed by: Antwon Sanchez MD 04/03/2018 10:18 AM EST
[2018-04-03 10:21] LABS: RBC,Peritoneal Fluid 82 /mm3 (0-0)
[2018-04-03 10:27] LABS: Eosinophils,Peritoneal Fluid 1 %; Neutrophils,Peritoneal Fluid 4 %
[2018-04-03] MEDS ORDERED: Famotidine PF Inj 20 MG/2 ML Vial IV.PUSH ONE (10:28)
[2018-04-03 13:20] LABS: % Iron Saturation 43.9 % (20-50)
[2018-04-03 13:22] LABS: Total Protein,Peritoneal Fluid 2.1 gm/dL
--- NOTE | 2018-04-03 15:52 | ECHRPT ---
Indication: Heart Failure CONCLUSIONS Normal left ventricular size. Mild concentric left ventricular hypertrophy. The left ventricular systolic function is normal with an estimated ejection fraction in the range of 55-60%. The left atrial size is mildly dilated. Trace mitral valve regurgitation. Mitral annular calcification is present. Aortic valve sclerosis is present. There is trace tricuspid valve regurgitation. The estimated pulmonary arterial pressure is 50 mmHg. There is a small pericardial effusion present. BP: / HR: Rhythm: MEASUREMENTS (Male / Female) Normal Values Technical Quality:Fair 2D ECHO LV Diastolic Diameter PLAX 4.6 cm 4.2 - 5.9 / 3.9 - 5.3 cm LV Systolic Diameter PLAX 2.9 cm IVS Diastolic Thickness 1.2 cm 0.6 - 1.0 / 0.6 - 0.9 cm LVPW Diastolic Thickness 1.2 cm 0.6 - 1.0 / 0.6 - 0.9 cm LV Relative Wall Thickness 0.5 RV Internal Dim ED PLAX 3.1 cm LVOT Diameter 2.4 cm Aortic Root Diameter 3.0 cm LA Systolic Diameter LX 4.6 cm 3.0 - 4.0 / 2.7 - 3.8 cm M-MODE AV Cusp Separation MM 2.1 cm DOPPLER AV Peak Velocity 176.0 cm/s AV Peak Gradient 12.4 mmHg LVOT Peak Velocity 130.0 cm/s LVOT Peak Gradient 6.8 mmHg AV Area Cont Eq pk 3.3 cm Mitral E Point Velocity 67.1 cm/s Mitral A Point Velocity 102.0 cm/s Mitral E to A Ratio 0.7 LV E' Lateral Velocity 10.2 cm/s Mitral E to LV E' Lateral Ratio 6.6 LV E' Septal Velocity 6.7 cm/s Mitral E to LV E' Septal Ratio 10.0 TR Peak Velocity 319.0 cm/s TR Peak Gradient 40.7 mmHg Right Atrial Pressure 10.0 mmHg Pulmonary Artery Systolic Pressu 50.7 mmHg Right Ventricular Systolic Press 50.7 mmHg PV Peak Velocity 124.0 cm/s PV Peak Gradient 6.2 mmHg FINDINGS LEFT VENTRICLE Normal left ventricular size. Mild concentric left ventricular hypertrophy. The left ventricular systolic function is normal with an estimated ejection fraction in the range of 55-60%. RIGHT VENTRICLE Normal right ventricular size and systolic function. LEFT ATRIUM The left atrial size is mildly dilated. RIGHT ATRIUM The right atrial size is normal. ATRIAL SEPTUM Normal atrial septal thickness without atrial level shunting by limited color doppler interrogation. AORTA The aortic root and proximal ascending aorta are normal in size on limited imaging. MITRAL VALVE Trace mitral valve regurgitation. Mitral annular calcification is present. AORTIC VALVE Trileaflet aortic valve. Aortic valve sclerosis is present. TRICUSPID VALVE There is trace tricuspid valve regurgitation. The estimated pulmonary arterial pressure is 50 mmHg. PULMONARY VALVE No pulmonary valve regurgitation or stenosis. VESSELS The inferior vena cava was not well visualized. PERICARDIUM There is a small pericardial effusion present. Mike Sheffield MD, FACC, [facility] [place] (Electronically Signed) Final Date:03 April 2018 15:51
[2018-04-03] MEDS ORDERED: Methylnaltrexone Inj 12 MG/0.6 ML Vial SQ ONE (17:00)
--- NOTE | 2018-04-03 18:32 | ECG ---
Date Performed: 04/02/2018 Time Performed: 13:54:47 PTAGE: 53 years EKG: Sinus rhythm SEPTAL MYOCARDIAL INFARCTION Compared to previous tracing, anteroseptal infarct is new Clinical jovana elation is recommended ABNORMAL ECG PREVIOUS TRACING : 02/11/2017 06.38 DOCTOR: Manuel Valera Interpretating Date/Time 04/03/2018 18:29:59
[2018-04-03 21:47] LABS: Bilirubin,Urine Negative (Negative); Clarity,Urine Clear (Clear); Glucose,Urine (UA) 250 mg/dL (Negative); Leukocyte Esterase,Urine Negative (Negative); Nitrite,Urine Negative (Negative); PH,Urine 5.5 (5.0-8.5); Urobilinogen,Urine 0.2 mg/dL (Less than 2)
[2018-04-03 21:48] LABS: Color,Urine Dark-Yellow (Yellw/Straw)
[2018-04-03 21:52] LABS: Amorphous Sediment,Urine Few /hpf; Bacteria,Urine Rare /hpf
[2018-04-03 21:53] LABS: Mucus,Urine Few /lpf (Occasional)
[2018-04-04] MEDS: Albumin Human 25% Inj 50 ML IV.SIG SCH (05:52)
[2018-04-04] MEDS: Metoprolol Tartrate 100 MG Tablet PO SCH (08:27)
[2018-04-04] MEDS: Multivitamin/Minerals Therapeutic Tablet PO SCH (08:27)
[2018-04-04] MEDS: Folic Acid 1 MG Tablet PO SCH (08:27)
[2018-04-04 09:59] LABS: Chloride 92 meq/L (98-107); Potassium 3.5 meq/L (3.5-5.1); Sodium 133 meq/L (136-145)
[2018-04-04 10:02] LABS: Calcium 7.6 mg/dL (8.5-10.1)
[2018-04-04 10:03] LABS: Albumin 2.6 g/dL (3.4-5.0); Anion Gap 9 meq/L (5-15); Carbon Dioxide 32.2 meq/L (21.0-32.0)
[2018-04-04 10:16] LABS: Alanine Aminotransferase 25 U/L (12-78); Alkaline Phosphatase 125 U/L (45-117); Aspartate Aminotransferase 48 U/L (15-37); Blood Urea Nitrogen 29 mg/dL (7-18); Glomerular Filtration Rate 33 mL/min (>89); Glucose,Random 235 mg/dL (74-106); Total Protein 7.4 g/dL (6.4-8.2)
--- NOTE | 2018-04-04 11:11 | P.PN ---
Subjective Interval history: Nursing denies any deterioration since last night. Patient says that he did have a bowel movement with the enema and then another bowel movement afterwards. Says he feels much better today overall. Physical Exam Vital signs: Vital Signs 04/03/18 12:00 04/03/18 16:00 04/03/18 20:00 Temperature 99.1 F 98.4 F 96.2 F L Pulse Rate 59 L 59 L 74 Respiratory Rate 18 18 18 Blood Pressure 123/66 129/68 158/84 H Pulse Oximetry 96 96 92 L 04/03/18 20:09 04/04/18 00:00 04/04/18 00:45 Temperature 98.4 F Pulse Rate 69 64 62 Respiratory Rate 18 Blood Pressure 167/87 H Pulse Oximetry 95 04/04/18 04:00 04/04/18 05:38 04/04/18 08:00 Temperature 97.5 F L 96.5 F L Pulse Rate 62 60 60 Respiratory Rate 18 18 Blood Pressure 178/89 H 174/84 H Pulse Oximetry 96 97 Intake & Output 04/03/18 04/04/18 04/04/18 18:59 06:59 18:59 Intake Total 100 / 100 480 / 480 50 / 50 Output Total 500 / 500 Balance 100 / 100 -20 / -20 50 / 50 Weight 103.6 kg Intake: IV 100 / 100 50 / 50 Flexbumin 25% Inj 50 ML @ 60 100 / 100 50 / 50 mls/hr IV.SIG Q12H ROSY Rx#: [id number] Oral 480 / 480 Output: Urine 500 / 500 Other: # Voids 5 Date of Last Bowel Movement 04/03/18 04/03/18 # Bowel Movements 1 Narrative: Heart sounds regular rate and rhythm, no murmurs Clear lungs bilaterally, labored breathing Mildly distended abdomen which is soft otherwise, nontender No lower extremity edema Mild jaundice Results - Labs CBC & Chem 7: 04/02/18 14:40 04/04/18 09:20 Laboratory Results - last 24 hr 04/03/18 04/03/18 04/03/18 09:05 10:15 21:30 Sodium Potassium Chloride Carbon Dioxide Anion Gap BUN Creatinine Estimated GFR Random Glucose Calcium Iron 102 TIBC 232 L % Saturation 43.9 Total Bilirubin AST ALT Alkaline Phosphatase Total Protein Albumin Urine Color Dark-yellow H Urine Clarity Clear Urine pH 5.5 Ur Specific [place] 1.010 Urine Protein Negative Urine Glucose (UA) 250 H Urine Ketones Negative Urine Occult Blood Moderate H Urine Nitrate Negative Urine Bilirubin Negative Urine Urobilinogen 0.2 Ur Leukocyte Esterase Negative Urine RBC 4-15 H Amorphous Sediment Few H Urine Bacteria Rare H Hyaline Casts 4-10 H Urine Mucus Few H Micro UA Comment Culture not ind Ur Microscopic Review Microscopic reviewed Urine Culture Comments Culture not ind Peritoneal Tot Protein 2.1 Peritoneal Albumin 0.7 04/04/18 09:20 Sodium 133 L Potassium 3.5 Chloride 92 L Carbon Dioxide 32.2 H Anion Gap 9 BUN 29 H Creatinine 2.10 H Estimated GFR 33 L Random Glucose 235 H D Calcium 7.6 L Iron TIBC % Saturation Total Bilirubin 2.9 H AST 48 H ALT 25 Alkaline Phosphatase 125 H Total Protein 7.4 Albumin 2.6 L Urine Color Urine Clarity Urine pH Ur Specific [place] Urine Protein Urine Glucose (UA) Urine Ketones Urine Occult Blood Urine Nitrate Urine Bilirubin Urine Urobilinogen Ur Leukocyte Esterase Urine RBC Amorphous Sediment Urine Bacteria Hyaline Casts Urine Mucus Micro UA Comment Ur Microscopic Review Urine Culture Comments Peritoneal Tot Protein Peritoneal Albumin Assessment and Plan - Plan 53-year-old white male being admitted for abdominal distention Abdominal distention Echo unremarkable Likely secondary to liver disease, status post paracentesis with improvement, 4 L drained Hepatic insufficiency w/ cirrhosis ascites -INR of 1.3, w/ bilirubin 2.8, hepatitis profile is negative, suspect ETOH liver -Autoimmune lab workup initiated, including smooth muscle antibodies, mitochondrial antibodies, ceruloplasmin, SAUD -GI following Acute on chronic renal impairment - possibly 2/2 third spacing vs hepatorenal syndrome - hold lasix, trend BMP Hypertension home metoprolol Patient reports having diarrhea social emergencies for which he feels that he has to leave the hospital. I informed him that his renal function would get worse and that my medical plan of care would be for him to stay another night first to see improvement in his renal function. Patient leaving AMA.
--- NOTE | 2018-04-04 12:49 | MB ---
cc: Lucretia Benton MD DATE: 04/04/2018 TYPE OF CONSULTATION: GI consult. REASON FOR CONSULTATION: Management of ascites. HISTORY OF PRESENT ILLNESS: This is a 53-year-old male patient, who was admitted to the hospital with progressive abdominal distention and constipation. He self-managed himself with laxatives for his constipation, and despite his bowel movements his abdomen continued to be distended. He came to the emergency room and was found to have ascites. A paracentesis was performed and the fluid was sent for analysis, which was compatible with portal hypertension. Also, imaging study showing a nodular liver suggestive of cirrhosis with splenomegaly. GI consulted for further evaluation. The patient himself denies alcohol use, although several years ago he used alcohol excessively. He denies any risk factors for viral hepatitis or traveling abroad. He denies any family history of liver disease or cirrhosis. At the current time, the patient is asymptomatic, feeling better. Had a bowel movement with lactulose and requesting to go home. His workup so far revealed no evidence of viral hepatitis, but autoimmune markers still pending. REVIEW OF SYSTEMS: All review of systems are negative, except for history of present illness. PAST MEDICAL HISTORY: Unremarkable. PAST SURGICAL HISTORY: Hip surgery. FAMILY HISTORY: Brother had colon cancer. MEDICATIONS: 1. Currently on folic acid. 2. Haldol p.r.n. 3. Albumin infusion. 4. Lorazepam p.r.n. 5. Metoprolol. 6. Multivitamins. 7. Thiamine. ALLERGIES: CLONIDINE. PHYSICAL EXAMINATION: GENERAL: The patient found to be comfortable, not in distress. VITAL SIGNS: Hemodynamically stable with normal temperature normal and normal vital signs. HEAD AND NECK: Normocephalic, atraumatic. Pupils equal, round, reactive to light. NECK: Supple neck. No lymphadenopathy. No thyromegaly. CHEST: Clear to auscultation bilaterally. No crackles or wheezes. HEART: Regular rate and rhythm. No murmurs. ABDOMEN: Status post paracentesis. No ascites at the current time and no hepatosplenomegaly. EXTREMITIES: Normal pulses. No edema. NEUROLOGIC: Nonfocal. Alert and oriented. Cranial nerves grossly intact. SKIN: No rashes. ASSESSMENT AND PLAN: A 53-year-old male patient with the following problems: 1. New-onset ascites with fluid analysis, suggestive of portal hypertension and high SAAG. 2. Lab tests suggestive of synthetic abnormality of the liver and increasing liver enzymes. 3. Splenomegaly and thrombocytopenia during the workup. 4. Remote history of alcohol abuse. 5. Positive family history of colorectal cancer in his brother and no previous endoscopic evaluation for the patient himself. PLAN: We will continue workup for chronic liver disease. Check the autoimmune markers, ceruloplasmin, and ferritin level. Will start low-dose Lasix 20 mg daily and Aldactone 25 mg daily. The patient advised to follow a low-salt, low-fluid diet. The patient requesting to follow up in the office since he cannot stay in the hospital at the current time. We will need to schedule upper endoscopy for portal hypertension staging and screening colonoscopy since age is above 50 with family history of colorectal cancer in his brother and his brother. Further recommendation to follow. Thank you for the consult. MD TAY Guadalupe/jesse , 11:18 AM , 11:27 AM
[2018-04-04 14:15] LABS: Smooth Muscle Total Auto Abs Negative (Negative)
[2018-04-04 17:52] LABS: Ceruloplasmin 34 mg/dL (18-36)
[2018-04-06 03:52] LABS: DS DNA Ab (Crithidia) NEGATIVE (NEGATIVE)
== END 2018-04-04 12:03 | disposition left against medical advice (07) ==
LOC: PHEDA 13:39 → PHED 13:39 → PHEDA 18:18 → PH3 18:19
PROVIDERS: ADMIT Hospitalist; ATTEND Hospitalist
DX: E11.40 Type 2 diabetes mellitus with diabetic neuropathy, unspecified; K74.60 Unspecified cirrhosis of liver; N28.9 Disorder of kidney and ureter, unspecified; K59.00 Constipation, unspecified; R07.9 Chest pain, unspecified; Z80.0 Family history of malignant neoplasm of digestive organs; I10 Essential (primary) hypertension; R18.8 Other ascites; E11.9 Type 2 diabetes mellitus without complications; I87.8 Other specified disorders of veins; R11.2 Nausea with vomiting, unspecified; K76.6 Portal hypertension; Z79.84 Long term (current) use of oral hypoglycemic drugs; R14.0 Abdominal distension (gaseous)

== ENCOUNTER 2018-04-04 14:37 | Observation (INO) ==
--- NOTE | 2018-04-04 16:03 | ED ---
HPI General Chief Complaint: Abdominal Pain Stated Complaint: GI Problem Time Seen by Provider: 04/04/18 15:43 Source: patient Mode of arrival: ambulatory Limitations: no limitations History of Present Illness HPI narrative: Patient was admitted here from the until this morning when he signed out AMA due to stress and altered mental status of his mother. Patient was scheduled for colonoscopy and also renal failure evaluation. Patient had abdominal pain and distention and had paracentesis to reduce pain and discomfort. Patient reportedly told thread singer that he would come back after he sorted things out for his mother. Related Data Home Medications Medication Instructions Recorded Confirmed metformin 500 mg PO BID 04/02/18 04/04/18 metoprolol ta-hydrochlorothiaz 1 tab PO BID 04/02/18 04/04/18 Allergies Allergy/AdvReac Type Severity Reaction Status Date / Time carvedilol Allergy Severe skin Verified 04/04/18 14:45 peeling to hands and feet clonidine Allergy Severe Swelling Verified 04/04/18 14:44 Review of Systems ROS: all other systems reviewed are negative [facility] Medical History Medical History History of abdominal paracentesis (Acute) Hypertension (Acute) Diabetes (Acute) Surgical History Surgical History History of hip surgery (Acute) Family History Family History Brother Colon cancer Social History Social History Substance History: No History of Abuse Second Hand Smoke Exposure: No Smoking Status: Never smoker How Often Do You Have a Drink Containing Alcohol: Never Immunization History Tetanus Immunization: <5 Years Exam Narrative Exam Narrative: GENERAL: Alert and oriented SKIN: Focused skin assessment warm/dry. HEAD: Atraumatic. Normocephalic. EYES: Pupils equal and round. No scleral icterus. No injection or drainage. ENT: No nasal bleeding or discharge. Mucous membranes pink and moist. NECK: Trachea midline. No JVD. CARDIOVASCULAR: Regular rate and rhythm. No murmur appreciated. RESPIRATORY: No accessory muscle use. Clear to auscultation. Breath sounds equal bilaterally. GASTROINTESTINAL: Abdomen soft, non-tender, nondistended. Hepatic and splenic margins not palpable. Patient has vague discomfort to lateral abdomens bilaterally with no guarding or rigidity. MUSCULOSKELETAL: No obvious deformities. No clubbing. No cyanosis. No edema. PSYCHIATRIC: Appropriate mood and affect; insight and judgment normal. Course Initial Documented Vital Signs Temperature 99.0 F 04/04/18 14:39 Pulse Rate 64 04/04/18 14:39 Respiratory Rate 16 04/04/18 14:39 Blood Pressure 155/83 H 04/04/18 14:39 Pulse Oximetry 96 04/04/18 14:39 Last Documented Vital Signs Temperature 98.3 F 04/04/18 20:00 Pulse Rate 67 04/04/18 20:00 Respiratory Rate 20 04/04/18 20:00 Blood Pressure 161/82 H 04/04/18 20:00 Pulse Oximetry 93 L 04/04/18 20:00 Medical Decision Making MDM Narrative Medical decision making narrative: Patient signed out AGAINST MEDICAL ADVICE earlier this morning. However stated to his attending and also thread singer that he would return for readmission after he had taking care of his mom. Case discussed with Dr. Sanchez and patient admitted for continued care. No acute changes Medical Screen Exam Complete: Yes Emergency Medical Condition: Yes Lab Data Result diagrams: 04/04/18 16:00 04/04/18 16:00 Lab Results 04/04/18 04/04/18 04/04/18 Range/Units 16:00 16:00 21:34 CBC w Diff Auto diff final WBC 11.2 H (4.0-11.0) th/mm3 RBC 3.56 L (4.50-5.90) mil/mm3 Hgb 12.6 L (13.0-17.0) gm/dL Hct 36.7 L (39.0-51.0) % MCV 103.0 H (80.0-100.0) fL MCH 35.5 H (27.0-34.0) pg MCHC 34.4 (32.0-36.0) % RDW 12.4 (11.6-17.2) % Plt Count 123 L (150-450) th/mm3 MPV 8.2 (7.0-11.0) fL Neut % (Auto) 80.6 H (16.0-70.0) % Lymph % (Auto) 10.0 (9.0-44.0) % [place] % (Auto) 9.1 H (0.0-8.0) % Eos % (Auto) 0.0 (0.0-4.0) % Baso % (Auto) 0.3 (0.0-2.0) % Neut # (Auto) 9.1 H (1.8-7.7) th/mm3 Lymph # (Auto) 1.1 (1.0-4.8) th/mm3 [place] # (Auto) 1.0 H (0.0-0.9) th/mm3 Eos # (Auto) 0.0 (0.0-0.4) th/mm3 Baso # (Auto) 0.0 (0.0-0.2) th/mm3 WBC Differential . Differential Comment . Sodium 132 L (136-145) meq/L Potassium 3.4 L (3.5-5.1) meq/L Chloride 91 L (98-107) meq/L Carbon Dioxide 32.6 H (21.0-32.0) meq/L Anion Gap 8 (5-15) meq/L BUN 30 H (7-18) mg/dL Creatinine 2.10 H (0.60-1.30) mg/dL Estimated GFR 33 L (>89) mL/min POC Glucose 336 H (68-110) mg/dl Random Glucose 213 H (74-106) mg/dL Calcium 8.1 L (8.5-10.1) mg/dL Total Bilirubin 2.6 H (0.2-1.0) mg/dL AST 54 H (15-37) U/L ALT 27 (12-78) U/L Alkaline Phosphatase 140 H (45-117) U/L Total Protein 8.1 D (6.4-8.2) g/dL Albumin 2.7 L (3.4-5.0) g/dL Lipase 1059 H (73-393) U/L Discharge Plan Discharge Disposition Patient Disposition: 30 Still Patient Physicians Team ED Provider: Ehsan Last Primary Care Provider: Pal Hinojosa Attending Provider: Emilio Casas Other Providers: Easton Nunez Status ED Status: Left Department Discharge Information Discharge Date/Time: 04/04/18 17:38
[2018-04-04 16:10] LABS: Baso % (Auto) 0.3 % (0.0-2.0); Hematocrit 36.7 % (39.0-51.0); Hemoglobin 12.6 gm/dL (13.0-17.0); Lymph # (Auto) 1.1 th/mm3 (1.0-4.8); Mean Corpuscular HGB Conc 34.4 % (32.0-36.0); Mean Corpuscular Hemoglobin 35.5 pg (27.0-34.0); Mean Platelet Volume 8.2 fL (7.0-11.0); Mono % (Auto) 9.1 % (0.0-8.0); Neut # (Auto) 9.1 th/mm3 (1.8-7.7); Neut % (Auto) 80.6 % (16.0-70.0); Platelet Count 123 th/mm3 (150-450); Red Blood Count 3.56 mil/mm3 (4.50-5.90); Red Cell Distribution Width 12.4 % (11.6-17.2); White Blood Count 11.2 th/mm3 (4.0-11.0)
[2018-04-04 16:18] LABS: Chloride 91 meq/L (98-107); Potassium 3.4 meq/L (3.5-5.1); Sodium 132 meq/L (136-145)
[2018-04-04 16:22] LABS: Albumin 2.7 g/dL (3.4-5.0); Anion Gap 8 meq/L (5-15); Blood Urea Nitrogen 30 mg/dL (7-18); Calcium 8.1 mg/dL (8.5-10.1); Carbon Dioxide 32.6 meq/L (21.0-32.0); Glucose,Random 213 mg/dL (74-106); Lipase 1059 U/L (73-393)
[2018-04-04 16:25] LABS: Alanine Aminotransferase 27 U/L (12-78); Aspartate Aminotransferase 54 U/L (15-37); Glomerular Filtration Rate 33 mL/min (>89)
[2018-04-04 16:27] LABS: Total Protein 8.1 g/dL (6.4-8.2)
[2018-04-04 16:28] LABS: Alkaline Phosphatase 140 U/L (45-117)
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
[2018-04-04] MEDS ORDERED: Spironolactone 25 MG Tablet PO SCH (17:00)
[2018-04-04] MEDS ORDERED: Dextrose 50% in Water 50 ML Vial IV.PUSH PRN (18:10)
--- NOTE | 2018-04-04 20:53 | P.CONNP ---
History of Present Illness Service: Nephrology Consult date: 04/04/18 Requesting Physician: Emilio Casas Reason for Consult: ARF Primary Care Provider: Pal Hinojosa MD Chief Complaint: Abdominal pain History of Present Illness: Patient is a 53-year-old male with history of constipation, abdominal pain he has no bowel movement for a week and came to the hospital and was admitted during investigation it was found he has cirrhotic liver, he denies drinking alcohol, he has hyponatremia and has been taking diuretic HCTZ for hypertension , patient was placed on spironolactone, he was discharged today and came back later this afternoon as he has some work to do. His creatinine ranged between 1.4-2.1 last year he has normal creatinine 1, he did receive IV contrast with CT of abdomen and pelvis. Review of Systems Constitutional: Reports anorexia, Reports lack of energy, Reports malaise Cardiovascular: Denies chest pain, Denies chest pain at rest, Denies chest pain with activity, Denies excessive sweating, Denies fainting, Denies fast heart rate, Denies foot swelling, Denies generalized swelling, Denies irregular heart rhythm, Denies leg pain with activity, Denies leg sores, Denies leg swelling, Denies lightheadedness, Denies radiating jaw, neck or arm pain, Denies rapid, pounding, or irregular heartbeat, Denies shortness of breath, Denies shortness of breath with activity, Denies shortness of breath when lying down, Denies shortness of breath causing sudden awakening, Denies slow heart rate, Denies other Respiratory: Denies change in phlegm color, Denies chest congestion, Denies cough, Denies coughing up blood, Denies excessive phlegm production, Denies pain on inspiration, Denies pain with cough, Denies shortness of breath, Denies shortness of breath with activity, Denies snoring, Denies stridor, Denies wheezing, Denies other Gastrointestinal: Reports abdominal pain, Reports constipation, Reports other Genitourinary: Reports other Musculoskeletal: Reports other Endocrine: Denies cold intolerance, Denies excessive sweating, Denies flushing, Denies heat intolerance, Denies increased hunger, Denies increased thirst, Denies increased urination, Denies rapid, pounding, or irregular heartbeat, Denies other Hematologic/Lymphatic: Denies easy bleeding, Denies easy bruising, Denies enlarged lymph nodes, Denies other Allergic/Immunologic: Denies GI upset with certain foods, Denies hives, Denies itchy eyes, Denies lip swelling, Denies seasonal runny nose, Denies throat swelling, Denies tongue swelling, Denies wheezing, Denies other PMFSH - History History Provided By: Patient - Medical History Medical History: Medical History (Last Updated 04/04/18 @ 20:52 by Easton Nunez MD) History of abdominal paracentesis Hypertension Diabetes - Surgical History Surgical History: Surgical History (Last Reviewed 04/04/18 @ 20:49 by Easton Nunez MD) History of hip surgery - Family History Family History: Family History (Last Reviewed 04/04/18 @ 20:49 by Easton Nunez MD) Brother Colon cancer - Social History I have reviewed the patient's Social History: Yes - Tobacco History Second Hand Smoke Exposure: No Smoking Status: Never smoker - Alcohol History How Often Do You Have a Drink Containing Alcohol: Never - Substance Use History Substance History: No History of Abuse - Immunization History Tetanus Immunization: <5 Years Hx Influenza Vaccine This Season: No Medications and Allergies Active Medications: Active Medications Dextrose (D50w Vial) 50 ml IV.PUSH UNSCH PRN PRN Reason: PER HYPOGLYCEMIA PROTOCOL Glucagon (Glucagon Inj) 1 mg OTHER PRN PRN PRN Reason: for Hypoglycemia Protocol Albumin Human (Flexbumin 25% Inj) 50 mls @ 60 mls/hr IV.SIG Q12H ROSY Insulin Aspart (Novolog Insulin Correctional Sugar Inj) 0 unit SQ ACHS ROSY; Protocol Metoprolol Tartrate (Lopressor) 100 mg PO BID ROSY Sodium Chloride (Ns Flush) 2 ml IV.FLUSH BID ROSY Sodium Chloride (Ns Flush) 2 ml IV.FLUSH PRN PRN PRN Reason: FLUSH AFTER USING IV ACCESS Spironolactone (Aldactone) 25 mg PO BID@0900,1800 [facility] Allergies Allergy/AdvReac Type Severity Reaction Status Date / Time carvedilol Allergy Severe skin Verified 04/04/18 14:45 peeling to hands and feet clonidine Allergy Severe Swelling Verified 04/04/18 14:44 Home Medications Medication Instructions Recorded Confirmed Type metformin 500 mg PO BID 04/02/18 04/04/18 History metoprolol ta-hydrochlorothiaz 1 tab PO BID 04/02/18 04/04/18 History Exam Vital signs: Vital Signs 04/04/18 14:39 04/04/18 17:35 Temperature 99.0 F Pulse Rate 64 65 Respiratory Rate 16 Blood Pressure 155/83 H 148/92 H Pulse Oximetry 96 Intake & Output 04/04/18 04/04/18 04/05/18 06:59 18:59 06:59 Intake Total 240 / 240 Balance 240 / 240 Weight 107 kg Intake: Oral 240 / 240 Narrative: GENERAL: Well-nourished, well-developed patient. SKIN: Warm and dry. HEAD: Normocephalic. EYES: No scleral icterus. No injection or drainage. NECK: Supple, trachea midline. No JVD or lymphadenopathy. CARDIOVASCULAR: Regular rate and rhythm without murmurs, gallops, or rubs. RESPIRATORY: Breath sounds equal bilaterally. No accessory muscle use. GASTROINTESTINAL: Abdomen distended. EXTREMITIES: As above NEUROLOGICAL: Awake, alert, and oriented x 3. Non-focal. Results - Lab Results 04/04/18 16:00 04/04/18 16:00 Most recent lab results Calcium 8.1 mg/dL (8.5-10.1) L 04/04/18 16:00 Assessment and Plan - Assessment (1) Acute renal failure Code(s): N17.9 - Acute kidney failure, unspecified Status: Acute (2) Ascites Code(s): R18.8 - Other ascites Status: Acute (3) Cirrhosis Code(s): K74.60 - Unspecified cirrhosis of liver Status: Acute (4) Diabetes Code(s): E11.9 - Type 2 diabetes mellitus without complications Status: Acute - Plan Patient received recent contrast study and discussed cause renal dysfunction we will check renal functions Check urine sodium and creatinine ratio Avoid nephrotoxic agents He has hyponatremia and I will avoid HCTZ continue with spironolactone Continue with albumin Monitor intake and output Follow BMP (2) Ascites Qualifiers: Ascites type: other type Qualified Code(s): R18.8 - Other ascites (3) Cirrhosis Qualifiers: Hepatic cirrhosis type: unspecified hepatic cirrhosis Ascites presence: with ascites Qualified Code(s): K74.60 - Unspecified cirrhosis of liver; R18.8 - Other ascites (4) Diabetes Qualifiers: Diabetes mellitus complication detail: with unspecified neuropathy
[2018-04-04] MEDS ORDERED: hydroCHLOROthiazide 25 MG Tablet PO SCH (21:00)
[2018-04-04] MEDS: Metoprolol Tartrate 100 MG Tablet PO SCH (21:24)
[2018-04-04] MEDS: Albumin Human 25% Inj 50 ML IV.SIG SCH (21:24)
[2018-04-04] MEDS: Insulin NovoLOG Aspart Correctional Sugar Inj SQ SCH (21:39)
[2018-04-04] MEDS ORDERED: Melatonin 5 MG Tablet PO ONE (22:30)
[2018-04-05 07:11] LABS: Chloride 96 meq/L (98-107); Potassium 3.2 meq/L (3.5-5.1); Sodium 135 meq/L (136-145)
[2018-04-05 07:17] LABS: Albumin 2.2 g/dL (3.4-5.0); Anion Gap 8 meq/L (5-15); Blood Urea Nitrogen 26 mg/dL (7-18); Calcium 7.6 mg/dL (8.5-10.1); Carbon Dioxide 31.4 meq/L (21.0-32.0); Glucose,Random 236 mg/dL (74-106)
[2018-04-05 07:20] LABS: Alanine Aminotransferase 26 U/L (12-78); Aspartate Aminotransferase 53 U/L (15-37); Glomerular Filtration Rate 45 mL/min (>89)
[2018-04-05 07:22] LABS: Total Protein 6.8 g/dL (6.4-8.2)
[2018-04-05 07:23] LABS: Alkaline Phosphatase 127 U/L (45-117)
[2018-04-05] MEDS: Insulin NovoLOG Aspart Correctional Sugar Inj SQ SCH ×2 (08:35→12:52)
[2018-04-05] MEDS ORDERED: Spironolactone 25 MG Tablet PO SCH (09:00)
[2018-04-05] MEDS: Albumin Human 25% Inj 50 ML IV.SIG SCH (09:01)
[2018-04-05] MEDS: Metoprolol Tartrate 100 MG Tablet PO SCH (09:02)
--- NOTE | 2018-04-05 10:35 | P.PN ---
Subjective Interval history: Nursing reports that the patient did have some significant delay in trying to be able to void. He reports a decreased sensation to actually void. A bladder scan showed about 500 cc after a failed voiding attempt. Shortly after the bladder scan the patient was able to spontaneously go patient himself says his abdomen is slightly getting bigger again. Still overall wants to be able go home today if he can be stabilized with his abdominal distention improved. Physical Exam Vital signs: Vital Signs 04/04/18 14:39 04/04/18 17:35 04/04/18 20:00 Temperature 99.0 F 98.3 F Pulse Rate 64 65 67 Respiratory Rate 16 20 Blood Pressure 155/83 H 148/92 H 161/82 H Pulse Oximetry 96 93 L 04/05/18 00:00 04/05/18 08:00 Temperature 98.3 F 97.6 F Pulse Rate 66 65 Respiratory Rate 20 20 Blood Pressure 134/71 130/69 Pulse Oximetry 95 96 Intake & Output 04/04/18 04/05/18 04/05/18 18:59 06:59 18:59 Intake Total 240 / 240 290 / 290 240 / 240 Balance 240 / 240 290 / 290 240 / 240 Weight 107 kg 107.3 kg Intake: IV 50 / 50 Flexbumin 25% Inj 50 ML @ 60 50 / 50 mls/hr IV.SIG Q12H ROSY Rx#: [id number] Oral 240 / 240 240 / 240 240 / 240 Other: # Voids 0 Narrative: Clear lungs bilaterally, unlabored breathing Heart sounds regular rate and rhythm, no murmurs Abdomen is mild to moderately distended today No lower extremity edema Awake and alert Mild diffuse jaundice Results - Labs CBC & Chem 7: 04/04/18 16:00 04/05/18 06:15 Laboratory Results - last 24 hr 04/04/18 04/04/18 04/04/18 16:00 16:00 21:34 CBC w Diff Auto diff final WBC 11.2 H RBC 3.56 L Hgb 12.6 L Hct 36.7 L MCV 103.0 H MCH 35.5 H MCHC 34.4 RDW 12.4 Plt Count 123 L MPV 8.2 Neut % (Auto) 80.6 H Lymph % (Auto) 10.0 [place] % (Auto) 9.1 H Eos % (Auto) 0.0 Baso % (Auto) 0.3 Neut # (Auto) 9.1 H Lymph # (Auto) 1.1 [place] # (Auto) 1.0 H Eos # (Auto) 0.0 Baso # (Auto) 0.0 WBC Differential . Differential Comment . Sodium 132 L Potassium 3.4 L Chloride 91 L Carbon Dioxide 32.6 H Anion Gap 8 BUN 30 H Creatinine 2.10 H Estimated GFR 33 L POC Glucose 336 H Random Glucose 213 H Calcium 8.1 L Total Bilirubin 2.6 H AST 54 H ALT 27 Alkaline Phosphatase 140 H Total Protein 8.1 D Albumin 2.7 L Lipase 1059 H 04/05/18 04/05/18 06:15 07:45 CBC w Diff WBC RBC Hgb Hct MCV MCH MCHC RDW Plt Count MPV Neut % (Auto) Lymph % (Auto) [place] % (Auto) Eos % (Auto) Baso % (Auto) Neut # (Auto) Lymph # (Auto) [place] # (Auto) Eos # (Auto) Baso # (Auto) WBC Differential Differential Comment Sodium 135 L Potassium 3.2 L Chloride 96 L Carbon Dioxide 31.4 Anion Gap 8 BUN 26 H Creatinine 1.60 H Estimated GFR 45 L POC Glucose 222 H Random Glucose 236 H Calcium 7.6 L Total Bilirubin 1.8 H AST 53 H ALT 26 Alkaline Phosphatase 127 H Total Protein 6.8 D Albumin 2.2 L Lipase Assessment and Plan - Plan 53-year-old white male being admitted for acute kidney injury likely secondary to liver disease and third spacing. Had paracentesis done yesterday, noted to be coagulopathic with an INR of 1.3 likely secondary to alcoholic cirrhosis. Hepatic insufficiency w/ cirrhosis ascites -INR of 1.3, w/ bilirubin 2.8, hepatitis profile is negative, suspect ETOH liver -Autoimmune lab workup initiated, including smooth muscle antibodies, mitochondrial antibodies, ceruloplasmin, SAUD -Has already been seen by GI, will need an outpatient colonoscopy and EGD family history of colorectal cancer as well as to evaluate for portal hypertension -Ordering another paracentesis today Acute on chronic renal impairment - possibly 2/2 third spacing vs hepatorenal syndrome - hold lasix, trend BMP, consulting nephrology Starting albumin infusion and Aldactone Hypertension home metoprolol DM - LDSS w/ accuchecks Urinary hesitancy Could be due to BPH, started Flomax, extensively counseled the patient that if his diabetes has been uncontrolled which looks like it has been since his last A1c last year was 7.9 that this could be contributing to a neurogenic bladder. Anticipate discharge today if and once a paracentesis can be performed and the patient is stable after the procedure.
--- NOTE | 2018-04-05 10:42 | US ---
EXAM DATE: 04/05/2018 10:33 AM EST AGE/SEX: 53 years / Male INDICATIONS: Increased lab values. CLINICAL DATA: This is the patient's initial encounter. Patient reports that signs and symptoms have been present for 2 days and indicates a pain score of 0/10. MEDICAL/SURGICAL HISTORY: Diabetes. Hypertension. . Hip surgery. Paracentesis. COMPARISON: [facility], US PARACENTESIS ABD W/IMAGE, 04/03/2018. [facility], CT ABDOMEN & PELVIS W CONTRAST, 04/02/2018. . MEASUREMENTS: Right Kidney:__11.7 x 5.9 x 5.9 cm Left Kidney:__11.7 x 5.6 x 5.2 cm FINDINGS: Right Kidney: Increased echotexture. No mass or hydronephrosis. Left Kidney: Increased echotexture. No mass or hydronephrosis. Bladder: There is mild thickening of the urinary bladder wall measuring up to 7 mm. The bladder is on ly mildly distended. Other: There is moderate ascites present. The liver appears small, shrunken, with a nodular liver king rface. The spleen is enlarged. CONCLUSION: 1. Increased echogenicity to the renal cortex likely from acute medical renal disease. The kidneys a re normal in size. 2. No hydronephrosis seen. 3. Moderate ascites. Liver appears cirrhotic. The spleen is enlarged typically seen with portal hype rtension. 4. Mild thickening of the urinary bladder which could be secondary to lack of distention. Electronically signed by: Rom Cuellar MD 04/05/2018 10:41 AM EST
[2018-04-05 11:20] LABS: Bilirubin,Urine Negative (Negative); Clarity,Urine Clear (Clear); Color,Urine Yellow (Yellw/Straw); Glucose,Urine (UA) 100 mg/dL (Negative); Leukocyte Esterase,Urine Negative (Negative); Nitrite,Urine Negative (Negative)
[2018-04-05 11:24] LABS: RBC,Urine 51-189 /hpf (0-3); Squamous Epithelial Cell,Urine 0-5 /hpf (0-5); WBC,Urine 0-5 /hpf (0-5)
--- NOTE | 2018-04-05 12:51 | US ---
EXAM DATE: 04/05/2018 12:43 PM EST AGE/SEX: 53 years / Male INDICATIONS: Ascites. CLINICAL DATA: This is the patient's subsequent encounter. Patient reports that signs and symptoms h ave been present for 2 days and indicates a pain score of 5/10. MEDICAL/SURGICAL HISTORY: Diabetes. . Hip surgery. COMPARISON: [facility], US KIDNEY/RENAL/BLADDER, 04/05/2018. . FLUID: Total volume of 3,800 cc of clear, yellow fluid was removed. Fluid was discarded. Paracentesis was th erapeutic only. . . TECHNIQUE: Ultrasound guidance for abdominal paracentesis. Paracentesis. The risks, benefits, and alternatives to ultrasound guided paracentesis were explained to the patient in detail including the risk of bleeding and infection. Written and verbal informed consent was obt ained. With the patient on the ultrasound table, ultrasound imaging was used to select the most appropriate approach for paracentesis. Overlying skin was prepped and draped in the usual sterile fashion and wi th a local anesthetic, a dermatotomy was made with an 11 blade scalpel. A 6 [place] A[employer]ogon[employer] ca theter was introduced into the peritoneal cavity and fluid was collected. Post procedure scanning reveals no hematoma or other complication. The patient tolerated the procedu re well and left the ultrasound suite in stable condition. FINDINGS: Adequate fluid for paracentesis. CONCLUSION: 1. Uncomplicated paracentesis. Electronically signed by: Antwon Sanchez MD 04/05/2018 12:49 PM EST
[2018-04-05] MEDS ORDERED: Albumin Human 25% Inj 50 ML IV.SIG SCH (20:00)
== END 2018-04-05 13:38 | disposition home or self-care (01) ==
LOC: PHED 14:37 → INTOOBSV 16:16 → PHEDA 16:50 → PH3 17:36
PROVIDERS: ADMIT Hospitalist; ATTEND Hospitalist

== ENCOUNTER 2018-04-22 16:28 | Observation (INO) ==
[2018-04-22] MEDS ORDERED: Morphine Inj 4 MG/ML Vial IV.PUSH ONE (17:34)
--- NOTE | 2018-04-22 17:45 | ED ---
HPI General Chief Complaint: Abdominal Pain Stated Complaint: Chest pain Time Seen by Provider: 04/22/18 17:14 Source: patient Mode of arrival: ambulatory Limitations: no limitations History of Present Illness HPI narrative: Patient is a 53-year-old male, past medical history significant for diabetes, hypertension, cirrhosis from unknown reason, who presents with complaint of dyspnea over the last several weeks with intermittent sharp, tight , left-sided chest pain. He is not sure what brings on the chest pain or relieves it. No cough, fever, chills. He has had progressive abdominal distention over the last several weeks which has been worsening. His abdomen feels tight to him. No nausea, vomiting, diarrhea. MD complaint: Reports chest pain STEMI Alert: No Onset (ago): week(s) Duration: intermittent Onset: during rest Pain location: Reports left chest Severity: moderate Quality: Reports tightness and sharp Pain radiation: Reports none Relieving factors: nothing Exacerbating factors: nothing Treatments prior to arrival chest pain: Reports none Related Data Home Medications Medication Instructions Recorded Confirmed metformin 500 mg PO BID 04/02/18 04/22/18 Previous Rx's Medication Instructions Recorded magnesium oxide 250 mg PO DAILY #30 tab 04/05/18 metoprolol tartrate 100 mg PO BID #60 tab 04/05/18 potassium chloride 10 meq PO DAILY #30 cap 04/05/18 spironolactone [Aldactone] 25 mg PO DAILY #30 tab 04/05/18 tamsulosin [Flomax] 0.4 mg PO DAILY #30 cap 04/05/18 Allergies Allergy/AdvReac Type Severity Reaction Status Date / Time carvedilol Allergy Severe skin Verified 04/18/18 09:34 peeling to hands and feet clonidine Allergy Severe Swelling Verified 04/18/18 09:34 Review of Systems ROS: all other systems reviewed are negative [facility] Medical History Medical History Diabetes (Acute) History of abdominal paracentesis (Acute) Hypertension (Acute) Surgical History Surgical History History of hip surgery (Acute) Family History Family History Brother Colon cancer Social History Social History Substance History: No History of Abuse Second Hand Smoke Exposure: No Smoking Status: Never smoker How Often Do You Have a Drink Containing Alcohol: Never Recent Out of Country Travel within the Last 8 Weeks: No Immunization History Tetanus Immunization: Unsure Exam Narrative Exam Narrative: GENERAL: Well-appearing male in no acute distress, breathing comfortably on room air SKIN: Focused skin assessment warm/dry. HEAD: Atraumatic. Normocephalic. EYES: Pupils equal and round. No scleral icterus. No injection or drainage. ENT: No nasal bleeding or discharge. Mucous membranes pink and moist. NECK: Trachea midline. No JVD. CARDIOVASCULAR: Heart rate low 100s. No murmur appreciated. Intact and equal peripheral pulses. RESPIRATORY: No accessory muscle use. Clear to auscultation. Breath sounds equal bilaterally. GASTROINTESTINAL: Abdomen soft, non-tender. Distended. MUSCULOSKELETAL: No obvious deformities. No clubbing. No cyanosis. No edema. NEUROLOGICAL: Awake and alert. No obvious cranial nerve deficits. Motor grossly within normal limits. Normal speech. PSYCHIATRIC: Appropriate mood and affect; insight and judgment normal. Course Initial Documented Vital Signs Temperature 98.1 F 04/22/18 16:58 Pulse Rate 122 H 04/22/18 16:58 Respiratory Rate 12 04/22/18 16:58 Blood Pressure 127/78 04/22/18 16:58 Pulse Oximetry 99 04/22/18 16:58 Last Documented Vital Signs Temperature 98.1 F 04/22/18 17:02 Pulse Rate 96 H 04/22/18 18:50 Respiratory Rate 18 04/22/18 17:23 Blood Pressure 157/96 H 04/22/18 17:23 Pulse Oximetry 95 04/22/18 18:50 Medical Decision Making [facility] Narrative Medical decision making narrative: Patient is a 53-year-old male who presents with complaint of intermittent chest pain and shortness of breath sometimes occurs with exertion but sometimes does not. He has been hemodynamically stable while in the emergency department and appears well in general. Initial troponin was unremarkable and EKG does not show acute ST segment elevations. Chest x-ray shows no acute process. Labs are at baseline. He has been admitted for chest pain rule out and to have a paracentesis done as this may be contributing to his symptoms. Medical Screen Exam Complete: Yes Emergency Medical Condition: Yes Differential Diagnosis Differential Diagnosis: Differential diagnosis includes but is not limited to acute coronary syndrome, pneumonia, ascites compressing the diaphragm. Medical Records Medical records reviewed: Yes I reviewed the patient's medical records. Lab Data Lab results reviewed: Yes I reviewed the patient's lab results. Result diagrams: 04/22/18 17:45 04/22/18 17:45 Lab Results 04/22/18 04/22/18 04/22/18 Range/Units 17:45 17:45 17:45 WBC 3.8 L (4.0-11.0) th/mm3 RBC 3.43 L (4.50-5.90) mil/mm3 Hgb 12.6 L (13.0-17.0) gm/dL Hct 35.9 L (39.0-51.0) % MCV 104.4 H (80.0-100.0) fL MCH 36.7 H (27.0-34.0) pg MCHC 35.1 (32.0-36.0) % RDW 12.8 (11.6-17.2) % Plt Count 88 L (150-450) th/mm3 MPV 7.8 (7.0-11.0) fL Prelim Diff (Auto) Slide review pending Neut % (Auto) 59.4 (16.0-70.0) % Lymph % (Auto) 22.9 (9.0-44.0) % Lander % (Auto) 14.4 H (0.0-8.0) % Eos % (Auto) 2.6 (0.0-4.0) % Baso % (Auto) 0.7 (0.0-2.0) % Neut # (Auto) 2.3 (1.8-7.7) th/mm3 Lymph # (Auto) 0.9 L (1.0-4.8) th/mm3 Lander # (Auto) 0.5 (0.0-0.9) th/mm3 Eos # (Auto) 0.1 (0.0-0.4) th/mm3 Baso # (Auto) 0.0 (0.0-0.2) th/mm3 WBC Differential . Diff Scan Auto diff confirmed Differential Comment . Platelet Estimate Low L (Normal) Platelet Morphology Normal (Normal) PT 13.8 H (9.8-11.6) sec INR 1.4 Ratio APTT 29.4 (23.4-31.7) sec Sodium 135 L (136-145) meq/L Potassium 4.2 (3.5-5.1) meq/L Chloride 103 (98-107) meq/L Carbon Dioxide 23.6 (21.0-32.0) meq/L Anion Gap 8 (5-15) meq/L BUN 26 H (7-18) mg/dL Creatinine 1.82 H (0.60-1.30) mg/dL Estimated GFR 39 L (>89) mL/min Random Glucose 183 H (74-106) mg/dL Calcium 8.3 L (8.5-10.1) mg/dL Total Bilirubin 2.8 H (0.2-1.0) mg/dL AST 43 H (15-37) U/L ALT 21 (12-78) U/L Alkaline Phosphatase 127 H (45-117) U/L Troponin I Less than 0.02 L (0.02-0.05) ng/mL Total Protein 8.1 (6.4-8.2) g/dL Albumin 2.5 L (3.4-5.0) g/dL Imaging Data Attestation: I personally reviewed and interpreted this imaging study as follows : My impression: No acute cardiopulmonary process. Radiologist's impression: Chest X-Ray 04/22/18 17:34 CONCLUSION: Stable appearance with no acute cardiopulmonary disease. ECG Data EKG Prior to Arrival: No Attestation: I personally reviewed and interpreted this ECG as follows: Discharge Plan Discharge Disposition Patient Disposition: ED Admit(ED Internal Use Only) Discharge Condition Condition: Stable Discharge Order Discharge Orders: ED Use Only Admit Order (Routine); Ordered 04/22/18 Ordered By: Marylu Miller Discharge Details Diagnosis: Chest pain, rule out acute myocardial infarction, Ascites Physicians Team ED Provider: Marylu Miller Primary Care Provider: Pal Hinojosa Attending Provider: Wander Roberts Discharge Interventions Interventions: Vital Signs Last Done: 04/22/18 17:23 Status ED Status: Admitted Observation Patient
--- NOTE | 2018-04-22 17:55 | XR ---
EXAM DATE: 04/22/2018 5:51 PM EST AGE/SEX: 53 years / Male INDICATIONS: Chest discomfort, abdominal pain for 2 days CLINICAL DATA: This is the patient's initial encounter. Patient reports that signs and symptoms have been present for 2 days and indicates a pain score of 0/10. MEDICAL/SURGICAL HISTORY: Diabetes. Pancreatitis. None. COMPARISON: [facility], CHEST 1V SINGLE AP, 04/18/2018. . FINDINGS: A single AP view of the chest demonstrates the lungs to be symmetrically aerated without evidence of mass, infiltrate or effusion. The cardiomediastinal contours are unremarkable. Osseous structures a re intact. The study remains mid inspiratory. CONCLUSION: Stable appearance with no acute cardiopulmonary disease. Electronically signed by: Basil Ross MD 04/22/2018 5:54 PM EST
[2018-04-22 18:05] LABS: Baso % (Auto) 0.7 % (0.0-2.0); Eos # (Auto) 0.1 th/mm3 (0.0-0.4); Eos % (Auto) 2.6 % (0.0-4.0); Hematocrit 35.9 % (39.0-51.0); Hemoglobin 12.6 gm/dL (13.0-17.0); Lymph # (Auto) 0.9 th/mm3 (1.0-4.8); Lymph % (Auto) 22.9 % (9.0-44.0); Mean Corpuscular HGB Conc 35.1 % (32.0-36.0); Mean Corpuscular Hemoglobin 36.7 pg (27.0-34.0); Mean Corpuscular Volume 104.4 fL (80.0-100.0); Mean Platelet Volume 7.8 fL (7.0-11.0); Mono # (Auto) 0.5 th/mm3 (0.0-0.9); Mono % (Auto) 14.4 % (0.0-8.0); Neut # (Auto) 2.3 th/mm3 (1.8-7.7); Neut % (Auto) 59.4 % (16.0-70.0); Platelet Count 88 th/mm3 (150-450); Red Blood Count 3.43 mil/mm3 (4.50-5.90); Red Cell Distribution Width 12.8 % (11.6-17.2); White Blood Count 3.8 th/mm3 (4.0-11.0)
[2018-04-22 18:12] LABS: Activated Partial Thrombo Time 29.4 sec (23.4-31.7); INR 1.4 Ratio; Prothrombin Time 13.8 sec (9.8-11.6)
[2018-04-22 18:20] LABS: Albumin 2.5 g/dL (3.4-5.0); Anion Gap 8 meq/L (5-15); Aspartate Aminotransferase 43 U/L (15-37); Blood Urea Nitrogen 26 mg/dL (7-18); Calcium 8.3 mg/dL (8.5-10.1); Carbon Dioxide 23.6 meq/L (21.0-32.0); Chloride 103 meq/L (98-107); Glomerular Filtration Rate 39 mL/min (>89); Glucose,Random 183 mg/dL (74-106); Potassium 4.2 meq/L (3.5-5.1); Sodium 135 meq/L (136-145)
[2018-04-22 18:25] LABS: Alanine Aminotransferase 21 U/L (12-78); Alkaline Phosphatase 127 U/L (45-117); Total Protein 8.1 g/dL (6.4-8.2)
[2018-04-22 18:48] LABS: Platelet Morphology Normal (Normal)
[2018-04-22] MEDS ORDERED: Bisacodyl 10 MG Supp RECTAL PRN (19:34)
[2018-04-22] MEDS ORDERED: Acetaminophen 325 MG Tablet PO PRN (19:34)
[2018-04-23 04:17] LABS: Albumin 2.3 g/dL (3.4-5.0); Anion Gap 8 meq/L (5-15); Aspartate Aminotransferase 43 U/L (15-37); Blood Urea Nitrogen 27 mg/dL (7-18); Calcium 7.9 mg/dL (8.5-10.1); Carbon Dioxide 25.8 meq/L (21.0-32.0); Chloride 105 meq/L (98-107); Glomerular Filtration Rate 42 mL/min (>89); Glucose,Random 105 mg/dL (74-106); Potassium 4.5 meq/L (3.5-5.1); Sodium 139 meq/L (136-145)
[2018-04-23 04:18] LABS: Alanine Aminotransferase 19 U/L (12-78)
[2018-04-23 04:21] LABS: Alkaline Phosphatase 109 U/L (45-117); Total Protein 7.2 g/dL (6.4-8.2)
--- NOTE | 2018-04-23 07:03 | ECG ---
Date Performed: 04/22/2018 Time Performed: 17:19:26 PTAGE: 53 years EKG: SINUS TACHYCARDIA BORDERLINE LEFT AXIS DEVIATION LOW QRS VOLTAGE IN PRECORDIAL LEADS ABNORM AL RHYTHM ECG Compared to prior electrocardiogram, Voltage has decreased and rate has increased. PREVIOUS TRACING : 04/18/2018 10.16 DOCTOR: Bhavin Fowler Interpretating Date/Time 04/23/2018 07:02:19
--- NOTE | 2018-04-23 08:03 | ECG ---
Date Performed: 04/23/2018 Time Performed: 02:06:36 PTAGE: 53 years EKG: Sinus rhythm LOW QRS VOLTAGE IN PRECORDIAL LEADS POSSIBLE SEPTAL MYOCARDIAL INFARCTION BORDERLINE ECG No signific ant change from prior electrocardiogram. PREVIOUS TRACING : 04/22/2018 20.41 DOCTOR: Bhavin Fowler Interpretating Date/Time 04/23/2018 08:01:29
--- NOTE | 2018-04-23 08:09 | ECG ---
Date Performed: 04/22/2018 Time Performed: 20:41:14 PTAGE: 53 years EKG: Sinus rhythm LOW QRS VOLTAGE IN PRECORDIAL LEADS POSSIBLE ANTERIOR MYOCARDIAL INFARCTION BORDERLINE ECG No signif icant change from prior electrocardiogram. PREVIOUS TRACING : 04/22/2018 17.19 DOCTOR: Bhavin Fowler Interpretating Date/Time 04/23/2018 08:07:56
[2018-04-23] MEDS: Metoprolol Tartrate 100 MG Tablet PO SCH ×2 (08:22→20:37)
[2018-04-23] MEDS ORDERED: MAGNESIUM OXIDE 250 MG PO SCH (09:00)
--- NOTE | 2018-04-23 09:00 | P.HPIM ---
History of Present Illness Primary Care Physician: Pal Hinojosa MD Going back to [place] patient was in usual state of health and noticed 1 day that his stomach was "swollen." Called his PMD and a few days later was so distended he couldnt move and noticed back pain. He went to [facility] and was hospitalized there for the first time related to the swelling in the abdomen. Over there he had evaluation by GI team and a paracentesis performed. He was told to follow up outpatient with GI for evaluation of new onset ascities and cirrhosis. Patient reports prior to discharge he was started on spirnolactone and discharged. Was not started on lasix at the time. Since discharge the swelling has continued and now worsened since his discharge. Patient went back to [place] 1 week ago and he was evaluated briefly and discharged. Never got a paracentesis last week and was instructed to see GI outpatient. When he went to see GI yesterday he was sent to the ED. ROS (+) back pain, SOB, diarrhea, chest pain ( last week resolved), . ROS(-) nausea, vomiting, fever, chills, headache Patient denies any known family history of cirrhosis or other liver diseases. Patient has never received a blood transfusion. In emergency department EKG showed sinus tachycardia. Chest x-ray showed stable appearance with no acute cardiopulmonary disease. Lab work negative for elevated white blood cell count. Platelet count noted to be 88. Creatinine noted to be 1.82. Alkaline phosphatase slightly elevated at 127. IR guided paracentesis order placed and patient to be monitored on medical search team. Allergies: Clonidine, carvedilol. Patient notes that he develops a rash Social history: No tobacco use, social alcohol consumption Past medical history: Diabetes, hypertension. New cirrhosis Surgical history: Left hip muscle repair in 1991 Family history: No family history of cirrhosis. Mother (Diabetes, hypertension , hyperlipidemia) father (, diabetes, hypertension) brother (colon cancer, hypertension, hyperlipidemia. Close ( Medications: See EMR orders Review of Systems Review of Systems: all other systems reviewed are negative [facility] Medical History Medical History Diabetes (Acute) History of abdominal paracentesis (Acute) Hypertension (Acute) Surgical History Surgical History History of hip surgery (Acute) Family History Family History Brother Colon cancer Social History Social History Substance History: No History of Abuse Second Hand Smoke Exposure: No Smoking Status: Never smoker How Often Do You Have a Drink Containing Alcohol: Never Recent Travel in [facility] within the Last 8 Weeks: No Recent Out of Country Travel within the Last 8 Weeks: No Immunization History Tetanus Immunization: Unsure Medications and Allergies Allergies Allergy/AdvReac Type Severity Reaction Status Date / Time carvedilol Allergy Severe skin Verified 04/18/18 09:34 peeling to hands and feet clonidine Allergy Severe Swelling Verified 04/18/18 09:34 Home Medications Medication Instructions Recorded Confirmed Type metformin 500 mg PO BID 04/02/18 04/22/18 History Active Medications: Active Medications Acetaminophen (Tylenol) 650 mg PO Q4H PRN PRN Reason: Temp > 100.4 Al Hydroxide/Mg Hydroxide (Milk Of Magnesia Liq) 30 ml PO Q12H PRN PRN Reason: Mild Constipation Bisacodyl (Dulcolax Supp) 10 mg RECTAL DAILY PRN PRN Reason: SEVERE CONSITIPATION Lactulose (Lactulose Liq) 30 ml PO DAILY PRN PRN Reason: SEVERE CONSITIPATION Metoprolol Tartrate (Lopressor) 100 mg PO BID [facility] Last Admin: 04/23/18 08:22 Dose: 100 mg Ondansetron HCl (Zofran Inj) 4 mg IV.PUSH Q6H PRN PRN Reason: NAUSEA OR VOMITING Sennosides (Senokot) 17.2 mg PO Q12H PRN PRN Reason: Moderate Constipation Sodium Chloride (Ns Flush) 2 ml IV.FLUSH BID [facility] Last Admin: 04/23/18 08:22 Dose: 2 ml Sodium Chloride (Ns Flush) 2 ml IV.FLUSH UNSCH PRN PRN Reason: FLUSH AFTER USING IV ACCESS Tamsulosin HCl (Flomax) 0.4 mg PO DAILY [facility] Last Admin: 04/23/18 08:22 Dose: 0.4 mg Physical Exam Vital signs: Last Vital Signs Temp 98.6 F 04/23/18 07:12 Pulse 76 04/23/18 07:12 Resp 16 04/23/18 07:12 BP 144/91 H 04/23/18 07:12 Pulse Ox 97 04/23/18 07:12 Intake & Output 04/21/18 04/22/18 04/23/18 04/24/18 06:59 06:59 06:59 06:59 Intake Total 0 / 0 Output Total 0 / 0 Balance 0 / 0 Weight 102.058 kg gen: nad heent: EOMI cvs: s1/s2. No murmurs rubs or gallop appreciated resp: reduced breathsounds at lung base bilaterally gi: Moderate distended, no guarding or rebound, + bowel sounds, soft. Positive fluid shift/wave. Shifting dullness. ext: NO leg edema appreciated. Results Labs CBC & Chem 7: 04/22/18 17:45 04/23/18 03:09 Imaging Impressions Chest X-Ray 04/22/18 17:34 CONCLUSION: Stable appearance with no acute cardiopulmonary disease. Caprini VTE Risk Assessment Caprini VTE Risk Assessment: Moderate/High Risk (score >= 2) Caprini Risk Assessment Model: Point Value = 1 Point Value = 2 Point Value = 3 Point Value = 5 Age 41-60 Minor surgery BMI > 25 kg/m2 Swollen legs Varicose veins or History of unexplained or recurrent spontaneous Oral contraceptives or hormone replacement Sepsis (< 1 month) Serious lung disease, including pneumonia (< 1 month) Abnormal pulmonary function Acute myocardial infarction Congestive heart failure (< 1 month) History of inflammatory bowel disease Medical patient at bed rest Age 61-74 Arthroscopic surgery Major open surgery (> 45 min) Laparoscopic surgery (> 45 min) Malignancy Confined to bed (> 72 hours) Immobilizing plaster cast Central venous access Age >= 75 History of VTE Family history of VTE Factor V Leiden Prothrombin [id number] Lupus anticoagulant Anticardiolipin antibodies Elevated serum homocysteine Heparin-induced thrombocytopenia Other congenital or acquired thrombophilia Stroke (< 1 month) Elective arthroplasty Hip, pelvis, or leg fracture Acute spinal cord injury (< 1 month) Prophylaxis Regimen: Total Risk Factor Score Risk Level Prophylaxis Regimen 0-1 Low Early ambulation 2 Moderate Order ONE of the following: *Sequential Compression Device (SCD) *Heparin 5000 units SQ BID 3-4 Higher Order ONE of the following medications: *Heparin 5000 units SQ TID *Enoxaparin/Lovenox 40 mg SQ daily (WT < 150 kg, CrCl > 30 mL/min) *Enoxaparin/Lovenox 30 mg SQ daily (WT < 150 kg, CrCl > 10-29 mL/min) *Enoxaparin/Lovenox 30 mg SQ BID (WT < 150 kg, CrCl > 30 mL/min) AND/OR *Sequential Compression Device (SCD) 5 or more Highest Order ONE of the following medications: *Heparin 5000 units SQ TID (Preferred with Epidurals) *Enoxaparin/Lovenox 40 mg SQ daily (WT < 150 kg, CrCl > 30 mL/min) *Enoxaparin/Lovenox 30 mg SQ daily (WT < 150 kg, CrCl > 10-29 mL/min) *Enoxaparin/Lovenox 30 mg SQ BID (WT < 150 kg, CrCl > 30 mL/min) AND *Sequential Compression Device (SCD) Assessment and Plan Plan Patient is a 53-year-old male with newly diagnosed cirrhosis of unknown etiology at this time presenting for acute left-sided chest pain suspected to be secondary to severe abdominal distention from ascites fluid. Gastroenterology: New onset cirrhosis Gastroenterology consulted and recommendations to be appreciated Hepatitis panel previously negative Liver function tests morning Outpatient workup for etiology. Patient will ultimately require colonoscopy/ EGD Meld score: 20 Spironolactone 50 mg+ Lasix 20mg with titration outpatient ultimately. Start lower given patient recently with 11 L of fluid removed from abdomen Status post 11 L of fluid removed during paracentesis. Administer albumin Autoimmune workup to this point has Been unremarkable Nephrology: Acute kidney injury Continue albumin infusion. Suspect acute kidney injury may be secondary to poor effective circulating volume in the setting of cirrhosis. Nephrology for follow-up consultation Cardiology: Hypertension Continue metoprolol 100 mg twice daily Endocrinology: Diabetes type 2 Hold oral hypoglycemic medications Insulin sliding scale regimen CODE STATUS: Full code DVT prophylaxis: SCD Disposition: [facility] H&P: Quality VTE Deep Vein Thrombosis/Pulmonary Embolism Present on Admission: No
--- NOTE | 2018-04-23 11:41 | P.CONGI ---
History of Present Illness Chief complaint: Chest pain rule out [place], Abdominal distention History of Present Illness: This is 53 y/o male with new diagnosis of cirrhosis in March of unknown etiology complicated by ascites refractory to treatment. He was placed spironolactone, not on Lasix. He was seen by Dr. Bob yesterday for distended abd that was causing severe discomfort and shortness of breath and was instructed to go to the ED. Patient denies nausea, vomiting, melena or hematochezia. Denies hx of alcohol abuse. He had paracentesis today with 11 L removed per pt. Review of Systems All other systems reviewed negative except as stated in HPI PMFSH - History History Provided By: Patient - Medical History Medical History: Medical History (Last Reviewed 04/23/18 @ 09:10 by Everett Kerns) Diabetes History of abdominal paracentesis Hypertension - Surgical History Surgical History: Surgical History (Last Reviewed 04/23/18 @ 09:10 by Everett Kerns) History of hip surgery - Family History Family History: Family History (Last Reviewed 04/22/18 @ 17:43 by Marylu Miller MD) Brother Colon cancer - Tobacco History Second Hand Smoke Exposure: No Smoking Status: Never smoker - Alcohol History How Often Do You Have a Drink Containing Alcohol: Never - Substance Use History Substance History: No History of Abuse - Travel History Recent Travel in the [place] Within the Last 8 Weeks: No Recent Travel Out of the Country Within the Last 8 Weeks: No - Immunization History Tetanus Immunization: Unsure Medications and Allergies Active Medications: Active Medications Acetaminophen (Tylenol) 650 mg PO Q4H PRN PRN Reason: Temp > 100.4 Al Hydroxide/Mg Hydroxide (Milk Of Magnesia Liq) 30 ml PO Q12H PRN PRN Reason: Mild Constipation Bisacodyl (Dulcolax Supp) 10 mg RECTAL DAILY PRN PRN Reason: SEVERE CONSITIPATION Albumin Human (Flexbumin 25% Inj) 250 mls @ 60 mls/hr IV.SIG ONCE ONE; Protocol Stop: 04/23/18 14:54 Lactulose (Lactulose Liq) 30 ml PO DAILY PRN PRN Reason: SEVERE CONSITIPATION Metoprolol Tartrate (Lopressor) 100 mg PO BID [facility] Last Admin: 04/23/18 08:22 Dose: 100 mg Ondansetron HCl (Zofran Inj) 4 mg IV.PUSH Q6H PRN PRN Reason: NAUSEA OR VOMITING Sennosides (Senokot) 17.2 mg PO Q12H PRN PRN Reason: Moderate Constipation Sodium Chloride (Ns Flush) 2 ml IV.FLUSH BID [facility] Last Admin: 04/23/18 08:22 Dose: 2 ml Sodium Chloride (Ns Flush) 2 ml IV.FLUSH UNSCH PRN PRN Reason: FLUSH AFTER USING IV ACCESS Tamsulosin HCl (Flomax) 0.4 mg PO DAILY [facility] Last Admin: 04/23/18 08:22 Dose: 0.4 mg Allergies Allergy/AdvReac Type Severity Reaction Status Date / Time carvedilol Allergy Severe skin Verified 04/18/18 09:34 peeling to hands and feet clonidine Allergy Severe Swelling Verified 04/18/18 09:34 Home Medications Medication Instructions Recorded Confirmed Type metformin 500 mg PO BID 04/02/18 04/22/18 History Exam Vital signs: Vital Signs 04/22/18 16:58 04/22/18 17:02 04/22/18 17:23 Temperature 98.1 F 98.1 F Pulse Rate 122 H 122 H 106 H Respiratory Rate 12 21 18 Blood Pressure 127/78 127/78 157/96 H Pulse Oximetry 99 98 98 04/22/18 18:50 04/22/18 21:49 04/23/18 00:00 Temperature 98.6 F 98.3 F Pulse Rate 96 H 89 86 Respiratory Rate 16 16 Blood Pressure 157/97 H 121/84 Pulse Oximetry 95 98 96 04/23/18 03:24 04/23/18 07:12 04/23/18 09:07 Temperature 98.2 F 98.6 F 98.1 F Pulse Rate 78 76 58 L Respiratory Rate 16 16 16 Blood Pressure 176/100 H 144/91 H 169/95 H Pulse Oximetry 93 L 97 99 04/23/18 10:28 04/23/18 10:44 04/23/18 11:19 Temperature 98.4 F 98.1 F 98.5 F Pulse Rate 56 L 54 L 54 L Respiratory Rate 16 16 16 Blood Pressure 138/76 153/82 H 157/77 H Pulse Oximetry 99 98 97 Intake & Output 04/22/18 04/23/18 04/23/18 18:59 06:59 18:59 Intake Total 0 / 0 Output Total 0 / 0 Balance 0 / 0 Weight 102.058 kg 102.058 kg Intake: Oral 0 / 0 Output: Urine 0 / 0 Other: # Voids 1 Weight On Admission 102.058 kg - Constitutional no acute distress - Routine HEENT Exam Head: Present: normocephalic - Routine Respiratory Exam Present: CTA bilaterally - Routine Cardiovascular Exam Present: RRR - Routine Abdominal Exam Present: soft, normoactive bowel sounds, organomegaly. Absent: tenderness - Routine Skin Exam Present: intact, dry - Routine Neurological Exam Present: alert, oriented X3 Results - Labs CBC & Chem 7: 04/22/18 17:45 04/23/18 03:09 Labs: Laboratory Results - last 24 hr 04/22/18 04/22/18 04/22/18 17:45 17:45 17:45 WBC 3.8 L RBC 3.43 L Hgb 12.6 L Hct 35.9 L MCV 104.4 H MCH 36.7 H MCHC 35.1 RDW 12.8 Plt Count 88 L MPV 7.8 Prelim Diff (Auto) Slide review pending Neut % (Auto) 59.4 Lymph % (Auto) 22.9 [place] % (Auto) 14.4 H Eos % (Auto) 2.6 Baso % (Auto) 0.7 Neut # (Auto) 2.3 Lymph # (Auto) 0.9 L [place] # (Auto) 0.5 Eos # (Auto) 0.1 Baso # (Auto) 0.0 WBC Differential . Diff Scan Auto diff confirmed Differential Comment . Platelet Estimate Low L Platelet Morphology Normal PT 13.8 H INR 1.4 APTT 29.4 Sodium 135 L Potassium 4.2 Chloride 103 Carbon Dioxide 23.6 Anion Gap 8 BUN 26 H Creatinine 1.82 H Estimated GFR 39 L Random Glucose 183 H Calcium 8.3 L Total Bilirubin 2.8 H AST 43 H ALT 21 Alkaline Phosphatase 127 H Troponin I Less than 0.02 L B-Natriuretic Peptide Total Protein 8.1 Albumin 2.5 L Lipase Peritoneal Albumin 04/22/18 04/22/18 04/23/18 19:44 20:31 02:35 WBC RBC Hgb Hct MCV MCH MCHC RDW Plt Count MPV Prelim Diff (Auto) Neut % (Auto) Lymph % (Auto) [place] % (Auto) Eos % (Auto) Baso % (Auto) Neut # (Auto) Lymph # (Auto) [place] # (Auto) Eos # (Auto) Baso # (Auto) WBC Differential Diff Scan Differential Comment Platelet Estimate Platelet Morphology PT INR APTT Sodium Potassium Chloride Carbon Dioxide Anion Gap BUN Creatinine Estimated GFR Random Glucose Calcium Total Bilirubin AST ALT Alkaline Phosphatase Troponin I Less than 0.02 L B-Natriuretic Peptide 48 Total Protein Albumin Lipase 524 H Peritoneal Albumin 04/23/18 04/23/18 04/23/18 03:09 03:09 09:36 WBC RBC Hgb Hct MCV MCH MCHC RDW Plt Count MPV Prelim Diff (Auto) Neut % (Auto) Lymph % (Auto) [place] % (Auto) Eos % (Auto) Baso % (Auto) Neut # (Auto) Lymph # (Auto) [place] # (Auto) Eos # (Auto) Baso # (Auto) WBC Differential Diff Scan Differential Comment Platelet Estimate Platelet Morphology PT INR APTT Sodium 139 Potassium 4.5 Chloride 105 Carbon Dioxide 25.8 Anion Gap 8 BUN 27 H Creatinine 1.69 H Estimated GFR 42 L Random Glucose 105 Calcium 7.9 L Total Bilirubin 2.5 H AST 43 H ALT 19 Alkaline Phosphatase 109 Troponin I Less than 0.02 L B-Natriuretic Peptide Total Protein 7.2 D Albumin 2.3 L Lipase Peritoneal Albumin 0.7 - Imaging Impressions Chest X-Ray 04/22/18 17:34 CONCLUSION: Stable appearance with no acute cardiopulmonary disease. Assessment and Plan - Plan - Refractory ascites- He was placed spironolactone, not on Lasix. He was seen by Dr. Bob yesterday for distended abd that was causing severe discomfort and shortness of breath and was instructed to go to the ED. Patient denies nausea, vomiting , melena or hematochezia. He had paracentesis today with 11 L removed per pt - New diagnosis of cirrhosis in March of unknown etiology complicated by ascites. Denies hx of alcohol abuse.liver work up in negative Plan: - Low salt diet - Aldactone 100 mg, Lasix 40 mg - Consider liver bx, tertiary referral as an OP - Will need EGD/colonoscopy as an OP - Supportive care - Pt seen and examined by Dr. Green and myself and this note is written on his behalf.
[2018-04-23 11:44] LABS: RBC,Peritoneal Fluid 204 /mm3 (0-0)
[2018-04-23 11:48] LABS: Neutrophils,Peritoneal Fluid 22 %
[2018-04-23 12:21] LABS: Hepatitits B Surface Antigen Nonreactive (Nonreactive)
[2018-04-23 12:31] LABS: Hepatitis A IgM Antibody Nonreactive (Nonreactive)
--- NOTE | 2018-04-23 13:51 | US ---
EXAM DATE: 04/23/2018 10:40 AM EST AGE/SEX: 53 years / Male INDICATIONS: Ascites. CLINICAL DATA: This is the patient's sequela encounter. Patient reports that signs and symptoms have been present for 3 weeks and indicates a pain score of 5/10. MEDICAL/SURGICAL HISTORY: Diabetes. Hypertension. . Paracentesis. Hip surgery. COMPARISON: [facility], US PARACENTESIS ABD W/IMAGE, 04/05/2018. . [place]UID: [place] [address] cc of clear, yellow fluid was removed. Fluid was sent to lab for ordered studie s. . . TECHNIQUE: Ultrasound guidance for abdominal paracentesis. Paracentesis. The risks, benefits, and alternatives to ultrasound guided paracentesis were explained to the patient in detail including the risk of bleeding and infection. Written and verbal informed consent was obt ained. With the patient on the ultrasound table, ultrasound imaging was used to select the most appropriate approach for paracentesis. Overlying skin was prepped and draped in the usual sterile fashion and wi th a local anesthetic, a dermatotomy was made with an 11 blade scalpel. A 6 [place] [id number] ca theter was introduced into the peritoneal cavity and fluid was collected. Post procedure scanning reveals no hematoma or other complication. The patient tolerated the procedu re well and left the ultrasound suite in stable condition. FINDINGS: Adequate fluid for paracentesis. CONCLUSION: 1. Uncomplicated paracentesis. Electronically signed by: Antwon Sanchez MD Board Certified Radiologist 04/23/2018 1:50 PM [facility]TE[facility] Jolly
[2018-04-23] MEDS ORDERED: Albumin Human 25% Inj 100 ML IV.SIG ONE (15:00)
[2018-04-23] MEDS: Albumin Human 25% Inj 250 ML IV.SIG ONE ×2 (15:07→15:59)
[2018-04-23] MEDS ORDERED: Dextrose 50% in Water 50 ML Vial IV.PUSH PRN (16:09)
--- NOTE | 2018-04-23 16:44 | P.CONNP ---
History of Present Illness Service: Nephrology Consult date: 04/23/18 Requesting Physician: Roni Chandler Reason for Consult: Acute renal failure Primary Care Provider: Pal Hinojosa MD Chief Complaint: Abdominal distention History of Present Illness: Patient is a 53-year-old male who has been diagnosed with cirrhosis of the liver he was having increasing ascites and tense distention causing him discomfort and he came to the emergency with these complaint, patient was noted to have hyponatremia and cirrhosis of the liver recently and has renal insufficiency, patient was discharged, she now is readmitted with complaints of abdominal distention 11 L of ascites fluid was removed Review of Systems Constitutional: Reports anorexia Gastrointestinal: Reports abdominal pain, Reports cramping, Reports feeling full early, Reports nausea Genitourinary: Reports decreased urination Musculoskeletal: Reports joint pain Skin/Breast: Reports other Neurologic: Reports other PMFSH - History History Provided By: Patient - Medical History Medical History: Medical History (Last Reviewed 04/23/18 @ 16:35 by Easton Nunez MD) Diabetes History of abdominal paracentesis Hypertension - Surgical History Surgical History: Surgical History (Last Reviewed 04/23/18 @ 16:35 by Easton Nunez MD) History of hip surgery - Family History Family History: Family History (Last Reviewed 04/23/18 @ 16:35 by Easton Nunez MD) Brother Colon cancer - Social History I have reviewed the patient's Social History: Yes - Tobacco History Second Hand Smoke Exposure: No Smoking Status: Never smoker - Alcohol History How Often Do You Have a Drink Containing Alcohol: Never - Substance Use History Substance History: No History of Abuse - Travel History Recent Travel in the [place] Within the Last 8 Weeks: No Recent Travel Out of the Country Within the Last 8 Weeks: No - Immunization History Tetanus Immunization: Unsure Medications and Allergies Active Medications: Active Medications Acetaminophen (Tylenol) 650 mg PO Q4H PRN PRN Reason: Temp > 100.4 Al Hydroxide/Mg Hydroxide (Milk Of Magnesia Liq) 30 ml PO Q12H PRN PRN Reason: Mild Constipation Bisacodyl (Dulcolax Supp) 10 mg RECTAL DAILY PRN PRN Reason: SEVERE CONSITIPATION Dextrose (D50w Vial) 50 ml IV.PUSH UNSCH PRN PRN Reason: PER HYPOGLYCEMIA PROTOCOL Furosemide (Lasix) 40 mg PO DAILY [facility] Glucagon (Glucagon Inj) 1 mg OTHER PRN PRN PRN Reason: for Hypoglycemia Protocol Albumin Human (Flexbumin 25% Inj) 100 mls @ 60 mls/hr IV.SIG ONCE ONE Stop: 04/23/18 16:39 Insulin Aspart (Novolog Insulin Correctional Sugar Inj) 0 unit SQ ACHS [facility]; Protocol Lactulose (Lactulose Liq) 30 ml PO DAILY PRN PRN Reason: SEVERE CONSITIPATION Metoprolol Tartrate (Lopressor) 100 mg PO BID [facility] Last Admin: 04/23/18 08:22 Dose: 100 mg Ondansetron HCl (Zofran Inj) 4 mg IV.PUSH Q6H PRN PRN Reason: NAUSEA OR VOMITING Sennosides (Senokot) 17.2 mg PO Q12H PRN PRN Reason: Moderate Constipation Sodium Chloride (Ns Flush) 2 ml IV.FLUSH BID [facility] Last Admin: 04/23/18 08:22 Dose: 2 ml Sodium Chloride (Ns Flush) 2 ml IV.FLUSH UNSCH PRN PRN Reason: FLUSH AFTER USING IV ACCESS Spironolactone (Aldactone) 50 mg PO BID@0900,1800 [facility] Tamsulosin HCl (Flomax) 0.4 mg PO DAILY [facility] Last Admin: 04/23/18 08:22 Dose: 0.4 mg Allergies Allergy/AdvReac Type Severity Reaction Status Date / Time carvedilol Allergy Severe skin Verified 04/18/18 09:34 peeling to hands and feet clonidine Allergy Severe Swelling Verified 04/18/18 09:34 Home Medications Medication Instructions Recorded Confirmed Type metformin 500 mg PO BID 04/02/18 04/22/18 History Exam Vital signs: Vital Signs 04/22/18 16:58 04/22/18 17:02 04/22/18 17:23 Temperature 98.1 F 98.1 F Pulse Rate 122 H 122 H 106 H Respiratory Rate 05 01 18 Blood Pressure 127/78 127/78 157/96 H Pulse Oximetry 99 98 98 04/22/18 18:50 04/22/18 21:49 04/23/18 00:00 Temperature 98.6 F 98.3 F Pulse Rate 96 H 89 86 Respiratory Rate 16 16 Blood Pressure 157/97 H 121/84 Pulse Oximetry 95 98 96 04/23/18 03:24 04/23/18 07:12 04/23/18 08:00 Temperature 98.2 F 98.6 F Pulse Rate 78 76 77 Respiratory Rate 16 16 Blood Pressure 176/100 H 144/91 H Pulse Oximetry 93 L 97 04/23/18 09:07 04/23/18 10:28 04/23/18 10:44 Temperature 98.1 F 98.4 F 98.1 F Pulse Rate 58 L 56 L 54 L Respiratory Rate 16 16 16 Blood Pressure 169/95 H 138/76 153/82 H Pulse Oximetry 99 99 98 04/23/18 11:19 Temperature 98.5 F Pulse Rate 54 L Respiratory Rate 16 Blood Pressure 157/77 H Pulse Oximetry 97 Intake & Output 04/22/18 04/23/18 04/23/18 18:59 06:59 18:59 Intake Total 0 / 0 Output Total 0 / 0 Balance 0 / 0 Weight 102.058 kg 102.058 kg Intake: Oral 0 / 0 Output: Urine 0 / 0 Other: # Voids 1 Weight On Admission 102.058 kg Narrative: GENERAL: Well-nourished, well-developed patient. SKIN: Warm and dry. HEAD: Normocephalic. EYES: No scleral icterus. No injection or drainage. NECK: Supple, trachea midline. No JVD or lymphadenopathy. CARDIOVASCULAR: Regular rate and rhythm without murmurs, gallops, or rubs. RESPIRATORY: Breath sounds equal bilaterally. No accessory muscle use. GASTROINTESTINAL: Abdomen soft, non-tender, distended. EXTREMITIES: No edema NEUROLOGICAL: Awake, alert, and oriented x 3. Non-focal. Results - Lab Results 04/22/18 17:45 04/23/18 03:09 Most recent lab results Calcium 7.9 mg/dL (8.5-10.1) L 04/23/18 03:09 Assessment and Plan - Assessment (1) Acute renal failure Code(s): N17.9 - Acute kidney failure, unspecified Status: Acute (2) Ascites Code(s): R18.8 - Other ascites Status: Acute (3) Cirrhosis Code(s): K74.60 - Unspecified cirrhosis of liver Status: Acute - Plan Check urine sodium, osmolality and creatinine Monitor lab Continue BMP Follow urine output Avoid nephrotoxic agent Continue with Lasix and Aldactone Patient has cirrhosis of the liver (2) Ascites Qualifiers: Ascites type: other type Qualified Code(s): R18.8 - Other ascites (3) Cirrhosis Qualifiers: Hepatic cirrhosis type: unspecified hepatic cirrhosis Ascites presence: with ascites Qualified Code(s): K74.60 - Unspecified cirrhosis of liver; R18.8 - Other ascites
[2018-04-23] MEDS: Spironolactone 50 MG Tablet PO SCH (19:25)
[2018-04-23] MEDS: Insulin NovoLOG Aspart Correctional Sugar Inj SQ SCH (19:26)
[2018-04-24 00:20] LABS: Sodium,Urine Random 24 meq/L
[2018-04-24 00:28] LABS: Creatinine,Urine Random 166 mg/dL (27-300)
[2018-04-24 00:30] LABS: Bilirubin,Urine Negative (Negative); Clarity,Urine Clear (Clear); Color,Urine Amber (Yellw/Straw); Glucose,Urine (UA) Negative (Negative); Hyaline Casts,Urine 9 /lpf (0-3); Leukocyte Esterase,Urine Negative (Negative); Mucus,Urine Few /lpf (Occasional); Nitrite,Urine Negative (Negative); Specific Gravity,Urine 1.019 (1.002-1.035); Squamous Epithelial Cell,Urine <1 /hpf (0-5)
[2018-04-24] MEDS: Insulin NovoLOG Aspart Correctional Sugar Inj SQ SCH ×3 (00:46→13:50)
[2018-04-24 03:19] VITALS: RESP 16
[2018-04-24 04:52] LABS: Hematocrit 30.5 % (39.0-51.0); Hemoglobin 10.6 gm/dL (13.0-17.0); Mean Corpuscular HGB Conc 34.9 % (32.0-36.0); Mean Corpuscular Volume 100.3 fL (80.0-100.0); Mean Platelet Volume 7.7 fL (7.0-11.0); Platelet Count 72 th/mm3 (150-450); Red Blood Count 3.04 mil/mm3 (4.50-5.90); Red Cell Distribution Width 12.8 % (11.6-17.2); White Blood Count 3.3 th/mm3 (4.0-11.0)
[2018-04-24 05:01] LABS: INR 1.5 Ratio; Prothrombin Time 15.2 sec (9.8-11.6)
[2018-04-24 05:21] LABS: Calcium 7.5 mg/dL (8.5-10.1); Carbon Dioxide 28.2 meq/L (21.0-32.0); Magnesium 1.7 mg/dL (1.5-2.5)
[2018-04-24 05:26] LABS: Alpha Fetoprotein Tumor Marker 3.8 ng/mL (0.5-8.0)
[2018-04-24] MEDS: Metoprolol Tartrate 100 MG Tablet PO SCH (08:15)
[2018-04-24] MEDS: Spironolactone 50 MG Tablet PO SCH (08:16)
[2018-04-24 08:40] VITALS: PULSE 57; TEMP 98.8
[2018-04-24] MEDS ORDERED: Furosemide 40 MG Tablet PO SCH (09:00)
[2018-04-24 11:21] LABS: Hematocrit 30.7 % (39.0-51.0); Hemoglobin 10.8 gm/dL (13.0-17.0); Mean Corpuscular Hemoglobin 35.8 pg (27.0-34.0); Mean Corpuscular Volume 102.4 fL (80.0-100.0); Mean Platelet Volume 7.3 fL (7.0-11.0); Platelet Count 71 th/mm3 (150-450); Red Cell Distribution Width 12.9 % (11.6-17.2); White Blood Count 3.8 th/mm3 (4.0-11.0)
[2018-04-24 11:23] VITALS: BP 129/75; O2SAT 99
[2018-04-24] MEDS ORDERED: fentaNYL Citrate Inj 250 MCG/5 ML Ampul ONE (11:58)
--- NOTE | 2018-04-24 12:46 | CT ---
EXAM DATE: 04/24/2018 12:33 PM EST AGE/SEX: 53 years / Male INDICATIONS: Abdominal pain, status post paracentesis 04/23/18. HGB low. CLINICAL DATA: This is the patient's initial encounter. Patient reports that signs and symptoms have been present for 1 day and indicates a pain score of 2/10. MEDICAL/SURGICAL HISTORY: Cirrhosis. Renal failure, acute. Diabetes. hypertension, ascites None. RADIATION DOSE: 9.14 CTDI (mGy) COMPARISON: [facility], CT ABDOMEN & PELVIS W CONTRAST, 04/02/2018. . TECHNIQUE: Multiple contiguous axial images were obtained through the abdomen. Images were obtained using multiple row detector helical technique. Using automated exposure control and adjustment of the mA and/or kV according to patient size, radiation dose was kept as low as reasonably achievable to o btain optimal diagnostic quality images. DICOM format image data is available electronically for rev iew and comparison. FINDINGS: Lower Lungs: The visualized lower lungs are clear. Coronary artery calcifications are noted. Liver: The liver remains cirrhotic in appearance with lobular outer contour and mild heterogeneity. T here is no focal mass or ductal dilatation. The gallbladder is smaller in size with surrounding ascit es. A moderate to large amount of ascitic fluid is noted surrounding the liver margin is well. Spleen: Splenomegaly is again noted with no focal mass. There is surrounding ascitic fluid. Pancreas: Unremarkable without mass or calcification. Kidneys: Normal in size and shape. No evidence of mass or hydronephrosis. There is a tiny nonobstruc ting left renal calculus now noted measuring 1 mm. Adrenal Glands: Unremarkable. Aorta: The aorta and proximal iliac vessels are grossly unremarkable without aneurysmal dilation. Bowel/Mesentery: No oral contrast was given limiting the sensitivity. There is a moderate to large a mount of ascitic fluid in the pelvis. There are multiple diverticuli in the sigmoid colon. There is n o free air. Abdominal Wall: Intact. Retroperitoneum: No evidence of adenopathy in the retrocrural, para-aortic, or deep pelvic regions. Bladder: Contours are smooth. Reproductive Organs: No abnormal masses or calcifications seen. Inguinal: The inguinal region is unremarkable without evidence of adenopathy. Bony Structures: Unremarkable. CONCLUSION: 1. Moderate to large amount of ascitic fluid again noted with no free air. 2. The liver remains cirrhotic in appearance with no focal abnormality. 3. Splenomegaly without change. 4. Tiny nonobstructing left renal calculus. 5. Diverticulosis. Electronically signed by: Basil Ross MD Board Certified Radiologist 04/24/2018 12:44 PM [facility] T
[2018-04-28 07:50] LABS: IgA Serum 776 mg/dL (81-463); Tissue Transglutaminase Ab IgG ND U/mL (())
== END 2018-04-24 16:47 | disposition home or self-care (01) ==
LOC: NEPE 16:28 → NEDH 16:28 → NEPGCP 21:22
PROVIDERS: ADMIT Internal Medicine; ATTEND Internal Medicine